=== PATIENT | male | born 1960 | race Caucasian/White ===

== ENCOUNTER → 2024-03-24 07:04 | Outpatient (REF) | payer OTHER, SELFPAY | LOC: HWRAD 07:04 | PROVIDERS: ATTENDING PHYSICIAN Physician Assistant | DX: R74.8 Abnormal levels of other serum enzymes (principal) | CPT/HCPCS: 76700 ==

== ENCOUNTER 2025-05-22 09:36 | Inpatient (IN) | payer OTHER, MEDICARE, SELFPAY ==
[2025-05-22] VITALS (9 sets, daily range): BP systolic 117–162; BP diastolic 81–104; BMI 29.6
--- NOTE | 2025-05-22 06:54 | ED.GENMED ---
History of Present Illness
<Dane Khan PA-C - Last Filed: 05/22/25 12:59>
General
Chief Complaint: Musculo-Skeletal Complaint
Source: patient
Time Seen by Provider: 05/22/25 06:31
History of Present Illness
History of Present Illness:
4-year-old male with past medical history of hypertension, hyperlipidemia, previous hep C (treated), hemochromatosis, diagnosed with new onset diabetes with a hemoglobin A1c of 7 presenting to the emergency department for evaluation of bilateral
lower extremity discomfort stating that he was recently treated for gout about 3 weeks ago and completed a course of prednisone and allopurinol with improvement of symptoms but this morning awoke stating when he got out of bed he felt as if his legs
were not working properly and that he was having trouble walking. Patient states that he had to go down his stairs sideways because he felt he could not move his legs to ambulate properly.. He did note some mild swelling to the left but not much
pain associated with this. Patient denies any fevers, bowel urinary incontinence, saddle anesthesias, back pain, focal weakness/numbness or paresthesia, chest pain or shortness of breath. Denies any history of similar. No reported trauma.
Past History
<Dane Khan PA-C - Last Filed: 05/22/25 12:59>
Past History
ED Past Medical History: HTN, Hypercholesterolemia and Other (GOUT, C. difficile)
ED Past Surgical History: Orthopedic
Social History
Tobacco: Non-smoker
Alcohol: None
Drug: None
Personal:
Living: with family
Employment: Employed
Family History
Family History: Other (Noncontributory)
Review of Systems
<Dane Khan PA-C - Last Filed: 05/22/25 12:59>
Review of Systems
All Other Systems: ROS reviewed and negative except as documented in HPI and ROS
Phy Exam
<Dane Khan PA-C - Last Filed: 05/22/25 12:59>
Physical Exam
Physical Exam:
GENERAL: Alert , in no apparent distress
HEAD: Normocephalic atraumatic
EYE: clear conjunctiva
NECK: Supple
ENT: o/p clr, mmm.
CARDIAC: Regular rate and rhythm .
LUNGS: Clear breath sounds bilaterally, no acute respiratory distress, no wheezes/rales/rhonchi
ABDOMEN: Soft, without focal tenderness, no r/g, no cvat
BACK: no focal areas of ttp
NEUROLOGICAL: Alert and oriented, no focal neuro deficits, sensation grossly intact to light touch bilateral lower extremities, EHL intact bilaterally, patellar deep tendon reflexes and equal bilaterally
SKIN: Warm and dry, skin intact. No rashes
MUSCULOSKELETAL: No edema, well perfused. Easily palpable pedal and tibial pulses. Cap refill less than 2 seconds. Patient allows for full range of motion at the hips, knee and ankle.
PSYCH: Normal and appropriate interaction.
Scores
<Dane Khan PA-C - Last Filed: 05/22/25 12:59>
Heart Failure Risk
Heart Failure Risk Score: Not Applicable
Heart Score for Chest Pain Patients
STEMI patient?: Not applicable
Withdrawal Assessment of Alcohol
Withdrawal Assessment Completed?: Not applicable
Course
<Dane Khan PA-C - Last Filed: 05/22/25 12:59>
Orders/Labs/Results
Orders:
Orders
05/22/25 Breakfast
Cholesterol Lowering
At Your Request: Full Participation
Cholesterol Lowering: Sodium, 2 Gram
05/22/25 06:42
Urinalysis Urgent
05/22/25 06:44
Bladder Scan- Treatment ONCE
05/22/25 07:05
C-Reactive Protein Urgent
Comment: ADD ON
CPK [Creatine Phosphokinase] Urgent
Complete Blood Count/With Diff Urgent
Comprehensive Metabolic Panel Urgent
Ehrlichia/Anaplasma by PCR [S] Urgent
Erythrocyte Sed Rate Urgent
Comment: ADD ON
Ferritin Urgent
Comment: ADD ON
Folate Urgent
Comment: ADD ON
Free T4 Urgent
Lyme Progressive Urgent
TSH Reflex To Free T4 Urgent
Comment: ADD ON
Uric Acid Urgent
Vitamin B12 Urgent
Comment: ADD ON
05/22/25 07:39
Add On- LAB Urgent
Tests Added?: CRP, CPK Isoenzyme Sed Rate, Ferritin, Folate, Vit B12, TSH to T4
Consult Neurology [NEUROLOGY CONSULT] Routine
Consulting Provider: Yandel Marr
Was physician already notified: Yes
05/22/25 08:48
EMG [Electromyography] Routine
Reason for Exam: with Rep Stim
05/22/25 08:49
Add On- LAB Routine
Comments:: Please add to today's labs or draw as routine
Tests Added?: Oztifhozaccdi-lszazn-Rgd
05/22/25 08:50
MR Thoracic Spine W/o & With Routine
Comment:
Reason For Exam: myelopathy
Recent pill cam endoscopy?: No
05/22/25 08:51
MR Lumbar W/o & With Contrast Routine
Comment:
Reason For Exam: myelopathy
Recent pill cam endoscopy?: No
05/22/25 08:55
Lorazepam [Ativan] 1 mg PO ONCE PRN PRN
05/22/25 09:07
Admit/Transfer Patient As Directed
Co-Sign Provider:
Level of Care: Inpatient admission
Assign to:: IMU- Intermediate Care
Physician / Group: Dr Douglas
Diagnosis: GBS
Reason for Hospitalization: GBS
Expected length of stay greater than two midnights?: Yes
ELOS- Estimated Length of Stay in days: 2
I certify the patient meets the requirements for IP care: Yes
PRN Pain Medication Management As Directed
May give lesser potent ordered pain med per pt: Yes
preference::
Protocol:: Medication orders for pain may be administered in a
manner that supports deferring to patient preference
when the pt is:
- Requesting an ordered lesser potent pain medication.
Least to most potent pain medications are defined
as: acetaminophen < NSAID < tramadol < opioids
(morphine, oxycodone, hydromorphone).
- Requesting a lesser dose of the same medication IF
ORDERED.
- Requesting a less intrusive route of administration
if both routes are prescribed by the provider (PO <
IV).
05/22/25 09:08
Code Status As Directed
Resuscitation Status: Full Code
05/22/25 09:15
Consult Physiatry [Physiatry Consult] Routine
Consulting Provider: Iraj Staley
Was physician already notified: Yes
Reason for consult: emg/ Myasthenia or GBS or other
05/22/25 09:17
Acetylcholine Receptor Bind Ab [S] Routine
Copper, Serum [S] Routine
Comment: may use blood in lab
Vitamin D, 25-OH Routine
Comment: may add to blood in lab
Vitamin E [S] Routine
Comment: May add to blood in lab
05/22/25 11:05
Acetaminophen [Tylenol] 650 mg PO Q4HPRN PRN
Bisacodyl [Dulcolax] 10 mg RECTAL [id number] PRN
Docusate W/Senna [Senokot-S] 1 tablet PO BIDPRN PRN
Polyethylene Glycol Powder [Miralax] 17 grams PO DAILYPRN PRN
05/22/25 11:05
Activity As Directed
Activity Level: Out of Bed-Early Mobility
Vital Signs As Directed
Frequency: Per unit guidelines
DX Deep Vein Thrombosis Video Routine
05/22/25 18:00
Enoxaparin Sodium [Lovenox] 40 mg SC QPM
05/23/25 06:00
Basic Metabolic Panel IN AM
Complete Blood Count/With Diff IN AM
Abnormal Lab Results
05/22/25
07:05
WBC 11.2 H 10^3/uL
(4.8-10.8)
RBC 4.42 L 10^6/uL
(4.70-6.10)
MCH 32.1 H pg
(27.0-31.0)
Abs Immat Gran (auto) 0.1 H 10^3/uL
(0-0.05)
Absolute Neuts (auto) 7.2 H 10^3/uL
(1.4-6.5)
Absolute Monos (auto) 0.9 H 10^3/uL
(0.1-0.6)
Immature Gran % 1.3 H %
(0-0.5)
Glucose 147 H mg/dl
(70-99)
Ferritin 590.0 H ng/ml
(17.9-464.0)
ALT 56 H U/L
(0-50)
C-Reactive Protein 25.20 H mg/L
(0.0-10.00)
Folate > 20.0 H ng/ml
(2.76-20)
TSH (Reflex) 6.52 H uIU/ml
(0.47-4.68)
05/22/25 07:05
05/22/25 07:05
Vital Signs
Initial and Last Documented VS:
Initial Vital Signs
Temp Pulse Resp BP Pulse Ox
99.3 F 97 16 130/89 99
05/22/25 06:25 05/22/25 06:25 05/22/25 06:25 05/22/25 06:25 05/22/25 06:25
Last Documented Vital Signs
Temp Pulse Resp BP Pulse Ox
99.3 F 89 16 117/81 97
05/22/25 06:25 05/22/25 12:27 05/22/25 11:35 05/22/25 12:22 05/22/25 12:27
<Russell Wood, DO - Last Filed: 05/22/25 12:50>
Orders/Labs/Results
Orders:
Orders
05/22/25 Breakfast
Cholesterol Lowering
At Your Request: Full Participation
Cholesterol Lowering: Sodium, 2 Gram
05/22/25 06:42
Urinalysis Urgent
05/22/25 06:44
Bladder Scan- Treatment ONCE
05/22/25 07:05
C-Reactive Protein Urgent
Comment: ADD ON
CPK [Creatine Phosphokinase] Urgent
Complete Blood Count/With Diff Urgent
Comprehensive Metabolic Panel Urgent
Ehrlichia/Anaplasma by PCR [S] Urgent
Erythrocyte Sed Rate Urgent
Comment: ADD ON
Ferritin Urgent
Comment: ADD ON
Folate Urgent
Comment: ADD ON
Free T4 Urgent
Lyme Progressive Urgent
TSH Reflex To Free T4 Urgent
Comment: ADD ON
Uric Acid Urgent
Vitamin B12 Urgent
Comment: ADD ON
05/22/25 07:39
Add On- LAB Urgent
Tests Added?: CRP, CPK Isoenzyme Sed Rate, Ferritin, Folate, Vit B12, TSH to T4
Consult Neurology [NEUROLOGY CONSULT] Routine
Consulting Provider: Yandel Marr
Was physician already notified: Yes
05/22/25 08:48
EMG [Electromyography] Routine
Reason for Exam: with Rep Stim
05/22/25 08:49
Add On- LAB Routine
Comments:: Please add to today's labs or draw as routine
Tests Added?: Hrhlbvnezjpit-ybavhs-Ucy
05/22/25 08:50
MR Thoracic Spine W/o & With Routine
Comment:
Reason For Exam: myelopathy
Recent pill cam endoscopy?: No
05/22/25 08:51
MR Lumbar W/o & With Contrast Routine
Comment:
Reason For Exam: myelopathy
Recent pill cam endoscopy?: No
05/22/25 08:55
Lorazepam [Ativan] 1 mg PO ONCE PRN PRN
05/22/25 09:07
Admit/Transfer Patient As Directed
Co-Sign Provider:
Level of Care: Inpatient admission
Assign to:: IMU- Intermediate Care
Physician / Group: Dr Douglas
Diagnosis: GBS
Reason for Hospitalization: GBS
Expected length of stay greater than two midnights?: Yes
ELOS- Estimated Length of Stay in days: 2
I certify the patient meets the requirements for IP care: Yes
PRN Pain Medication Management As Directed
May give lesser potent ordered pain med per pt: Yes
preference::
Protocol:: Medication orders for pain may be administered in a
manner that supports deferring to patient preference
when the pt is:
- Requesting an ordered lesser potent pain medication.
Least to most potent pain medications are defined
as: acetaminophen < NSAID < tramadol < opioids
(morphine, oxycodone, hydromorphone).
- Requesting a lesser dose of the same medication IF
ORDERED.
- Requesting a less intrusive route of administration
if both routes are prescribed by the provider (PO <
IV).
05/22/25 09:08
Code Status As Directed
Resuscitation Status: Full Code
05/22/25 09:15
Consult Physiatry [Physiatry Consult] Routine
Consulting Provider: Iraj Staley
Was physician already notified: Yes
Reason for consult: emg/ Myasthenia or GBS or other
05/22/25 09:17
Acetylcholine Receptor Bind Ab [S] Routine
Copper, Serum [S] Routine
Comment: may use blood in lab
Vitamin D, 25-OH Routine
Comment: may add to blood in lab
Vitamin E [S] Routine
Comment: May add to blood in lab
05/22/25 11:05
Acetaminophen [Tylenol] 650 mg PO Q4HPRN PRN
Bisacodyl [Dulcolax] 10 mg RECTAL [id number] PRN
Docusate W/Senna [Senokot-S] 1 tablet PO BIDPRN PRN
Polyethylene Glycol Powder [Miralax] 17 grams PO DAILYPRN PRN
05/22/25 11:05
Activity As Directed
Activity Level: Out of Bed-Early Mobility
Vital Signs As Directed
Frequency: Per unit guidelines
DX Deep Vein Thrombosis Video Routine
05/22/25 18:00
Enoxaparin Sodium [Lovenox] 40 mg SC QPM
05/23/25 06:00
Basic Metabolic Panel IN AM
Complete Blood Count/With Diff IN AM
Abnormal Lab Results
05/22/25
07:05
WBC 11.2 H 10^3/uL
(4.8-10.8)
RBC 4.42 L 10^6/uL
(4.70-6.10)
MCH 32.1 H pg
(27.0-31.0)
Abs Immat Gran (auto) 0.1 H 10^3/uL
(0-0.05)
Absolute Neuts (auto) 7.2 H 10^3/uL
(1.4-6.5)
Absolute Monos (auto) 0.9 H 10^3/uL
(0.1-0.6)
Immature Gran % 1.3 H %
(0-0.5)
Glucose 147 H mg/dl
(70-99)
Ferritin 590.0 H ng/ml
(17.9-464.0)
ALT 56 H U/L
(0-50)
C-Reactive Protein 25.20 H mg/L
(0.0-10.00)
Folate > 20.0 H ng/ml
(2.76-20)
TSH (Reflex) 6.52 H uIU/ml
(0.47-4.68)
05/22/25 07:05
05/22/25 07:05
Vital Signs
Initial and Last Documented VS:
Initial Vital Signs
Temp Pulse Resp BP Pulse Ox
99.3 F 97 16 130/89 99
05/22/25 06:25 05/22/25 06:25 05/22/25 06:25 05/22/25 06:25 05/22/25 06:25
Last Documented Vital Signs
Temp Pulse Resp BP Pulse Ox
99.3 F 89 16 117/81 97
05/22/25 06:25 05/22/25 12:27 05/22/25 11:35 05/22/25 12:22 05/22/25 12:27
<Dane Khan PA-C - Last Filed: 05/22/25 12:59>
MDM/Problems Addressed
Differential Diagnosis Includes:
Rhabdomyolysis
Lumbar radiculopathy
Spinal stenosis
Myelopathy
Guillan [place]
Cauda equina
Epidural abscess
Osteomyelitis/discitis
Electrolyte imbalance
Lyme or other tickborne illness
MDM/Problems Addressed:
64-year-old male presenting to the ER for evaluation of bilateral lower remedy weakness, having difficult time ambulating. No fevers or infectious symptoms presently. Exam is reassuring and the fact that patient is moving all extremities, no focal
neurologic status noted. Will check labs. Disposition pending.
<Dane Khan PA-C - Last Filed: 05/22/25 12:59>
*Pulse Oximetry
SaO2: 99
Oxygen Mode of Delivery: Room air
Patient hypoxic: no
*Critical Care Note
Total Time (30-74mins, 75-104mins- exclusive of procedures): Not Applicable
<Dane Khan PA-C - Last Filed: 05/22/25 12:59>
Patient Management
Discussion with other providers: Hospitalist and Hot Frame Tender
Escalation/DeEscalation of care consider admission/obs:
Patient seen by neurology who is recommending patient be admitted for further evaluation. They have ordered MRI of the thoracic and lumbar spine in addition to ordering an EMG. They will also be ordering IVIG to be initiated on the patient today.
Hospitalist team was notified and accepts for continued evaluation and treatment. Patient updated on the treatment plan
ED Attending Note
<Dane Khan PA-C - Last Filed: 05/22/25 12:59>
-
Portions of this chart may have been created with voice recognition software.� Occasional wrong word or��sound alike� substitutions may have occurred due to the inherent limitations of voice recognition software.
<Russell Wood DO - Last Filed: 05/22/25 12:50>
ED Attending Note
Patient seen and examined by attending physician: Yes
ED Attending Note:
I have reviewed and agree with history and treatment plan by Brandyn Khan PA-C. My exam revealed mild left ptosis, otherwise normal. Concern for possible Guillain-Ramirez� syndrome. Difficulty walking. Patient will require further evaluation.
Neurology consulted.
Discharge Plan
Departure
Patient Disposition: Admit
Date of Disposition: 05/22/25
Time of Disposition: 09:14
Presentation/result/management discussed w/ accepting MD/DO: Hospitalist
Discharge Problem:
Weakness of both lower extremities
Interventions
Interventions:
*Risk Screen - Suicide Last Done: 05/22/25 06:25
*General Assessment Last Done: 05/22/25 06:44
*Neglect/Abuse Screening Last Done: 05/22/25 06:25
*ED- Fall Risk Assessment Last Done: 05/22/25 06:25
*ED COVID-19 Vaccine History Last Done: 05/22/25 06:25
ED-Musculoskeletal Assessment Last Done: 05/22/25 06:44
[2025-05-22 07:13] LABS: Hematocrit 41.3 % (39.0-52.0); Hemoglobin 14.2 g/dL (13.0-18.0); Mean Corp Hgb Conc. 34.4 g/dL (33.0-37.0); Mean Corpuscular Volume 93.4 fL (80.0-94.0); Nucleated Red Blood Cells % 0 % (-); Platelet Count 258 10^3/uL (130-400); Red Cell Dist. Width 13.4 % (11.5-14.5)
[2025-05-22 07:24] LABS: ALT (SGPT) 56 U/L (0-50); AST (SGOT) 55 U/L (17-59); Albumin 4.7 g/dl (3.5-5.0); Alkaline Phosphatase 65 U/L (38-126); Blood Urea Nitrogen 19 mg/dl (9-20); Calcium 9.3 mg/dl (8.4-10.2); Carbon Dioxide 23 mmol/L (22-30); Chloride 103 mmol/L (98-107); Estimated Creatinine Clearance 83 ml/min; Glucose 147 mg/dl (70-99); Potassium 4.6 mmol/L (3.5-5.1); Sodium 137 mmol/L (135-145); Total Protein 7.4 g/dl (6.3-8.2); Uric Acid 5.5 mg/dl (3.5-8.5); eGFR > 60.00
[2025-05-22 08:28] LABS: C-Reactive Protein 25.20 mg/L (0.0-10.00)
--- NOTE | 2025-05-22 08:36 | CON.NEURO4 ---
Addendum entered and electronically signed by Yandel Marr MD 05/22/25 10:43:
Studies reviewed.
I have personally examined the patient. I reviewed and agree with the DRY CLEANING CHECKER's Note.
My addenda:
Awake, alert, interactive. No acute distress.
Speech intact.
Follows 2-step requests w/o difficulty. No tremor.
Extra-ocular movements grossly intact.
Facial movements full and symmetric. Hearing intact to normal conversational volume.
Normal UE movements bilaterally. 4-5 strength bilateral lower extremities proximally and full distally.
Neck: full ROM.
Chest: no dyspnea
Heart: no JVD
Ext: (-) Clubbing, (-) Cyanosis, (-) Edema
IMPRESSIONS/RECOMMENDATIONS:
Abrupt onset of bilateral lower extremity weakness and left eye ptosis which is fatigable
Differential diagnosis includes myasthenia gravis/Lambert-Eaton myasthenic syndrome or myopathy which is less likely. Differential diagnosis also includes 2 unrelated processes including the left eye ptosis and potential spinal abnormality
producing bilateral proximal weakness although this is less likely, especially in light of absence of bladder and bowel dyscontrol.
Check EMG with repetitive stimulation EMG due to the possibility of neuromuscular junction abnormality. Appreciate assistance of physiatry with this testing
Check blood work potential metabolic abnormalities
Initiate immunoglobulin 400 milligrams per kilogram per day x 5 days in hopes of remediating possible neuromuscular junction abnormality
Check MRI of thoracic and lumbar spines with and without contrast to better determine if there is a structural abnormality producing symptoms in the lower extremities
Provide lorazepam prior to MRI imaging
Would avoid steroid use as this might have been the catalyst for onset of symptoms
Would hold use of atorvastatin due to the possibility of myopathy due to the same, restart based on EMG results
D/W patient
All questions answered.
Will continue to follow patient.
Original Note:
Consultation - Neurology 4
-
CONSULTING PHYSICIAN: Yandel Marr MD
REFERRING PHYSICIAN: ER/Dane Khan PA-C
DICTATED BY: MILADY Yao
DATE/TIME OF REQUEST: 05/22/25
DATE/TIME OF CONSULTATION: 05/22/25
Reason for Consultation: Bilateral leg discomfort
History of Present Illness:
This is a 64-year-old right-handed male who has presented to the hospital with report of bilateral lower extremity discomfort and gait ataxia. Patient reports that for the past several months he has been following with Rheumatology due to gout and
possible arthritis, he has been having intermittent left ankle swelling. He was initially on colchicine, allopurinol, and prednisone; he notes colchicine was stopped a few weeks ago. He notes that he used to walk a lot and workout daily but notes
that as of January 2025 he has been more fatigued and not walking as much due to feet discomfort. He reports having cramps in bilateral thighs last evening, he drank an electrolyte drink and went to bed in his usual state last night. This morning
(05/22/25) he woke up around 0430 and reports he couldn't walk normally. He notes a tingling discomfort equally in bilateral thighs that spreads down his legs to his toes. This discomfort resolves when he is completely at rest. When he lifts his legs
up, stands, or walks the discomfort returns/increases. He also notes that his left ankle is mildly swollen again. He denies any headache, dizziness, vision changes, neck/back pain, and bladder/bowel dysfunction.
Past Medical History: HTN, HLD, NIDDM, hemochromatosis, hepatitis C, Tophi gout, arthritis, C. diff, iron deficiency, submucosal lesion of the stomach
Surgical History: Liver biopsy, surgical debridement L great toe due to gout
Family History: Reviewed and noncontributory.
Social History: Denies tobacco, alcohol, and illicit drug use.
Allergies: Levofloxacin, metronidazole, shellfish, bees.
Home Medications: See below.
Review of Symptoms:
Patient denies any fever, headache, chest pain, shortness of breath, GI or symptoms.
�Per the HPI.�All systems are reviewed negative except above.
Physical Exam:
The patient is afebrile, abdomen is nondistended, breathing is unlabored, skin is warm and dry, trace left ankle edema.
Neurologic Examination:
The patient is awake, alert and oriented x 3. He is able to follow commands and answer questions appropriately. There is no aphasia or dysarthria. On cranial nerve assessment, pupils are 3 mm bilateral, round and reactive to light and
accommodation. Visual bhakta are full. Extraocular movements are intact, reports diplopia with upgaze and left upgaze. Facial sensations are intact and bilaterally symmetrical. There is a slight ptosis on the left. Hearing is intact bilaterally to
normal conversation volume. Tongue palate and uvula are midline. Sternocleidomastoid strengths are full bilaterally. Neck flexion/extension is 5/5. Motor strengths are 5/5 bilateral upper and 4+/5 proximal bilateral lower extremities, 5/5 bilateral
dorsiflexion/extension on medical research [place] scale. There is no drift or involuntary movement noted. Deep tendon reflexes are 1+ bilateral upper and lower extremities and Babinski is absent bilaterally. Sensation of temperature and vibration
are intact. There was no extinction noted on double simultaneous stimulation. Coordination is intact by finger to nose bilaterally.
Lab Results: See below.
Neuro Imaging: None.
Differentials for the patient's presentation include:
1. Concern for myasthenia gravis producing proximal bilateral lower extremity weakness and left ptosis/diplopia; possibly triggered by steroid exposure. Myopathy (in the setting of colchicine/statin use) or spinal abnormality also possibly
contributing to symptoms but less likely.
Patient has the following risk factors for their symptoms: Colchicine/statin/prednisone use
Recommendations:
-Ordering an EMG with repetitive stimulation.
-MRI thoracic and lumbar spine pending.
-Start IVIG x5 days now.
-Would avoid statin usage until EMG is obtained.
-PT/OT evaluations.
-DVT prophylaxis.
Discussed patient care with: Dr. Marr, the patient
Vital Signs and Labs
-
Vital Signs and Labs:
Vital Signs
Temp Pulse Resp BP Pulse Ox
99.3 F 97 16 130/89 99
05/22/25 06:25 05/22/25 06:25 05/22/25 06:25 05/22/25 06:25 05/22/25 07:00
Lab Results
05/22/25 07:05
05/22/25 07:05
Sodium 137 mmol/L (135-145) 05/22/25 07:05
Potassium 4.6 mmol/L (3.5-5.1) 05/22/25 07:05
BUN 19 mg/dl (9-20) 05/22/25 07:05
Glucose 147 mg/dl (70-99) H 05/22/25 07:05
Calcium 9.3 mg/dl (8.4-10.2) 05/22/25 07:05
Vitamin B12 Cancelled 05/22/25 07:34
Medications
-
Active Medications
Generic Name Dose Route Start Last Admin
Trade Name Freq PRN Reason Stop Dose Admin
Immune Globulin 30 gram 05/22/25 08:52
Immune Globulin (Calculator Uses Ibw) - Pharmacy To Place Order 0.4 gram/kg (30 gram) 05/22/25 08:53
IV
DIRECTED ONE
Home Medications
�Medication �Instructions �Recorded
atorvastatin 10 mg tablet 20 mg PO HS High cholesterol 11/14/14
lisinopril 20 mg tablet 20 mg PO HS ##0 12/17/14
pantoprazole 40 mg tablet,delayed 40 mg PO DAILY 01/05/22
release
[id number] 140 gram-sod sulfate 9 1 ea PO DIRECTED 01/05/22
gram-NaCl 5.2gram-KCl-C oral pwdr
packs (Plenvu)
[2025-05-22 09:06] LABS: Ferritin 590.0 ng/ml (17.9-464.0)
--- NOTE | 2025-05-22 09:10 | HPS.HSE ---
Family Physician
-
Family Physician:
Chief Complaint
-
LE weakness
History of Present Illness
Patient is 64 years old male with history of hypertension, hyperlipidemia, gout, hypothyroidism, presented to the hospital with sudden onset of lower extremity weakness. Patient experienced bilateral lower extremity weakness and ataxia since last
evening. Patient started having some cramps on his legs and he has been taking steroids prescribed by his social welfare research worker as outpatient over the last few weeks that was transitioned from colchicine. Patient was unable to walk up the stairs due to
his profound weakness and he also noted some ankle swelling and also paresthesias with numbness/tingling sensation on both legs. He denied any dizziness, vision changes, bowel bladder incontinence. He denies any fevers or chills. He did have some
mild neck discomfort at some point but improved with regular NSAID's. In the ER neurology was consulted and recommended IV Ig and further workup. He was referred to hospitalist service for further evaluation.
Medical History
Past Medical History
Past Medical History: Reports Other (Hypertension, hyperlipidemia, gout, hypothyroidism, diabetes mellitus, hemochromatosis, hepatitis C, tophi gout, arthritis, iron deficiency anemia, C. difficile in the past, submucosal lesion of the stomach.)
Past Surgical History: Reports Other (Liver biopsy, left great toe surgical debridement due to gout.)
Social History
Tobacco: Non-smoker
Alcohol: None
Drug: None
Family History
Family History: Not pertinent
Allergies / Home Medications
Allergies reflects when Allergies were last updated in [facility].
Home Medications with original date entered in [facility]
Allergy/Medication List:
Allergies
Allergy/AdvReac Type Severity Reaction Status Date / Time
levofloxacin (From Levaquin) AdvReac Nausea / Verified 05/22/25 06:24
Vomiting
metronidazole (From Flagyl) AdvReac Nausea / Verified 05/22/25 06:24
Vomiting
Home Medications
atorvastatin 10 mg tablet 20 mg PO HS High cholesterol 11/14/14
lisinopril 20 mg tablet 20 mg PO HS ##0 12/17/14
allopurinol 300 mg tablet 600 mg PO HS 05/22/25
ibuprofen 200 mg tablet (Advil) 200 mg PO Q6HPRN PRN mild pain 05/22/25
levothyroxine 75 mcg tablet (Synthroid) 75 mcg PO DAILY 05/22/25
prednisone 5 mg tablet 5 mg PO DAILY 05/22/25
psyllium 1 packet PO DAILY 05/22/25
therapeutic multivitamin 1 tab PO DAILY 05/22/25
Review of Systems
-
A 12 point ROS was completed and negative except as noted: Yes
Physical Exam
Vital Signs
Vital Signs
Temp Pulse Resp BP Pulse Ox
99.3 F 97 16 130/89 99
05/22/25 06:25 05/22/25 06:25 05/22/25 06:25 05/22/25 06:25 05/22/25 07:00
Physical exam:
General: Acutely ill
HEENT: Normocephalic, Atraumatic and Moist Mucous Membranes
Respiratory: Clear to Auscultation; Negative Wheezes, Rales or Rhonchi
Cardiac: Regular Rhythm and S1/S2
GI: Soft, Nontender and Nondistended
Musculoskeletal: No Clubbing, No Cyanosis and No Edema
Neuro: Awake, Alert and Oriented, strength 4 out of 5 in both extremities, deep tendon reflexes are absent, cranial nerves are intact but mild L ptosis, no sensory deficits
Psych: Calm
Physical Exam
General: Other
Laboratory Results
-
05/22/25 07:05
05/22/25 07:05
Laboratory Results
Total Bilirubin 1.0 mg/dl (0.2-1.3) 05/22/25 07:05
AST 55 U/L (17-59) 05/22/25 07:05
ALT 56 U/L (0-50) H 05/22/25 07:05
Alkaline Phosphatase 65 U/L (38-126) 05/22/25 07:05
Data Reviewed
-
Lab Data: Labs Reviewed by me
Impression/Plan
-
IMPRESSION:
Patient is 64 years old male came into the hospital with sudden onset of significant bilateral lower extremity weakness. Patient's presentation is very concerning for an neurological process so he will need to be treated and have workup currently
in the hospital.
PLAN:
Lower extremity weakness and mild ptosis:
Differential diagnosis includes myasthenia gravis versus Guillain-Ramirez� versus steroid myopathy versus spinal occupying lesion pathology versus other.
Plan for MRI thoracic and lumbar spine
Plan for EMG with repetitive stimulation
Check acetylcholine receptor antibody
Started on IV immunoglobulin
Neurology consult appreciated
Hyperlipidemia:
Hold statin for now and obtain CPK (normal) and EMG
Hypertension:
Continue lisinopril 20 mg p.o. daily
Monitor blood pressure and adjust medications accordingly
Hypothyroidism:
Obtain TSH
Continue thyroid replacement-he does not recall exactly the doses but he appears to be on 75 mcg p.o. daily
Gout:
Continue allopurinol-he is on 600 mg every evening.
Hold steroids
DVT prophylaxis:
Lovenox SQ
CODE STATUS:
Full code
Time spent 75 minutes
[2025-05-22 09:29] LABS: CKMB 1.6 ng/ml (0.0-3.4)
[2025-05-22 09:38] LABS: Folate > 20.0 ng/ml (2.76-20); Vitamin B12 442 pg/ml (239-931)
[2025-05-22 09:56] LABS: Vitamin D, 25-OH*** 40.4 ng/mL (30-80)
[2025-05-22] MEDS: GAMMAGARD 300 IV (12:24)
--- NOTE | 2025-05-22 13:50 | CM ---
Met with patient at bedside in the ED
Pharmacy verified: [facility] @ [address], [place]
Patient lives w/ and daughter (age 27); multilevel home; 2 steps to enter, 13 steps between floors; railings on inside stairs; half bath 1st floor; 2nd floor bath has tub w/shower
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
NO SNF or Home Health utilization history
Drove self to hospital; plans to drive self home
Plan: Discharge to home when stable; do not anticipate needs; Case Management will monitor and support if services recommended
--- NOTE | 2025-05-22 16:12 | W.PN.UPDATE ---
Update Note
Progress Note Update
Electrodiagnostic examination was completed at the patient's bedside.
Needle EMG of the left upper and left lower limbs was performed.
Nerve conduction studies of both lower limbs and the left upper limb was performed.
Repetitive nerve stimulation technique of the left facial and left ulnar nerves was performed.
Electrodiagnostic Findings:
Normal left facial motor and left ulnar motor nerve repetitive stimulation technique.
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
Full dictated report and tabular data to follow.
[2025-05-22] MEDS: LOVENOX 40 MG SC (18:02)
--- NOTE | 2025-05-22 18:07 | PTCARENOTE ---
Pt from Er AAO3 pleasant and cooperative, mostly independent .
--- NOTE | 2025-05-22 21:09 | PTCARENOTE ---
Received pt at change of shift. AAOx3. Pt states weakness in legs is still present but better. Able to stand at bedside with little difficulty; steady on feet. C/o tingling and pain from left ankle to left knee. Says that happens on occasion
and will 'eventually' subside. Left ankle has trace to +1 swelling. +PP. Lungs CTA; no difficulty breathing. NSR on monitor. Resting in bed with call silverman in reach.
[2025-05-22] MEDS: ZYLOPRIM 600 MG PO (22:30)
[2025-05-22] MEDS: ZESTRIL 20 MG PO (22:30)
[2025-05-22] MEDS: ULTRAM 25 MG PO (22:43)
--- NOTE | 2025-05-22 23:12 | PTCARENOTE ---
Pt c/o of increased pain in left leg; 10/10 from ankle to thigh. Notified FREIGHT ENGINEER. 1x dose of Tramadol ordered and administered. Ice pack also in place.
[2025-05-23] VITALS (21 sets, daily range): BP systolic 113–168; BP diastolic 73–110
[2025-05-23] MEDS: SYNTHROID 75 MCG PO (05:04)
[2025-05-23 05:25] LABS: Hematocrit 40.9 % (39.0-52.0); Hemoglobin 14.1 g/dL (13.0-18.0); Mean Corp Hgb Conc. 34.5 g/dL (33.0-37.0); Mean Corpuscular Volume 94.7 fL (80.0-94.0); Nucleated Red Blood Cells % 0 % (-); Platelet Count 247 10^3/uL (130-400); Red Cell Dist. Width 13.4 % (11.5-14.5)
[2025-05-23 05:36] LABS: Blood Urea Nitrogen 16 mg/dl (9-20); Calcium 9.1 mg/dl (8.4-10.2); Carbon Dioxide 24 mmol/L (22-30); Chloride 102 mmol/L (98-107); Estimated Creatinine Clearance 82 ml/min; Glucose 154 mg/dl (70-99); Potassium 4.5 mmol/L (3.5-5.1); Sodium 134 mmol/L (135-145); eGFR > 60.00
[2025-05-23] MEDS: THERAGRAN 1 TABLET PO (08:06)
[2025-05-23] MEDS: LIDOCAINE 4% PATCH 1 PATCH TOPICAL (08:06)
[2025-05-23] MEDS: METAMUCIL, KONSYL 1 PACKET PO (08:07)
--- NOTE | 2025-05-23 08:35 | PTCARENOTE ---
On walking rounds , pt co of L leg pain states L ankle was swollen now R ankle is swollen, also states he needs a med to do MRI, pt syaes he will not be able to lay flat as long as he has this leg pain. Ptbelieves the Allopurinol is making it worse
and he believes indomethacin works best. Tramdol did not help pain. Pt did not sleep all night
--- NOTE | 2025-05-23 09:15 | W.PN.HOSP.TC ---
Today's Communication/Plan
-
IVIG. MRI back.
Assessment / Plan
Assessment / Plan
Physical exam:
General: Acutely ill
HEENT: Normocephalic, Atraumatic and Moist Mucous Membranes
Respiratory: Clear to Auscultation; Negative Wheezes, Rales or Rhonchi
Cardiac: Regular Rhythm and S1/S2
GI: Soft, Nontender and Nondistended
Musculoskeletal: No Clubbing, No Cyanosis and No Edema
Neuro: Awake, Alert and Oriented, strength 4 out of 5 in both extremities, deep tendon reflexes are absent, cranial nerves are intact but mild L ptosis, no sensory deficits
Psych: Calm
A/P:
Lower extremity weakness and mild ptosis:
Differential diagnosis includes myasthenia gravis versus Guillain-Ramirez� versus steroid myopathy versus spinal occupying lesion pathology versus other.
Plan for MRI thoracic and lumbar spine
Possible LP
Status post EMG with repetitive stimulation
Check acetylcholine receptor antibody
Started on IV immunoglobulin
Neurology consult appreciated
Hyperlipidemia:
Hold statin for now and obtain CPK (normal) and EMG
Hypertension:
Continue lisinopril 20 mg p.o. daily
Monitor blood pressure and adjust medications accordingly
Hypothyroidism:
Obtain TSH
Continue thyroid replacement-he does not recall exactly the doses but he appears to be on 75 mcg p.o. daily
Gout:
Continue allopurinol-he is on 600 mg every evening.
Hold steroids
DVT prophylaxis:
Lovenox SQ
CODE STATUS:
Full code
Total time spent on today's encounter was 55 minutes which included time spent in counseling the patient/family regarding diagnosis and treatment plan as listed above, goals of care, and symptom management. Case was discussed with nursing staff,
specialists, and care coordinators/case management. All labs and imaging personally reviewed by me. Remainder the time spent in detailed review of previous records, lab data, imaging, and other medical provider documentation.
Anticipated Discharge: > 48 hours
Subjective/Interval History
-
Date of Service: May 23, 2025
Patient described weaker in his lower extremities. Also complaints of severe left knee pain from gout. No chest pain or shortness of breath. Afebrile
Objective Data
-
Labs:
Laboratory Results
05/23/25
05:02
WBC 9.9
Hgb 14.1
Hct 40.9
Plt Count 247
Sodium 134 L
Potassium 4.5
Chloride 102
Carbon Dioxide 24
BUN 16
Creatinine 0.9
Glucose 154 H
Calcium 9.1
Vital Signs:
Vital Signs
Temp Pulse Resp BP Pulse Ox
98.2 F 100 16 113/101 96
05/23/25 07:00 05/23/25 08:00 05/23/25 08:00 05/23/25 08:00 05/23/25 08:00
I&O
05/22/25 05/23/25 05/24/25
06:59 06:59 06:59
Output Total 1250 / 1250
Balance -1250 / -1250
--- NOTE | 2025-05-23 10:34 | W.PN.NEURO.1 ---
Today's Communication / Plan
-
.
Subjective/Objective
Subjective Data
Date of Service: May 23, 2025
Neurology follow-up note.
HPI: This is a 64-year-old man who presented to [facility] on 05/22/2025 with progressive sensory deficits.
Mr. Barber reports that his symptoms began on night with numbness in his left foot, which then progressed to his right foot. He now requires a walker for ambulationdue to imbalance. No reports of radicular back pain, sensory symptoms in
the hands, dysarthria, diplopia dyspnea or dysphagia, recent vaccinations GI respiratory illness. Mr. Barber states that observed L ptosis has been chronic.
ER VS: 130/89, 97�106, afebrile
EKG: Not available
PDMP:
Labs: Glucose�147, WBCs�11.2, normal platelets, CRP�25.2, vitamin B12�442, free T4�normal.
MAR: Gammagard 30 grams given at 05/22/25 at 12:24
NCS/EMG(05/22/2025) Mild chronic axonal sensory peripheral polyneuropathy.
PMH: gout, HTN, DLP, IGT, hypothyroidism, GERD
PSH: BL 1st toe arthroplasty
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
FH:Mother�CAD, father�CHF
All: Levofloxacin, Flagyl
ROS: General: Negative for fever, chills.
HEENT: Negative for vision changes, swallowing difficulties, speech changes.
Cardiovascular: Negative for chest pain.
Genitourinary: Negative for urinary frequency, urgency, incontinence.
Musculoskeletal: Positive for knee pain, ankle swelling, difficulty walking.
Neurological: Positive for numbness in legs, weakness in legs, imbalance. Negative for hand numbness, back pain, diplopia
General: Well developed. In no acute distress.
Cardio: Regular rate and rhythm without murmur. Extremities are without cyanosis or edema.
Neuro:
Mental Status: Alert, oriented to person, place, and date. Normal attention and recall. Good fund of knowledge. Follows complex requests across the midline. Comprehension, naming, and repetition intact.
Cranial Nerves: Pupils are equally round and reactive to light. EOMs full. Visual bhakta full to confrontation. L ptosis No nystagmus. Face symmetric. Normal hearing AU. The palate elevated well. SCMs and traps 5/5. Tongue midline. No
dysarthria.
Motor: Normal bulk and tone. No pronator or arm drift. Strength 5/5 throughout except for left dorsiflexion (4 out of 5), left foot eversion, plantarflexion and eversion 4 out of 5, right foot�5 out of 5. Pain related left hip flexion and near
extension.
Reflexes: 2+ throughout the upper extremities and 3+ knees. Plantar responses flexor bilaterally.
Sensory: Absent vibration at the toes ankles and bilateral knees. Absent proprioception at the toes.
Coordination: No dysmetria mild action hand tremor.
Gait: deferred
Assessment and Plan:
I. Guillain-Phoenix syndrome
II. Chronic left ptosis
III. Gout
-Continue Telemetry monitoring
-Continue IVIG 0.4mg/kg/day for 5 days with close monitoring of sodium and creatinine
-CSF(cell count, protein, glucose)
-PVR;
-MRI C/T spine w/wo erick with sedation.
-Start gabapentin 100 mg 3 times daily with titration as tolerated.
-DVT prophylaxis.
I personally reviewed all radiology and labs along with past medical records pertinent to current medical problems. Total time spent in patient care is 35 minutes.
Thank you for allowing us to participate in the care of this patient. We will continue to follow. Please do not hesitate to contact us with any questions or concerns.
Objective Data
Vital Signs
Temp Pulse Resp BP Pulse Ox
36.8 C 100 16 113/101 95
09/27/25 07:00 05/23/25 08:00 05/23/25 08:00 05/23/25 08:00 05/23/25 08:00
Lab Results
05/23/25 05:02
05/23/25 05:02
Sodium 134 mmol/L (135-145) L 05/23/25 05:02
Potassium 4.5 mmol/L (3.5-5.1) 05/23/25 05:02
BUN 16 mg/dl (9-20) 05/23/25 05:02
Glucose 154 mg/dl (70-99) H 05/23/25 05:02
Calcium 9.1 mg/dl (8.4-10.2) 05/23/25 05:02
Vitamin B12 Cancelled 05/22/25 07:34
Patient Allergies
levofloxacin (From Levaquin) Allergy (Verified 05/22/25 22:37)
Nausea / Vomiting
metronidazole (From Flagyl) Allergy (Verified 05/22/25 22:37)
Nausea / Vomiting
Vital Signs and Labs
-
Vital Signs and Labs:
Vital Signs
Temp Pulse Resp BP Pulse Ox
36.8 C 100 16 113/101 95
05/23/25 07:00 05/23/25 08:00 05/23/25 08:00 05/23/25 08:00 05/23/25 08:00
Lab Results
05/23/25 05:02
05/23/25 05:02
Sodium 134 mmol/L (135-145) L 05/23/25 05:02
Potassium 4.5 mmol/L (3.5-5.1) 05/23/25 05:02
BUN 16 mg/dl (9-20) 05/23/25 05:02
Glucose 154 mg/dl (70-99) H 05/23/25 05:02
Calcium 9.1 mg/dl (8.4-10.2) 05/23/25 05:02
Vitamin B12 Cancelled 05/22/25 07:34
Medications
-
Medications:
Generic Name Dose Route Start Last Admin
Trade Name Freq PRN Reason Stop Dose Admin
Acetaminophen 650 mg 05/22/25 11:05
Acetaminophen 325 Mg Tablet PO 06/19/25 11:04
Q4HPRN PRN
mild pain/ANDERS/temp> 100.4F
Allopurinol 600 mg 05/22/25 22:00 05/22/25 22:30
Allopurinol 300 Mg Tablet PO 06/19/25 21:59 600 mg
HS TRAVON Administration
Bisacodyl 10 mg 05/22/25 11:05
Bisacodyl 10 Mg Rectal Suppository RECTAL 06/19/25 11:04
[id number] PRN
constipation
Enoxaparin Sodium 40 mg 05/22/25 18:00 05/22/25 18:02
Enoxaparin Sodium 40 Mg/0.4 Ml Syringe SC 06/19/25 17:59 40 mg
QPM TRAVON Administration
Immune Globulin 30 grams in 300 mls @ 0 mls/hr 05/22/25 12:00 05/22/25 12:24
Gammagard IV 05/26/25 12:01 300 mls
DAILY@1200 TRAVON Administration
Protocol
Per Protocol
Levothyroxine Sodium 75 mcg 05/23/25 06:00 05/23/25 05:04
Levothyroxine 75 Mcg Tablet PO 06/20/25 05:59 75 mcg
DAILY@0600 TRAVON Administration
Lidocaine 1 patch 05/23/25 08:00 05/23/25 08:06
Lidocaine 4% Topical Patch TOPICAL 06/20/25 07:59 1 patch
DAILY TRAVON Administration
Protocol
Lisinopril 20 mg 05/22/25 22:00 05/22/25 22:30
Lisinopril 20 Mg Tablet PO 06/19/25 21:59 20 mg
HS TRAVON Administration
Lorazepam 1 mg 05/22/25 08:55
Lorazepam 1 Mg Tablet PO 05/23/25 18:00
ONCE PRN PRN
1 HR PRIOR TO MRI
Multivitamins Therapeutic 1 tablet 05/23/25 08:00 05/23/25 08:06
Multivitamin Tablet PO 06/20/25 07:59 1 tablet
DAILY TRAVON Administration
Patch Removal 0 patch 05/23/25 20:00
Remove Lidocaine Patch REMOVE 06/20/25 19:59
DAILY@2000 TRAVON
Polyethylene Glycol 17 grams 05/22/25 11:05
Polyethylene Glycol Powder 17 Grams Packet PO 06/19/25 11:04
DAILYPRN PRN
constipation
Psyllium Hydrophilic Mucilloid 1 packet 05/23/25 08:00 05/23/25 08:07
Psyllium Packet PO 06/20/25 07:59 1 packet
DAILY TRAVON Administration
Senna/Docusate Sodium 1 tablet 05/22/25 11:05
Docusate W/Senna (Rima-Colace) Tablet PO 06/19/25 11:04
BIDPRN PRN
constipation
Sodium Chloride 0 flush 05/22/25 12:00
Sodium Chloride 0.9% (Flush) Syringe IV 06/19/25 11:59
PER PROTOCOL TRAVON
Home Medications
-
Home Medications
atorvastatin 10 mg tablet 20 mg PO HS High cholesterol 11/14/14
lisinopril 20 mg tablet 20 mg PO HS ##0 12/17/14
allopurinol 300 mg tablet 600 mg PO HS 05/22/25
ibuprofen 200 mg tablet (Advil) 200 mg PO Q6HPRN PRN mild pain 05/22/25
levothyroxine 75 mcg tablet (Synthroid) 75 mcg PO DAILY 05/22/25
prednisone 5 mg tablet 5 mg PO DAILY 05/22/25
psyllium 1 packet PO DAILY 05/22/25
therapeutic multivitamin 1 tab PO DAILY 05/22/25
[2025-05-23] MEDS: VALIUM INJECTION 2 MG IV (10:48)
--- NOTE | 2025-05-23 11:35 | PTCARENOTE ---
Pt sent to MRI after 2 mg IV Valium, pt had a very difficult time standing to pivot to stretcher. DR Douglas aware
[2025-05-23] MEDS: GAMMAGARD 300 IV (13:04)
[2025-05-23] MEDS: DILAUDID 0.5 MG IV ×3 (13:55→22:20)
[2025-05-23 14:18] LABS: Urine Character Clear (Clear)
[2025-05-23] MEDS: NEURONTIN 100 MG PO (16:06)
[2025-05-23] MEDS: LOVENOX 40 MG SC (16:51)
--- NOTE | 2025-05-23 17:05 | PTCARENOTE ---
Pt experiencing worse leg pain, legs are warm + pedal pulses.
--- NOTE | 2025-05-23 17:18 | PTCARENOTE ---
Hospitalist and neuro TT re pt increasing pain orders given
[2025-05-23] MEDS: NEURONTIN 300 MG PO ×2 (18:09→21:37)
[2025-05-23] MEDS: REMOVE LIDOCAINE PATCH 1 PATCH REMOVE (19:56)
[2025-05-23] MEDS: ZYLOPRIM 600 MG PO (21:37)
[2025-05-23] MEDS: ZESTRIL 20 MG PO (21:37)
[2025-05-23] MEDS: TYLENOL 650 MG PO (22:20)
[2025-05-24] VITALS (11 sets, daily range): BP systolic 126–154; BP diastolic 75–100
[2025-05-24] MEDS: SYNTHROID 75 MCG PO (03:37)
[2025-05-24] MEDS: DILAUDID 0.5 MG IV ×3 (03:37→11:44)
[2025-05-24 04:11] LABS: Hematocrit 40.6 % (39.0-52.0); Hemoglobin 13.7 g/dL (13.0-18.0); Mean Corp Hgb Conc. 33.7 g/dL (33.0-37.0); Mean Corpuscular Volume 93.5 fL (80.0-94.0); Platelet Count 242 10^3/uL (130-400); Red Cell Dist. Width 13.2 % (11.5-14.5)
--- NOTE | 2025-05-24 04:14 | PTCARENOTE ---
Pt reporting intermittent nerve pain around b/l knees that can radiate up/down legs. Pt states that pain is severe at times and feels extremely weak in both legs. Pt expressed concern that he will not be able to stand/walk. Discussed current
treatment and care plan, support provided. Pain medication administered as needed. AAO x 3; ST on monitor; Will continue to monitor and assess.
[2025-05-24 04:41] LABS: Blood Urea Nitrogen 16 mg/dl (9-20); Calcium 9.5 mg/dl (8.4-10.2); Carbon Dioxide 23 mmol/L (22-30); Chloride 97 mmol/L (98-107); Estimated Creatinine Clearance 92 ml/min; Glucose 160 mg/dl (70-99); Potassium 4.6 mmol/L (3.5-5.1); Sodium 129 mmol/L (135-145); eGFR > 60.00
--- NOTE | 2025-05-24 07:30 | PTCARENOTE ---
Received patient A&Ox4, B/L LE weakness/neuropathy with current admission, on RA, NSR/ST from 90s to 100s, BP WNL, GI/ continent.
--- NOTE | 2025-05-24 08:05 | W.PN.NEURO.1 ---
Today's Communication / Plan
-
.
Subjective/Objective
Subjective Data
Date of Service: May 24, 2025
Neurology follow-up note.
24-hour events: Tachycardic up to 117, afebrile.
History of Present Illness
Mr. Barber continues to have ongoing leg pain and weakness. The patient reports current right leg pain, noting that yesterday the pain was predominantly in the left leg and then moved to the right leg.
The patient continues to experience bilateral leg weakness, with the left leg being notably weaker than the right. The patient denies any back, neck pain, tingling or numbness in the hands, change in urinary habits.
T-spine MRI w/wo erick�nonenhancing T4 1.2 cm T2 hyperintensity.
NCS/EMG(05/22/2025) mild chronic axonal sensory peripheral polyneuropathy.
Labs: Na-129.
PMH: gout, HTN, DLP, IGT, hypothyroidism, GERD
PSH: BL 1st toe arthroplasty
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
FH:Mother�CAD, father�CHF
All: Levofloxacin, Flagyl
ROS: Genitourinary: Negative for difficulties with urination.
Neurological: Negative for tingling or numbness in hands.
General: Well developed. In no acute distress.
Cardio: Regular rate and rhythm without murmur. Extremities are without cyanosis or edema.
Neuro:
Mental Status: Alert, oriented to person, place, and date. Normal attention and recall. Good fund of knowledge. Follows complex requests across the midline. Comprehension, naming, and repetition intact.
Cranial Nerves: Pupils are equally round and reactive to light. EOMs full. Visual bhakta full to confrontation. L ptosis No nystagmus. Face symmetric. Normal hearing AU. The palate elevated well. SCMs and traps 5/5. Tongue midline. No
dysarthria.
Motor: Normal bulk and tone. No pronator or arm drift. Strength 5/5 throughout except for left dorsiflexion (4- out of 5), left foot eversion/inversion 4 out of 5, right dorsiflexion�4/5 out of 5, left hip flexion, knee extension�4 out of 5.
Reflexes: 2+ throughout the upper extremities and 3+ knees. Plantar responses flexor bilaterally.
Sensory: Absent vibration at the toes ankles and bilateral knees. Absent proprioception at the toes.
Coordination: No dysmetria mild action hand tremor.
Gait: deferred
Assessment and Plan:
I. Thoracic myelopathy. Differential diagnosis includes inflammatory versus demyelinating, less likely infectious, neoplastic or vascular.
II. Chronic left ptosis
III. Chronic external sensory polyneuropathy. Autonomic dysfunction
IV. Mild hyponatremia
-Continue Telemetry monitoring
- Hold IVIG
- CSF(cell count, protein, glucose, OCB, MBP), myelopathy blood work
- PVR
- Brain, MRI C w/wo erick with sedation.
- Titrate gabapentin based on pain level.
- PT
- DVT prophylaxis.
I personally reviewed all radiology and labs along with past medical records pertinent to current medical problems. Total time spent in patient care is 35 minutes.
Thank you for allowing us to participate in the care of this patient. We will continue to follow. Please do not hesitate to contact us with any questions or concerns.
Objective Data
Vital Signs
Temp Pulse Resp BP Pulse Ox
36.4 C 98 20 133/88 94
05/24/25 03:00 05/24/25 06:00 05/24/25 06:00 05/24/25 06:00 05/24/25 06:00
Lab Results
05/24/25 03:58
05/24/25 03:58
Sodium 129 mmol/L (135-145) L 05/24/25 03:58
Potassium 4.6 mmol/L (3.5-5.1) 05/24/25 03:58
BUN 16 mg/dl (9-20) 05/24/25 03:58
Glucose 160 mg/dl (70-99) H 05/24/25 03:58
Calcium 9.5 mg/dl (8.4-10.2) 05/24/25 03:58
Vitamin B12 Cancelled 05/22/25 07:34
Patient Allergies
levofloxacin (From Levaquin) Allergy (Verified 05/22/25 22:37)
Nausea / Vomiting
metronidazole (From Flagyl) Allergy (Verified 05/22/25 22:37)
Nausea / Vomiting
Vital Signs and Labs
-
Vital Signs and Labs:
Vital Signs
Temp Pulse Resp BP Pulse Ox
36.6 C 98 20 133/88 94
05/24/25 11:00 05/24/25 06:00 05/24/25 06:00 05/24/25 06:00 05/24/25 06:00
Lab Results
05/24/25 03:58
05/24/25 03:58
Sodium 129 mmol/L (135-145) L 05/24/25 03:58
Potassium 4.6 mmol/L (3.5-5.1) 05/24/25 03:58
BUN 16 mg/dl (9-20) 05/24/25 03:58
Glucose 160 mg/dl (70-99) H 05/24/25 03:58
Calcium 9.5 mg/dl (8.4-10.2) 05/24/25 03:58
Vitamin B12 Cancelled 05/22/25 07:34
Medications
-
Medications:
Generic Name Dose Route Start Last Admin
Trade Name Freq PRN Reason Stop Dose Admin
Acetaminophen 650 mg 05/22/25 11:05 05/23/25 22:20
Acetaminophen 325 Mg Tablet PO 06/19/25 11:04 650 mg
Q4HPRN PRN Administration
mild pain/ANDERS/temp> 100.4F
Allopurinol 600 mg 05/22/25 22:00 05/23/25 21:37
Allopurinol 300 Mg Tablet PO 06/19/25 21:59 600 mg
HS TRAVON Administration
Bisacodyl 10 mg 05/22/25 11:05
Bisacodyl 10 Mg Rectal Suppository RECTAL 06/19/25 11:04
[id number] PRN
constipation
Enoxaparin Sodium 40 mg 05/22/25 18:00 05/23/25 16:51
Enoxaparin Sodium 40 Mg/0.4 Ml Syringe SC 06/19/25 17:59 40 mg
QPM TRAVON Administration
Gabapentin 300 mg 05/23/25 18:00 05/24/25 08:50
Gabapentin 300 Mg Capsule PO 06/20/25 17:59 300 mg
TID TRAVON Administration
Hydromorphone HCl 0.5 mg 05/23/25 13:58 05/24/25 07:37
Hydromorphone 0.5 Mg/0.5 Ml Syringe IV 06/06/25 13:57 0.5 mg
Q4HPRN PRN Administration
severe pain
Immune Globulin 30 grams in 300 mls @ 0 mls/hr 05/22/25 12:00 05/23/25 13:04
Gammagard IV 300 mls
On Hold: 05/24/25 08:16 DAILY@1200 TRAVON Administration
Protocol
Per Protocol
Sodium Chloride 1,000 mls @ 85 mls/hr 05/24/25 09:30 05/24/25 10:13
Nss IV 1,000 mls
.[id number] TRAVON Administration
Levothyroxine Sodium 100 mcg 05/25/25 06:00
Levothyroxine 100 Mcg Tablet PO 06/22/25 05:59
DAILY@0600 TRAVON
Lidocaine 1 patch 05/23/25 08:00 05/24/25 08:50
Lidocaine 4% Topical Patch TOPICAL 06/20/25 07:59 1 patch
DAILY TRAVON Administration
Protocol
Lisinopril 20 mg 05/22/25 22:00 05/23/25 21:37
Lisinopril 20 Mg Tablet PO 06/19/25 21:59 20 mg
HS TRAVON Administration
Multivitamins Therapeutic 1 tablet 05/23/25 08:00 05/24/25 08:49
Multivitamin Tablet PO 06/20/25 07:59 1 tablet
DAILY TRAVON Administration
Patch Removal 0 patch 05/23/25 20:00 05/23/25 19:56
Remove Lidocaine Patch REMOVE 06/20/25 19:59 1 patch
DAILY@2000 TRAVON Administration
Polyethylene Glycol 17 grams 05/22/25 11:05
Polyethylene Glycol Powder 17 Grams Packet PO 06/19/25 11:04
DAILYPRN PRN
constipation
Psyllium Hydrophilic Mucilloid 1 packet 05/23/25 08:00 05/24/25 08:50
Psyllium Packet PO 06/20/25 07:59 1 packet
DAILY TRAVON Administration
Senna/Docusate Sodium 1 tablet 05/22/25 11:05 05/24/25 08:49
Docusate W/Senna (Rima-Colace) Tablet PO 06/19/25 11:04 1 tablet
BIDPRN PRN Administration
constipation
Sodium Chloride 0 flush 05/22/25 12:00
Sodium Chloride 0.9% (Flush) Syringe IV 06/19/25 11:59
PER PROTOCOL TRAVON
Home Medications
-
Home Medications
atorvastatin 10 mg tablet 20 mg PO HS High cholesterol 11/14/14
lisinopril 20 mg tablet 20 mg PO HS ##0 12/17/14
allopurinol 300 mg tablet 600 mg PO HS 05/22/25
ibuprofen 200 mg tablet (Advil) 200 mg PO Q6HPRN PRN mild pain 05/22/25
levothyroxine 75 mcg tablet (Synthroid) 75 mcg PO DAILY 05/22/25
prednisone 5 mg tablet 5 mg PO DAILY 05/22/25
psyllium 1 packet PO DAILY 05/22/25
therapeutic multivitamin 1 tab PO DAILY 05/22/25
[2025-05-24] MEDS: SENOKOT-S 1 TABLET PO (08:49)
[2025-05-24] MEDS: THERAGRAN 1 TABLET PO (08:49)
[2025-05-24] MEDS: NEURONTIN 300 MG PO ×3 (08:50→21:39)
[2025-05-24] MEDS: METAMUCIL, KONSYL 1 PACKET PO (08:50)
[2025-05-24] MEDS: LIDOCAINE 4% PATCH 1 PATCH TOPICAL (08:50)
[2025-05-24] MEDS: NSS 1000 IV ×2 (10:13→21:39)
[2025-05-24] MEDS: PERCOCET 5/325 1 TABLET PO ×2 (13:44→20:03)
[2025-05-24] MEDS: LIDOCAINE 4% PATCH TOPICAL ×2 (13:49→13:50)
--- NOTE | 2025-05-24 14:01 | W.PN.HOSP.TC ---
Addendum entered and electronically signed by Fabian Douglas MD 05/24/25 14:09:
Patient also with hyponatremia---> could be SIADH pain related or IV immunoglobulin related as well. For now we will proceed to workup including urine osmolarity, serum osmolarity, urine sodium, cortisol. Gentle isotonic IV fluid for now and oral
fluid restriction until further workup is back.
Original Note:
Today's Communication/Plan
-
IV immunoglobulin. MRI cervical spine. Lumbar puncture
Assessment / Plan
Assessment / Plan
Physical exam:
General: Acutely ill
HEENT: Normocephalic, Atraumatic and Moist Mucous Membranes
Respiratory: Clear to Auscultation; Negative Wheezes, Rales or Rhonchi
Cardiac: Regular Rhythm and S1/S2
GI: Soft, Nontender and Nondistended
Musculoskeletal: No Clubbing, No Cyanosis and No Edema
Neuro: Awake, Alert and Oriented, strength 4 out of 5 in both extremities, deep tendon reflexes are markedly diminished, cranial nerves are intact but mild chronic L ptosis, decreased sensory in both legs.
Psych: Calm
A/P:
Lower extremity weakness and chronic ptosis:
Unclear etiology-->Differential diagnosis includes transverse myelitis versus inflammatory or demyelinating myelopathy versus myasthenia gravis versus Guillain-Ramirez�
Reviewed MRI thoracic and lumbar spine
Plan for MRI cervical spine
Plan for LP
Status post EMG with repetitive stimulation
Checking acetylcholine receptor antibody
Continue on IV immunoglobulin
Neurology consult and follow-up appreciated
Hyperlipidemia:
Continue to hold statin for now and obtain CPK (normal) and EMG
Hypertension:
Continue lisinopril 20 mg p.o. daily
Monitor blood pressure and adjust medications accordingly
Hypothyroidism:
TSH elevated
Will increase thyroid replacement to 100 mcg p.o. daily
Gout with gouty tophi:
Continue allopurinol-he is on 600 mg every evening.
Hold steroids
Continue pain medications
X-ray of the left knee reviewed
Check x-ray of the right knee as well
Peripheral neuropathy:
Started on gabapentin and increase as needed
DVT prophylaxis:
Lovenox SQ
CODE STATUS:
Full code
Total time spent on today's encounter was 55 minutes which included time spent in counseling the patient/family regarding diagnosis and treatment plan as listed above, goals of care, and symptom management. Case was discussed with nursing staff,
specialists, and care coordinators/case management. All labs and imaging personally reviewed by me. Remainder the time spent in detailed review of previous records, lab data, imaging, and other medical provider documentation.
Anticipated Discharge: > 48 hours
Subjective/Interval History
-
Date of Service: May 24, 2025
Patient states pain in his left knee is much improved today. Pain in the back also has improved. Complains of some pain in the right knee now. No chest pain or shortness of breath. Still very weak on his legs.
Objective Data
-
Labs:
Laboratory Results
05/24/25
03:58
WBC 10.4
Hgb 13.7
Hct 40.6
Plt Count 242
Sodium 129 L
Potassium 4.6
Chloride 97 L
Carbon Dioxide 23
BUN 16
Creatinine 0.8
Glucose 160 H
Calcium 9.5
Vital Signs:
Vital Signs
Temp Pulse Resp BP Pulse Ox
97.9 F 99 16 154/84 98
05/24/25 11:00 05/24/25 12:00 05/24/25 12:00 05/24/25 10:00 05/24/25 12:00
I&O
05/23/25 05/24/25 05/25/25
06:59 06:59 06:59
Output Total 1250 / 1250 710 / 710 1150 / 1150
Balance -1250 / -1250 -710 / -710 -1150 / -1150
[2025-05-24] MEDS: MIRALAX 17 GRAMS PO (16:34)
[2025-05-24] MEDS: LOVENOX 40 MG SC (17:52)
[2025-05-24] MEDS: REMOVE LIDOCAINE PATCH 1 PATCH REMOVE ×2 (20:03)
--- NOTE | 2025-05-24 21:36 | PTCARENOTE ---
Assumed care of Pt at shift change; Pt reports continued neuropathic pain in Left knee that can radiate up to thigh; Pain managed with Percocet 5mg, Pt reports pain relief better with PO versus IV dilaudid. VSS; ST on monitor; Lumbar puncture
and Brain MRI planned for tomorrow, reviewed with patient. Will continue to monitor and assess.
[2025-05-24] MEDS: ZYLOPRIM 600 MG PO (21:39)
[2025-05-24] MEDS: ZESTRIL 20 MG PO (21:39)
[2025-05-25] VITALS (16 sets, daily range): BP systolic 123–152; BP diastolic 69–101; PULSE 107
[2025-05-25] MEDS: PERCOCET 5/325 1 TABLET PO ×4 (03:33→21:02)
[2025-05-25 03:36] LABS: Hematocrit 39.0 % (39.0-52.0); Hemoglobin 13.6 g/dL (13.0-18.0); Mean Corp Hgb Conc. 34.9 g/dL (33.0-37.0); Mean Corpuscular Volume 94.7 fL (80.0-94.0); Nucleated Red Blood Cells % 0 % (-); Platelet Count 240 10^3/uL (130-400); Red Cell Dist. Width 13.2 % (11.5-14.5)
[2025-05-25 03:50] LABS: INR 1.06; PT 14.1 Sec (11.4-14.6)
[2025-05-25 03:51] LABS: Calcium 9.2 mg/dl (8.4-10.2); Carbon Dioxide 26 mmol/L (22-30); Chloride 99 mmol/L (98-107); Estimated Creatinine Clearance 82 ml/min; Glucose 128 mg/dl (70-99); Potassium 5.0 mmol/L (3.5-5.1); Sodium 132 mmol/L (135-145); eGFR > 60.00
[2025-05-25 04:01] LABS: Blood Urea Nitrogen 15 mg/dl (9-20)
[2025-05-25 04:07] LABS: C-Reactive Protein > 270.00 mg/L (0.0-10.00)
[2025-05-25 04:23] LABS: Cortisol, Random 10.6 ug/dl
[2025-05-25] MEDS: SYNTHROID 100 MCG PO (07:17)
--- NOTE | 2025-05-25 07:31 | PTCARENOTE ---
Pt AAOx3, called for IR for LP , pt statwes he slept well and oxycodone is relieving the pain. No edema in BLE today. Pt for MRI today .
[2025-05-25] MEDS: LIDOCAINE 4% PATCH 1 PATCH TOPICAL ×2 (07:41→07:42)
[2025-05-25] MEDS: THERAGRAN 1 TABLET PO (07:42)
[2025-05-25] MEDS: NEURONTIN 300 MG PO ×3 (07:42→21:02)
[2025-05-25] MEDS: METAMUCIL, KONSYL 1 PACKET PO (07:42)
--- NOTE | 2025-05-25 08:11 | PTCARENOTE ---
LP can not be done until after MRI. Pt aware.
--- NOTE | 2025-05-25 08:11 | W.PN.NEURO.1 ---
Addendum entered and electronically signed by Yandel Marr MD 05/25/25 09:18:
Studies reviewed.
I have personally examined the patient. I reviewed and agree with the GLUE JOINTER FEEDER's Note.
My addenda:
Awake, alert, interactive. No acute distress.
Speech intact.
Follows 2-step requests w/o difficulty. No tremor.
Extra-ocular movements grossly intact.
Facial movements full and symmetric. Hearing intact to normal conversational volume.
Normal UE movements bilaterally.
Neck: full ROM.
Chest: no dyspnea
Heart: no JVD
Ext: (-) Clubbing, (-) Cyanosis, (-) Edema
IMPRESSIONS/RECOMMENDATIONS:
Abrupt onset of Bilateral lower extremity weakness with sensory changes
Differential diagnosis now includes Guillain-Ramirez� syndrome complicated by T4 lesion which may represent a syrinx
Now no evidence of myasthenia gravis based on EMG study. Possible that EMG was performed too early to clearly delineate Guillain-Ramirez� syndrome (acute inflammatory demyelinating polyneuropathy)
Check MRI of brain and cervical spine
Check lumbar puncture
Consider restart of patient's immunoglobulin based on rapid worsening of symptoms
Not clear patient would benefit from start of methylprednisolone
Continue pain management
Watch for autonomic dysfunction
Consider initiation of pulmonary vital capacity monitoring
D/W patient
All questions answered.
Will continue to follow patient.
Original Note:
Documented by User: Gracie Mcmahon NP 05/25/25 08:55
Today's Communication / Plan
-
-obtain brain and cervical MRI as planned
-obtained LP as planned
-pending results of tests may need IVIG vs steroids
-PT/OT
-fall precautions
Neuro Assessment/Plan
Assessment
Patient is 64 years old male with history of hypertension, hyperlipidemia, gout, hypothyroidism, presented to [facility] on 05/22/2025 with sudden onset of lower extremity weakness and gait ataxia.
Abrupt onset of lower extremity weakness with gait ataxia and ptosis. Differential diagnosis includes inflammatory versus demyelinating, less likely infectious, neoplastic or vascular.
T-spine MRI w/wo erick�nonenhancing T4 1.2 cm T2 hyperintensity.
NCS/EMG(05/22/2025) mild chronic axonal sensory peripheral polyneuropathy.
Labs: Na-129.
Plan
-obtain brain and cervical MRI as planned
-obtained LP as planned
-pending results of tests may need IVIG vs steroids
-PT/OT
-fall precautions
All questions encouraged and answered, plan of care discussed with Dr. Marr, patient and nurse
Subjective/Objective
Subjective Data
Date of Service: May 25, 2025
Patient continues to have pain down his right leg and cannot lift it off the bed, continues to have left leg weakness but worsening. Notes pain was predominantly in left leg first then moved to his right leg. Has left leg pain with dorsiflexion.
Denies pain, numbness/tingling or weakness to upper extremities. Continues with left ptosis. Denies issues with speech or swallow, no neck weakness. Notes constipation.
Objective Data
Vital Signs
Temp Pulse Resp BP Pulse Ox
97.6 F 97 19 132/69 96
05/25/25 07:28 05/25/25 06:00 05/25/25 06:00 05/25/25 06:00 05/25/25 01:56
Lab Results
05/25/25 03:25
05/25/25 03:25
PT 14.1 Sec (11.4-14.6) 05/25/25 03:25
INR 1.06 05/25/25 03:25
Sodium 132 mmol/L (135-145) L 05/25/25 03:25
Potassium 5.0 mmol/L (3.5-5.1) 05/25/25 03:25
BUN 15 mg/dl (9-20) 05/25/25 03:25
Glucose 128 mg/dl (70-99) H 05/25/25 03:25
Calcium 9.2 mg/dl (8.4-10.2) 05/25/25 03:25
Vitamin B12 Cancelled 05/22/25 07:34
Patient Allergies
levofloxacin (From Levaquin) Allergy (Verified 05/22/25 22:37)
Nausea / Vomiting
metronidazole (From Flagyl) Allergy (Verified 05/22/25 22:37)
Nausea / Vomiting
Physical Exam
-
General: No Apparent Distress
Eyes: Other (ptosis left eye)
HEENT: Normocephalic and Anicteric
Neck: Full Range of Motion
Respiratory: No Dyspnea
Cardiac: No JVD
GI: Non-distended
Skin: Unremarkable
Extremities: No Clubbing, No Cyanosis and No Edema
Psych: Unremarkable
Extended Neurological Exam
Mood & Affect: Mood Unremarkable
Attention Span & Concentration: Awake, Alert, Interactive and No Difficulty with 2 Step Request
Memory: Unremarkable
Tremor: Hand Tremor Absent and Head Tremor Absent
Speech: Quality Unremarkable, Quantity Unremarkable and Rate of Production Unremarkable
Cranial Nerve II: Left Eye: Visual Ng Intact
Cranial Nerve II: Right Eye: Visual Ng Intact
Cranial Nerves III, IV, : Extraocular Movement: Ptosis on Left
Cranial Nerve VII: Facial Symmetry: Reduced (left eye)
Cranial Nerve VIII: Hearing: Unremarkable Hearing to Normal Conversational Volume
Cranial Nerves IX, X: Palate Movement: Palate Elevation Symmetric
Cranial Nerve XI: Shoulder Shrug: Unremarkable
Muscle Strength, Overall: Reduced Bilaterally (lower extremities, 3/5 to LLE, 2/5 to RLE)
Pronator Drift: No Drift in Upper Extremities
Deep Tendon Reflexes: 3+ (left patellar) and Absent (b/l UEs)
Coordination: Kvbtdh-[id number]-hythye Testing Unremarkable and Reaches for Objects without Difficulty
Data Reviewed
-
MRI Head: Ordered
MRI Cervical Spine: Ordered
MRI Thoracic Spine: Report Reviewed and Image Reviewed
MRI Lumbar Spine: Report Reviewed and Image Reviewed
Medical Test Reports: Report Reviewed
Labs: Report Reviewed
Reviewed with: Physician and Patient
Old Records: Summarized

Documented by User: Yandel Marr MD 05/25/25 09:09
Past History
Past History
ED Past Medical History: HTN, Hypercholesterolemia, NIDDM and Other (GOUT, C. difficile, hepatitis C, hemochromatosis, gout, iron deficiency anemia)
ED Past Surgical History: Other (Liver biopsy, left first toe surgical debridement secondary to gout)
Social History
Tobacco: Non-smoker
Alcohol: None
Drug: None
Personal:
Living: with family
Employment: Employed
Family History
Family History: Other (Reviewed and noncontributory)
Medications
-
Medications:
Generic Name Dose Route Start Last Admin
Trade Name Freq PRN Reason Stop Dose Admin
Acetaminophen 650 mg 05/22/25 11:05 05/23/25 22:20
Acetaminophen 325 Mg Tablet PO 06/19/25 11:04 650 mg
Q4HPRN PRN Administration
mild pain/ANDERS/temp> 100.4F
Allopurinol 600 mg 05/22/25 22:00 05/24/25 21:39
Allopurinol 300 Mg Tablet PO 06/19/25 21:59 600 mg
HS TRAVON Administration
Bisacodyl 10 mg 05/22/25 11:05
Bisacodyl 10 Mg Rectal Suppository RECTAL 06/19/25 11:04
[id number] PRN
constipation
Enoxaparin Sodium 40 mg 05/22/25 18:00 05/24/25 17:52
Enoxaparin Sodium 40 Mg/0.4 Ml Syringe SC 06/19/25 17:59 40 mg
QPM TRAVON Administration
Gabapentin 300 mg 05/23/25 18:00 05/25/25 07:42
Gabapentin 300 Mg Capsule PO 06/20/25 17:59 300 mg
TID TRAVON Administration
Hydromorphone HCl 0.5 mg 05/23/25 13:58 05/24/25 11:44
Hydromorphone 0.5 Mg/0.5 Ml Syringe IV 06/06/25 13:57 0.5 mg
Q4HPRN PRN Administration
severe pain
Immune Globulin 30 grams in 300 mls @ 0 mls/hr 05/22/25 12:00 05/23/25 13:04
Gammagard IV 300 mls
On Hold: 05/24/25 08:16 DAILY@1200 TRAVON Administration
Protocol
Per Protocol
Sodium Chloride 1,000 mls @ 85 mls/hr 05/24/25 09:30 05/24/25 21:39
Nss IV 1,000 mls
.[id number] TRAVON Administration
Levothyroxine Sodium 100 mcg 05/25/25 06:00 05/25/25 07:17
Levothyroxine 100 Mcg Tablet PO 06/22/25 05:59 100 mcg
DAILY@0600 TRAVON Administration
Lidocaine 1 patch 05/24/25 13:45 05/25/25 07:41
Lidocaine 4% Topical Patch TOPICAL 06/21/25 13:44 1 patch
DAILY TRAVON Administration
Protocol
Lidocaine 1 patch 05/24/25 13:45 05/25/25 07:42
Lidocaine 4% Topical Patch TOPICAL 06/21/25 13:44 1 patch
DAILY TRAVON Administration
Protocol
Lisinopril 20 mg 05/22/25 22:00 05/24/25 21:39
Lisinopril 20 Mg Tablet PO 06/19/25 21:59 20 mg
HS TRAVON Administration
Lorazepam 1 mg 05/24/25 14:51
Lorazepam 1 Mg Tablet PO
ONCE PRN
GIVE 1 HR BEFORE MRI
Multivitamins Therapeutic 1 tablet 05/23/25 08:00 05/25/25 07:42
Multivitamin Tablet PO 06/20/25 07:59 1 tablet
DAILY TRAVON Administration
Oxycodone/Acetaminophen 1 tablet 05/24/25 11:45 05/25/25 03:33
Oxycodone 5 Mg/Apap 325 Mg (Percocet) PO 06/07/25 11:44 1 tablet
Q4HPRN PRN Administration
moderate pain
Patch Removal 0 patch 05/24/25 20:00 05/24/25 20:03
Remove Lidocaine Patch REMOVE 06/21/25 19:59 1 patch
DAILY@1999 TRAVON Administration
Patch Removal 0 patch 05/24/25 20:00 05/24/25 20:03
Remove Lidocaine Patch REMOVE 06/21/25 19:59 1 patch
DAILY@1999 TRAVON Administration
Polyethylene Glycol 17 grams 05/22/25 11:05 05/24/25 16:34
Polyethylene Glycol Powder 17 Grams Packet PO 06/19/25 11:04 17 grams
DAILYPRN PRN Administration
constipation
Psyllium Hydrophilic Mucilloid 1 packet 05/23/25 08:00 05/25/25 07:42
Psyllium Packet PO 06/20/25 07:59 1 packet
DAILY TRAVON Administration
Senna/Docusate Sodium 1 tablet 05/22/25 11:05 05/24/25 08:49
Docusate W/Senna (Rima-Colace) Tablet PO 06/19/25 11:04 1 tablet
BIDPRN PRN Administration
constipation
Sodium Chloride 0 flush 05/22/25 12:00
Sodium Chloride 0.9% (Flush) Syringe IV 06/19/25 11:59
PER PROTOCOL TRAVON
--- NOTE | 2025-05-25 09:01 | W.PN.HOSP.TC ---
Today's Communication/Plan
-
Brain MRI
Cervical spine MRI
West Nile virus serology
PT/OT
LP
Assessment / Plan
Assessment / Plan
Gen-AAOx3, NAD
HEENT-NC, AT, anicteric, clear oral mm
Neck-supple
CV-reg, no M, +S1/S2
Lungs-clear B/L
Abd-soft, NT, ND
Ext-no edema
Musculoskeletal-no cyanosis, clubbing
Skin-warm and dry
Neuro-bilateral lower extremity flaccid paralysis
Psych-calm, cooperative
Acute bilateral lower extremity weakness -bilateral lower extremity weakness significantly worse compared to day of admission 05/22. He actually drove himself into the hospital but states now he is too weak to stand or bear weight. Cannot move his
legs off the bed.
Unclear etiology-->Differential diagnosis includes transverse myelitis versus inflammatory or demyelinating myelopathy versus myasthenia gravis versus Guillain-Ramirez�
Reviewed MRI thoracic and lumbar spine
Plan for MRI brain and cervical spine
Plan for LP
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
Checking acetylcholine receptor antibody
Although patient denies mosquito bites will check West Nile virus IgM for serum and CSF. He does wear shorts to work with exposed skin.
Hyperlipidemia:
Continue to hold statin. CPK was normal.
Essential hypertension:
Continue lisinopril 20 mg p.o. daily
Monitor blood pressure and adjust medications accordingly
Hypothyroidism: TSH elevated, 7.5. Levothyroxine dose increased from 75 to 100 mcg daily. Check TSH in 4 weeks.
Gout with gouty tophi:
Continue allopurinol-he is on 600 mg every evening.
Hold steroids. 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
Continue pain medications
Bilateral knee x-rays consistent with osteoarthritis.
Peripheral neuropathy:
Started on gabapentin and increase as needed
Obesity due to excess calories
PT/OT
DVT prophylaxis:
Lovenox SQ
Full code
Anticipated Discharge: > 48 hours
Subjective/Interval History
-
Date of Service: May 25, 2025
Patient seen and examined. Complaining of bilateral lower extremity weakness, pain.
Objective Data
-
Labs:
Laboratory Results
05/25/25
03:25
WBC 9.6
Hgb 13.6
Hct 39.0
Plt Count 240
PT 14.1
INR 1.06
Sodium 132 L
Potassium 5.0
Chloride 99
Carbon Dioxide 26
BUN 15
Creatinine 0.9
Glucose 128 H
Calcium 9.2
Vital Signs:
Vital Signs
Temp Pulse Resp BP Pulse Ox
97.6 F 101 20 151/79 96
05/25/25 07:28 05/25/25 08:00 05/25/25 08:00 05/25/25 08:00 05/25/25 01:56
I&O
05/24/25 05/25/25 05/26/25
06:59 06:59 06:59
Intake Total 1400 / 1400
Output Total 710 / 710 1750 / 1750
Balance -710 / -710 -350 / -350
Review of Systems
-
History Source: Patient
All other systems: Reviewed and negative
[2025-05-25] MEDS: NSS 1000 IV (09:19)
[2025-05-25 13:02] LABS: Lyme Antibody Screen, EIA Negative (Negative)
[2025-05-25 13:02] LABS: Lyme Antibody Screen, EIA Negative (Negative)
--- NOTE | 2025-05-25 13:10 | PTCARENOTE ---
Pt slept most of the morning. awaiting MRI and then LP
[2025-05-25] MEDS: ATIVAN 1 MG PO (15:01)
--- NOTE | 2025-05-25 15:09 | PTCARENOTE ---
PT for MRI at 4 pm IR notified and states LP will be done tomorow
--- NOTE | 2025-05-25 15:46 | CM ---
Following up on Patient. RN stated that patient is going to MRI today per Neurology to check for differential diagnosis now includes Guillain-Ramirez� syndrome due to abrupt onset of Bilateral lower extremity weakness with sensory changes.
Initial Assessment stated that patient is completely independent at home with daughter in multi-level home.
PLAN: TBD Anticipate SNF vs. Home PT
[2025-05-25] MEDS: LOVENOX 40 MG SC (17:36)
[2025-05-25] MEDS: SENOKOT-S 1 TABLET PO ×2 (17:36→21:02)
[2025-05-25] MEDS: REMOVE LIDOCAINE PATCH REMOVE ×2 (19:49)
[2025-05-25 19:50] LABS: Copper, Serum 95.0 ug/dL (70.0-140.0)
[2025-05-25] MEDS: ZESTRIL 20 MG PO (21:03)
[2025-05-25] MEDS: ZYLOPRIM 600 MG PO (21:03)
[2025-05-26] VITALS (27 sets, daily range): BP systolic 100–147; BP diastolic 60–99; PULSE 96–97; O2SAT 96–97
--- NOTE | 2025-05-26 00:50 | PTCARENOTE ---
assumed care of patient. pt is AAOx3, sleeping on and off. VSS. 94% RA. pt states his pain is in his right knee at this time. medicated with PRN Percocet per MAR with positive relief. able to use urinal by self without issues. care ongoing.
[2025-05-26] MEDS: SYNTHROID 100 MCG PO (05:36)
[2025-05-26] MEDS: THERAGRAN 1 TABLET PO (07:21)
[2025-05-26] MEDS: LIDOCAINE 4% PATCH TOPICAL ×2 (07:21)
[2025-05-26] MEDS: MIRALAX 17 GRAMS PO (07:21)
[2025-05-26] MEDS: PERCOCET 5/325 1 TABLET PO ×3 (07:21→20:37)
[2025-05-26] MEDS: SENOKOT-S 1 TABLET PO ×2 (07:22→20:37)
[2025-05-26] MEDS: NEURONTIN 300 MG PO ×3 (07:22→20:37)
--- NOTE | 2025-05-26 07:40 | PTCARENOTE ---
Pt AAOx3, no distress , pain R leg. To IR via stretcher for LP.
--- NOTE | 2025-05-26 09:36 | PTCARENOTE ---
Pt return from IR to lie flat till 10 am. Pt in good spirits
--- NOTE | 2025-05-26 10:06 | W.PN.NEURO.1 ---
Today's Communication / Plan
-
Restart IVIG due to the possibility of Guillain-Ramirez� syndrome, goal of 5 treatments, patient has currently received 2
Neuro Assessment/Plan
Assessment
Patient is 64 years old male with history of hypertension, hyperlipidemia, gout, hypothyroidism, presented to [facility] on 05/22/2025 with sudden onset of lower extremity weakness and gait ataxia.
Abrupt onset of lower extremity weakness with gait ataxia and ptosis. Differential diagnosis includes Guillain-Ramirez� syndrome with incidental finding at T4
T-spine MRI w/wo erick�nonenhancing T4 1.2 cm T2 hyperintensity.
NCS/EMG(05/22/2025) mild chronic axonal sensory peripheral polyneuropathy.
Labs: Na-129.
Plan
Restart IVIG due to the possibility of Guillain-Ramirez� syndrome, goal of 5 treatments, patient has currently received 2
Await lumbar puncture results
Continue PT/OT
Will follow
Subjective/Objective
Subjective Data
Date of Service: May 26, 2025
Patient reports no significant change in sensation or strength. No involvement of upper extremities. Underwent lumbar puncture recently.
Objective Data
Vital Signs
Temp Pulse Resp BP Pulse Ox
36.7 C 100 12 138/81 97
05/26/25 07:40 05/26/25 09:09 05/26/25 09:09 05/26/25 09:09 05/26/25 09:00
Lab Results
05/25/25 03:25
05/25/25 03:25
PT 14.1 Sec (11.4-14.6) 05/25/25 03:25
INR 1.06 05/25/25 03:25
Sodium 132 mmol/L (135-145) L 05/25/25 03:25
Potassium 5.0 mmol/L (3.5-5.1) 05/25/25 03:25
BUN 15 mg/dl (9-20) 05/25/25 03:25
Glucose 128 mg/dl (70-99) H 05/25/25 03:25
Calcium 9.2 mg/dl (8.4-10.2) 05/25/25 03:25
Vitamin B12 Cancelled 05/22/25 07:34
Patient Allergies
levofloxacin (From Levaquin) Allergy (Verified 05/22/25 22:37)
Nausea / Vomiting
metronidazole (From Flagyl) Allergy (Verified 05/22/25 22:37)
Nausea / Vomiting
Review of Systems
-
History Source: Patient
All other systems: Reviewed and negative
EENT: Negative Swallowing Difficulty
Respiratory: Negative Trouble Breathing
Neuro: Negative Headache
Physical Exam
-
General: No Apparent Distress
Eyes: Other (ptosis left eye)
HEENT: Anicteric
Neck: Full Range of Motion
Respiratory: No Dyspnea
Cardiac: No JVD
GI: Non-distended
Skin: Unremarkable
Extremities: No Clubbing, No Cyanosis and No Edema
Psych: Unremarkable
Extended Neurological Exam
Mood & Affect: Mood Unremarkable and Affect Unremarkable
Attention Span & Concentration: Awake, Alert, Interactive and No Difficulty with 2 Step Request
Memory: Unremarkable
Tremor: Hand Tremor Absent and Head Tremor Absent
Speech: Quality Unremarkable, Quantity Unremarkable and Rate of Production Unremarkable
Cranial Nerve II: Left Eye: Pupillary Size Unremarkable and Visual Ng Grossly Intact
Cranial Nerve II: Right Eye: Pupillary Size Unremarkable and Visual Ng Grossly Intact
Cranial Nerves III, IV, : Extraocular Movement: Ptosis on Left and Grossly Intact; Negative Ptosis on Right
Cranial Nerve VII: Facial Symmetry: Normal Facial Symmetry
Cranial Nerve VIII: Hearing: Unremarkable Hearing to Normal Conversational Volume
Cranial Nerve XI: Shoulder Shrug: Unremarkable
Muscle Strength, Overall: Reduced Bilaterally (lower extremities, 4+/5 to LLE, 4/5 to RLE)
Muscle Bulk & Tone: Tone Unremarkable
Pronator Drift: No Drift in Upper Extremities
Coordination: Wxznol-[id number] Testing Unremarkable and Reaches for Objects without Difficulty
Data Reviewed
-
MRI Head: Report Reviewed
MRI Cervical Spine: Report Reviewed
Labs: Report Reviewed
Reviewed with: Physician, Nurse and Patient
Old Records: Summarized
Past History
Past History
ED Past Medical History: HTN, Hypercholesterolemia, NIDDM and Other (GOUT, C. difficile, hepatitis C, hemochromatosis, gout, iron deficiency anemia)
ED Past Surgical History: Other (Liver biopsy, left first toe surgical debridement secondary to gout)
Social History
Tobacco: Non-smoker
Alcohol: None
Drug: None
Personal:
Living: with family
Employment: Employed
Family History
Family History: Other (Reviewed and noncontributory)
Medications
-
Medications:
Generic Name Dose Route Start Last Admin
Trade Name Freq PRN Reason Stop Dose Admin
Acetaminophen 650 mg 05/22/25 11:05 05/23/25 22:20
Acetaminophen 325 Mg Tablet PO 06/19/25 11:04 650 mg
Q4HPRN PRN Administration
mild pain/ANDERS/temp> 100.4F
Allopurinol 600 mg 05/22/25 22:00 05/25/25 21:03
Allopurinol 300 Mg Tablet PO 06/19/25 21:59 600 mg
HS TRAVON Administration
Bisacodyl 10 mg 05/22/25 11:05
Bisacodyl 10 Mg Rectal Suppository RECTAL 06/19/25 11:04
[id number] PRN
constipation
Enoxaparin Sodium 40 mg 05/22/25 18:00 05/25/25 17:36
Enoxaparin Sodium 40 Mg/0.4 Ml Syringe SC 06/19/25 17:59 40 mg
QPM TRAVON Administration
Gabapentin 300 mg 05/23/25 18:00 05/26/25 07:22
Gabapentin 300 Mg Capsule PO 06/20/25 17:59 300 mg
TID TRAVON Administration
Hydromorphone HCl 0.5 mg 05/23/25 13:58 05/24/25 11:44
Hydromorphone 0.5 Mg/0.5 Ml Syringe IV 06/06/25 13:57 0.5 mg
Q4HPRN PRN Administration
severe pain
Immune Globulin 30 grams in 300 mls @ 0 mls/hr 05/22/25 12:00 05/23/25 13:04
Gammagard IV 05/28/25 12:01 300 mls
DAILY@1200 TRAVON Administration
Protocol
Per Protocol
Levothyroxine Sodium 100 mcg 05/25/25 06:00 05/26/25 05:36
Levothyroxine 100 Mcg Tablet PO 06/22/25 05:59 100 mcg
DAILY@0600 TRAVON Administration
Lidocaine 1 patch 05/24/25 13:45 05/26/25 07:21
Lidocaine 4% Topical Patch TOPICAL 06/21/25 13:44 Not Given
DAILY TRAVON
Protocol
Lidocaine 1 patch 05/24/25 13:45 05/26/25 07:21
Lidocaine 4% Topical Patch TOPICAL 06/21/25 13:44 Not Given
DAILY TRAVON
Protocol
Lisinopril 20 mg 05/22/25 22:00 05/25/25 21:03
Lisinopril 20 Mg Tablet PO 06/19/25 21:59 20 mg
HS TRAVON Administration
Multivitamins Therapeutic 1 tablet 05/23/25 08:00 05/26/25 07:21
Multivitamin Tablet PO 06/20/25 07:59 1 tablet
DAILY TRAVON Administration
Oxycodone/Acetaminophen 1 tablet 05/24/25 11:45 05/26/25 07:21
Oxycodone 5 Mg/Apap 325 Mg (Percocet) PO 06/07/25 11:44 1 tablet
Q4HPRN PRN Administration
moderate pain
Patch Removal 0 patch 05/24/25 20:00 05/25/25 19:49
Remove Lidocaine Patch REMOVE 06/21/25 19:59 Not Given
DAILY@1999 TRAVON
Patch Removal 0 patch 05/24/25 20:00 05/25/25 19:49
Remove Lidocaine Patch REMOVE 06/21/25 19:59 Not Given
DAILY@1999 TRAVON
Polyethylene Glycol 17 grams 05/25/25 09:10 05/26/25 07:21
Polyethylene Glycol Powder 17 Grams Packet PO 06/22/25 09:09 17 grams
DAILY TRAVON Administration
Senna/Docusate Sodium 1 tablet 05/25/25 09:15 05/26/25 07:22
Docusate W/Senna (Rima-Colace) Tablet PO 06/22/25 09:14 1 tablet
BID TRAVON Administration
Sodium Chloride 0 flush 05/22/25 12:00
Sodium Chloride 0.9% (Flush) Syringe IV 06/19/25 11:59
PER PROTOCOL TRAVON
[2025-05-26 10:27] LABS: CSF Color Colorless
[2025-05-26 10:28] LABS: Red Cell Count/CSF 18 mm^3; White Cell Count/CSF 3 mm^3 (0-5)
[2025-05-26 10:41] LABS: CSF Color Colorless; CSF Tube # Clarity Clear; Red Cell Count/CSF 19 mm^3; White Blood Cell Count/CSF 2 mm^3 (0-5)
--- NOTE | 2025-05-26 11:17 | PTCARENOTE ---
Pt OOB with PT.
[2025-05-26] MEDS: GAMMAGARD 300 IV (12:41)
--- NOTE | 2025-05-26 13:16 | W.PN.HOSP.TC ---
Today's Communication/Plan
-
Bowel regimen
IVIG
Await special studies
Assessment / Plan
Assessment / Plan
Gen-AAOx3, NAD
HEENT-NC, AT, anicteric, clear oral mm
Neck-supple
CV-reg, no M, +S1/S2
Lungs-clear B/L
Abd-soft, NT, ND
Ext-no edema
Musculoskeletal-no cyanosis, clubbing
Skin-warm and dry
Neuro-bilateral lower extremity flaccid paralysis
Psych-calm, cooperative
Acute bilateral lower extremity weakness -bilateral lower extremity weakness significantly worse compared to day of admission 05/22. He actually drove himself into the hospital but states now he is too weak to stand or bear weight. Cannot move his
legs off the bed.
Unclear etiology-->Differential diagnosis includes transverse myelitis versus inflammatory or demyelinating myelopathy versus myasthenia gravis versus Guillain-Ramirez�
Thoracic spine MRI shows small focus of T2 hyperintense signal in the thoracic cord at T4 level measuring 1.2 cm in length without enhancement. Linear signal to the right of midline and not significantly expansile. Nonspecific and could be
secondary to demyelination or other inflammatory/infectious etiology for transverse myelitis.
Brain MRI without acute disease. Cervical spine MRI shows degenerative changes without alteration or enhancement of the cervical spinal cord.
LP done 05/26, report pending. Special studies pending.
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
Checking acetylcholine receptor antibody
Although patient denies mosquito bites will check West Nile virus IgM for serum and CSF. He does wear shorts to work with exposed skin.
Clinically improving with improved lower extremity strength. Still has paresthesias of both soles.
Neurology wants to complete 5-day course of IVIG, today is day 3.
Hyponatremia -stable at 132. Monitor for now.
Constipation -bowel regimen ordered.
Hyperlipidemia:
Continue to hold statin. CPK was normal.
Essential hypertension:
Continue lisinopril 20 mg p.o. daily
Monitor blood pressure and adjust medications accordingly
Hypothyroidism: TSH elevated, 7.5. Levothyroxine dose increased from 75 to 100 mcg daily. Check TSH in 4 weeks.
Gout with gouty tophi:
Continue allopurinol-he is on 600 mg every evening.
Hold steroids. 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
Continue pain medications
Bilateral knee x-rays consistent with osteoarthritis.
Peripheral neuropathy:
Started on gabapentin and increase as needed
Obesity due to excess calories
PT/OT
DVT prophylaxis:
Lovenox SQ
Full code
Dispo -anticipate acute rehab on discharge when medically stable. Physiatry consulted.
Anticipated Discharge: > 48 hours
Subjective/Interval History
-
Date of Service: May 26, 2025
Patient seen and examined, states his legs are feeling stronger. Still with numbness on the soles of both feet.
Objective Data
-
Vital Signs:
Vital Signs
Temp Pulse Resp BP Pulse Ox
98.1 F 109 18 140/86 97
05/26/25 07:40 05/26/25 12:49 05/26/25 10:00 05/26/25 12:49 05/26/25 10:00
I&O
05/25/25 05/26/25 05/27/25
06:59 06:59 06:59
Intake Total 1400 / 1400 940 / 940
Output Total 1750 / 1750 1900 / 1900
Balance -350 / -350 -960 / -960
Review of Systems
-
History Source: Patient
All other systems: Reviewed and negative
[2025-05-26] MEDS: DULCOLAX 10 MG PO (13:45)
[2025-05-26 15:38] LABS: Syphilis/T. pallidum Ab Reflex Positive (Negative)
[2025-05-26 16:23] LABS: RPR, Progressive Weakly Reactive (NonReactive)
--- NOTE | 2025-05-26 17:33 | CM ---
Addendum entered by Krish Alvarez 05/26/25 17:39:
CAMDEN Rutherford met the patient, , and daughter to discuss what PT/OT recommended. Explained the level of rehab and also the insurance process since he has [employer] as a primary. Family and patient understands.
Case Management would need to go for authorization when he is close to being ready for discharge. Patient is asking for [facility] first then [facility]. Referral made to both to follow.
Original Note:
Following up on Patient. Patient still be evaluated for what is suspected of a neurological disease.
PLAN: Home PT vs. SNF
--- NOTE | 2025-05-26 17:50 | PTCARENOTE ---
Pt sat OOB for 4 hrs today, now having pain in r elbow
[2025-05-26] MEDS: ZYLOPRIM 600 MG PO (20:37)
[2025-05-26] MEDS: ZESTRIL 20 MG PO (20:38)
[2025-05-27] VITALS (16 sets, daily range): BP systolic 113–150; BP diastolic 75–97; PULSE 107–108; O2SAT 96
--- NOTE | 2025-05-27 00:12 | PTCARENOTE ---
assumed care of patient. pt is AAOx3, able to make needs known. pulse ox 99% RA. pt with complaints of pain to right knee and inside of right elbow. medication per MAR with positive effect. using urinal at bedside. care ongoing.
[2025-05-27 02:04] LABS: ANA, IgG Reflex to HEp-2 None Detected (None Detected)
[2025-05-27] MEDS: SYNTHROID 100 MCG PO (04:46)
[2025-05-27] MEDS: PERCOCET 5/325 1 TABLET PO ×4 (04:46→21:14)
--- NOTE | 2025-05-27 04:58 | PTCARENOTE ---
pt woke up this morning having a lot of pain in the right elbow. pt states the pain is at the joint and it feels like it is numb/tingling. medicated with pain medication per MAR.
[2025-05-27] MEDS: THERAGRAN 1 TABLET PO (07:41)
[2025-05-27] MEDS: NEURONTIN 300 MG PO ×3 (07:41→21:14)
[2025-05-27] MEDS: SENOKOT-S 1 TABLET PO ×2 (07:41→21:16)
[2025-05-27] MEDS: MIRALAX 17 GRAMS PO (07:42)
--- NOTE | 2025-05-27 08:57 | PTCARENOTE ---
Patient received from hot man. Patient resting comfortably in bed. AAO, VSS. No events noted overnight. Continues with complaints of pain in right leg and now right elbow most after receiving IVIG, hospitalist made aware. Able to move arm
but can not bend elbow. No testing scheduled at this time. Call silverman in reach.
--- NOTE | 2025-05-27 11:56 | CM ---
Following up on Patient. Medical Notes state that continuing IVIG and waiting on special studies. Referrals have been made to two Acute Rehab. Case Management to follow for discharge.
PLAN: Acute Rehab.
[2025-05-27 12:13] LABS: Vitamin B1, Whole Blood 228 nmol/L (70-180)
--- NOTE | 2025-05-27 12:22 | W.PN.HOSP.TC ---
Today's Communication/Plan
-
Prednisone
Bowel regimen
Continue PT/OT
IVIG
Assessment / Plan
Assessment / Plan
Gen-AAOx3, NAD
HEENT-NC, AT, anicteric, clear oral mm
Neck-supple
CV-reg, no M, +S1/S2
Lungs-clear B/L
Abd-soft, NT, ND
Ext-no edema
Musculoskeletal-no cyanosis, clubbing, right elbow with mild erythema and tenderness, limited range of motion due to pain.
Skin-warm and dry
Neuro-bilateral lower extremity flaccid paralysis
Psych-calm, cooperative
Acute bilateral lower extremity weakness -bilateral lower extremity weakness significantly worse compared to day of admission 05/22. He actually drove himself into the hospital but states now he is too weak to stand or bear weight. Cannot move his
legs off the bed.
Unclear etiology-->Differential diagnosis includes transverse myelitis versus inflammatory or demyelinating myelopathy versus myasthenia gravis versus Guillain-Ramirez�
Thoracic spine MRI shows small focus of T2 hyperintense signal in the thoracic cord at T4 level measuring 1.2 cm in length without enhancement. Linear signal to the right of midline and not significantly expansile. Nonspecific and could be
secondary to demyelination or other inflammatory/infectious etiology for transverse myelitis.
Brain MRI without acute disease. Cervical spine MRI shows degenerative changes without alteration or enhancement of the cervical spinal cord.
LP done 05/26, report pending. Special studies pending.
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
Although patient denies mosquito bites will check West Nile virus IgM for serum and CSF. He does wear shorts to work with exposed skin.
Clinically improving with improved lower extremity strength. Still has paresthesias of both soles.
Neurology wants to complete 5-day course of IVIG, today is day 4.
Serum copper level normal. Zinc level pending. HIV negative. Acetylcholine receptor antibody 0. Syphilis serology positive, RPR weakly reactive, treponemal test pending.
Hyponatremia -stable at 132. Monitor for now.
Constipation -bowel regimen ordered. Add Dulcolax suppository. Continue docusate, Senokot, MiraLAX.
Hyperlipidemia:
Continue to hold statin. CPK was normal.
Essential hypertension:
Continue lisinopril 20 mg p.o. daily
Monitor blood pressure and adjust medications accordingly
Hypothyroidism: TSH elevated, 7.5. Levothyroxine dose increased from 75 to 100 mcg daily. Check TSH in 4 weeks.
Acute right elbow gout flare -presumed diagnosis given known history of gout. Doubt other etiologies such as septic arthritis.
Continue allopurinol-he is on 600 mg every evening.
Patient states he was previously on colchicine but caused GI upset and his dipper fish transitioned him a few weeks ago from colchicine to low-dose prednisone 5 mg daily.
Prednisone was not resumed on admission but at this point we will use prednisone 40 mg daily for right elbow gout flare.
Peripheral neuropathy:
Started on gabapentin and increase as needed
Obesity due to excess calories
PT/OT
DVT prophylaxis:
Lovenox SQ
Full code
Dispo -anticipate acute rehab on discharge when medically stable. Physiatry consulted.
Anticipated Discharge: > 48 hours
Subjective/Interval History
-
Date of Service: May 27, 2025
Patient seen and examined, complaining of severe right elbow pain since yesterday.
Objective Data
-
Vital Signs:
Vital Signs
Temp Pulse Resp BP Pulse Ox
97.6 F 97 11 113/75 99
05/27/25 07:25 05/27/25 06:00 05/27/25 06:00 05/27/25 06:00 05/26/25 20:47
I&O
05/26/25 05/27/25 05/28/25
06:59 06:59 06:59
Intake Total 940 / 940 300 / 300
Output Total 1900 / 1900 1250 / 1250
Balance -960 / -960 -950 / -950
Review of Systems
-
History Source: Patient
All other systems: Reviewed and negative
[2025-05-27] MEDS: GAMMAGARD 300 IV (12:41)
[2025-05-27] MEDS: DELTASONE 40 MG PO (12:43)
[2025-05-27 13:14] LABS: Albumin 4.13 g/dL (3.75-5.01); SPEP IFE Reflex Not Done; Total Protein-Electrophoresis 7.6 g/dL (6.3-8.2)
[2025-05-27 14:08] LABS: Gamma-Tocopherol 1.4 mg/L (0.0-6.0)
--- NOTE | 2025-05-27 14:26 | W.PN.NEURO.1 ---
Addendum entered and electronically signed by Dalton Verduzco MD 05/28/25 16:25:
I have discussed the assessment and the management plan with nurse practitioner Joan Bazan. The patient was also examined by me. The patient feels stronger and the plan is to continue with IVIG for a total of 5 doses. The plan is to arrange
for an inpatient acute rehab for the patient and to follow-up in neurology clinic in 3 weeks after discharge. 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
Original Note:
Today's Communication / Plan
-
.
Neuro Assessment/Plan
Assessment
Patient is 64 years old male with history of hypertension, hyperlipidemia, gout, hypothyroidism, presented to [facility] on 05/22/2025 with sudden onset of lower extremity weakness and gait ataxia.
Abrupt onset of lower extremity weakness with gait ataxia and ptosis. Differential diagnosis includes Guillain-Ramirez� syndrome with incidental finding at T4
T-spine MRI w/wo erick�nonenhancing T4 1.2 cm T2 hyperintensity.
NCS/EMG(05/22/2025) mild chronic axonal sensory peripheral polyneuropathy.
CSF protein 73.
Labs: Na-129.
Plan
-Continue IVIG due to the possibility of Guillain-Ramirez� syndrome and patient has improved on this treatment, goal of 5 treatments, today is day 4/5.
-Continue PT/OT
-DVT prophylaxis.
Will follow
Subjective/Objective
Subjective Data
Date of Service: May 27, 2025
No acute events overnight. Patient reports that he feels mildly improved today, he was able to walk to the bathroom for the first time in days.
Objective Data
Vital Signs
Temp Pulse Resp BP Pulse Ox
97.6 F 97 11 113/75 99
05/27/25 07:25 05/27/25 06:00 05/27/25 06:00 05/27/25 06:00 05/26/25 20:47
Lab Results
05/25/25 03:25
05/25/25 03:25
PT 14.1 Sec (11.4-14.6) 05/25/25 03:25
INR 1.06 05/25/25 03:25
Sodium 132 mmol/L (135-145) L 05/25/25 03:25
Potassium 5.0 mmol/L (3.5-5.1) 05/25/25 03:25
BUN 15 mg/dl (9-20) 05/25/25 03:25
Glucose 128 mg/dl (70-99) H 05/25/25 03:25
Calcium 9.2 mg/dl (8.4-10.2) 05/25/25 03:25
Whole Bld Vitamin B1 228 nmol/L (70-180) H 05/23/25 14:03
Vitamin B12 Cancelled 05/22/25 07:34
Patient Allergies
levofloxacin (From Levaquin) Allergy (Verified 05/22/25 22:37)
Nausea / Vomiting
metronidazole (From Flagyl) Allergy (Verified 05/22/25 22:37)
Nausea / Vomiting
Physical Exam
-
General: Well Developed, Well Nourished and No Apparent Distress
Respiratory: No Dyspnea
GI: Non-distended
Extended Neurological Exam
Mood & Affect: Mood Unremarkable and Affect Unremarkable
Attention Span & Concentration: Awake, Alert and Interactive
Memory: Unremarkable and Able to Recall
Tremor: Hand Tremor Absent and Head Tremor Absent
Involuntary Movement: None
Speech: Quality Unremarkable, Quantity Unremarkable and Rate of Production Unremarkable
Muscle Strength, Overall: Reduced Bilaterally (bilateral lower extremities 4/5) and Full in Upper Extremities
Pronator Drift: No Drift in Upper Extremities
Medications
-
Active Medications
Generic Name Dose Route Start Last Admin
Trade Name Freq PRN Reason Stop Dose Admin
Acetaminophen 650 mg 05/22/25 11:05 05/23/25 22:20
Acetaminophen 325 Mg Tablet PO 06/19/25 11:04 650 mg
Q4HPRN PRN Administration
mild pain/ANDERS/temp> 100.4F
Allopurinol 600 mg 05/22/25 22:00 05/26/25 20:37
Allopurinol 300 Mg Tablet PO 06/19/25 21:59 600 mg
HS TRAVON Administration
Bisacodyl 10 mg 05/22/25 11:05
Bisacodyl 10 Mg Rectal Suppository RECTAL 06/19/25 11:04
[id number] PRN
constipation
Enoxaparin Sodium 40 mg 05/27/25 18:00
Enoxaparin Sodium 40 Mg/0.4 Ml Syringe SC 06/24/25 17:59
QPM TRAVON
Gabapentin 300 mg 05/23/25 18:00 05/27/25 07:41
Gabapentin 300 Mg Capsule PO 06/20/25 17:59 300 mg
TID TRAVON Administration
Hydromorphone HCl 0.5 mg 05/23/25 13:58 05/24/25 11:44
Hydromorphone 0.5 Mg/0.5 Ml Syringe IV 06/06/25 13:57 0.5 mg
Q4HPRN PRN Administration
severe pain
Immune Globulin 30 grams in 300 mls @ 0 mls/hr 05/22/25 12:00 05/27/25 12:41
Gammagard IV 05/28/25 12:01 300 mls
DAILY@1200 TRAVON Administration
Protocol
Per Protocol
Levothyroxine Sodium 100 mcg 05/25/25 06:00 05/27/25 04:46
Levothyroxine 100 Mcg Tablet PO 06/22/25 05:59 100 mcg
DAILY@0600 TRAVON Administration
Lisinopril 20 mg 05/22/25 22:00 05/26/25 20:38
Lisinopril 20 Mg Tablet PO 06/19/25 21:59 20 mg
HS TRAVON Administration
Multivitamins Therapeutic 1 tablet 05/23/25 08:00 05/27/25 07:41
Multivitamin Tablet PO 06/20/25 07:59 1 tablet
DAILY TRAVON Administration
Oxycodone/Acetaminophen 1 tablet 05/24/25 11:45 05/27/25 10:45
Oxycodone 5 Mg/Apap 325 Mg (Percocet) PO 06/07/25 11:44 1 tablet
Q4HPRN PRN Administration
moderate pain
Polyethylene Glycol 17 grams 05/25/25 09:10 05/27/25 07:42
Polyethylene Glycol Powder 17 Grams Packet PO 06/22/25 09:09 17 grams
DAILY TRAVON Administration
Prednisone 40 mg 05/27/25 12:00 05/27/25 12:43
Prednisone 20 Mg Tablet PO 06/24/25 11:59 40 mg
DAILY TRAVON Administration
Senna/Docusate Sodium 1 tablet 05/25/25 09:15 05/27/25 07:41
Docusate W/Senna (Rima-Colace) Tablet PO 06/22/25 09:14 1 tablet
BID TRAVON Administration
Sodium Chloride 0 flush 05/22/25 12:00
Sodium Chloride 0.9% (Flush) Syringe IV 06/19/25 11:59
PER PROTOCOL TRAVON
Home Medications
�Medication �Instructions �Recorded
atorvastatin 10 mg tablet 20 mg PO HS High cholesterol 11/14/14
lisinopril 20 mg tablet 20 mg PO HS ##0 12/17/14
allopurinol 300 mg tablet 600 mg PO HS Gout 05/22/25
ibuprofen 200 mg tablet (Advil) 200 mg PO Q6HPRN PRN mild pain 05/22/25
levothyroxine 75 mcg tablet 75 mcg PO DAILY Thyroid 05/22/25
(Synthroid)
prednisone 5 mg tablet 5 mg PO DAILY Anti-Inflammatory 05/22/25
psyllium 1 packet PO DAILY Constipation 05/22/25
therapeutic multivitamin 1 tab PO DAILY Supplement 05/22/25
--- NOTE | 2025-05-27 15:50 | CON.MD ---
Documented by User: Margarita Menchaca PA-C 05/27/25 17:08
Consultation - Medical
-
Referring Provider:�Tl Matthews
Chief Complaint:�Bilateral lower extremity weakness
�
History of Present Illness:�Patient is 64 years old male with history of hypertension, hyperlipidemia, gout, hypothyroidism, presented to [facility] on 05/22/2025 with sudden onset of lower extremity weakness and gait ataxia and ptosis. Seen by neurology
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 T-spine MRI w/wo erick�nonenhancing, T4 1.2 cm T2 hyperintensity. NCS/EMG(05/22/2025) mild chronic axonal sensory peripheral polyneuropathy.
Bilateral lower extremity weakness significantly worse compared to day of admission 05/22. Patient drove himself to hospital and is now too weak to stand or bear weight. Cannot move his legs off the bed.
Unclear etiology-->Differential diagnosis includes transverse myelitis versus inflammatory or demyelinating myelopathy versus myasthenia gravis versus Guillain-Ramirez� .
Thoracic spine MRI shows small focus of T2 hyperintense signal in the thoracic cord at T4 level measuring 1.2 cm in length without enhancement. Linear signal to the right of midline and not significantly expansile. Nonspecific and could be
secondary to demyelination or other inflammatory/infectious etiology for transverse myelitis.
Brain MRI without acute disease. Cervical spine MRI shows degenerative changes without alteration or enhancement of the cervical spinal cord.
Patient received 2 treatments of IVIG while awaiting lumbar puncture results. Neurology recommended restarting IVIG due to the possibility of Guillain-Ramirez� syndrome, with the goal of 5 treatments. So far has received 4 treatments as of 05/27 with
improved symptoms.
Patient seen at bedside, says that he feels much stronger and better today than he did yesterday. He had some physical therapy and did some walking from his bed to the bathroom. He feels that his lower extremities are stronger. Still having some
numbness in the bottom of both feet. He reported his last bowel movement since Sunday. Denies any chest pain, shortness of breath, dizziness, lightheadedness, nausea, vomiting, fever, dysuria, abdominal pain. He is urinating on his own without
any issues. He has some pain in the right elbow with some restrictive movement due to swelling from gout.
�
Past Medical History:� Hypertension, hyperlipidemia, gout, hypothyroidism, diabetes, arthritis
Procedure History:�Colonoscopy, upper endoscopy, debridement of his bilateral great toes.
Family History:�Dad and Mom CHF,
�
Social History:�
Functional Level Premorbidly:�Independent with all activities�
Functional Level Currently:�Toileting�max assist, grooming�set up, upper extremity self-care�min assist, lower extremity self-care�max assist, bed mobility�, toilet transfer�max assist, transfer�mod assist, ambulates 20 feet x 2 with rolling walker
and mod assist x 1 and second person for safety
�
Tobacco:�Denies�
Alcohol:�used to be social drinker but stopped drinking�
Drug use:�Denies�
�
Lives with:�Spouse
24-hour assistance available:�
Number of floors:�2
# steps to enter:�2
# steps to second floor: FF
Potential First floor set up:�possibly
Driving:�Yes
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
�
�
Allergies:�
Allergy/AdvReac Type Severity Reaction Status Date / Time
levofloxacin (From Levaquin) Allergy Nausea / Verified 05/22/25 22:37
Vomiting
metronidazole (From Flagyl) Allergy Nausea / Verified 05/22/25 22:37
Vomiting
Allergy/AdvReac Type Severity Reaction Status Date / Time
levofloxacin (From Levaquin) Allergy Nausea / Verified 05/22/25 22:37
Vomiting
metronidazole (From Flagyl) Allergy Nausea / Verified 05/22/25 22:37
Vomiting
�
Review of Systems:�
Constitutional: (x) Normal _
Eye: (x) Normal _
Ear/Nose/Throat: (x) Normal _
Respiratory: (x) Normal _
Cardiovascular: (x) Normal _
Gastrointestinal: (x) abNormal _constipation
Genitourinary: (x) Normal _
Musculoskeletal: (x) abNormal _b/l leg weakness, right elbow pain, gout
Integumentary: (x) Normal _
Neurologic: (x) Normal _
Psychiatric: (x) Normal _
Endocrine: (x) Normal _
Hematologic/Lymphatic: (x) Normal _
Allergic/Immunologic: (x) Normal _
�
Medications:�
Active Current Visit Medication List
Category Date Time Status
Acetaminophen [Tylenol] Med 05/22/25 11:05 Active
650 mg PO Q4HPRN PRN
Allopurinol [Zyloprim] Med 05/22/25 22:00 Active
600 mg PO HS
Bisacodyl [Dulcolax] Med 05/22/25 11:05 Active
10 mg RECTAL A35GAVP PRN
Docusate W/Senna [Senokot-S] Med 05/25/25 09:15 Active
1 tablet PO BID
Enoxaparin Sodium [Lovenox] Med 05/27/25 18:00 Active
40 mg SC QPM
Flush (0.9% Sodium Chloride) [Flush (Nss)] Med 05/22/25 12:00 Active
See Dose Instructions IV PER PROTOCOL
Gabapentin [Neurontin] Med 05/23/25 18:00 Active
300 mg PO TID
HYDROmorphone [Dilaudid] Med 05/23/25 13:58 Active
0.5 mg IV Q4HPRN PRN
Immune Globulin 30 Grams/300Ml [Gammagard] Med 05/22/25 12:00 Active
30 grams in 300 ml IV DAILY@1200
Levothyroxine [Synthroid] Med 05/25/25 06:00 Active
100 mcg PO DAILY@0600
Lisinopril [Zestril] Med 05/22/25 22:00 Active
20 mg PO HS
Multivitamin [Theragran] Med 05/23/25 08:00 Active
1 tablet PO DAILY
Oxycodone/Acetaminophen [Percocet 5/325] Med 05/24/25 11:45 Active
1 tablet PO Q4HPRN PRN
Polyethylene Glycol Powder [Miralax] Med 05/25/25 09:10 Active
17 grams PO DAILY
�
Vitals:�
Temp Pulse Resp BP Pulse Ox
97.6 F 97 11 113/75 99
05/27/25 07:25 05/27/25 06:00 05/27/25 06:00 05/27/25 06:00 05/26/25 20:47
Height 5 ft 9 in
Actual Weight 90.8 kg
Body Mass Index (BMI) 29.6
�
Physical Exam:�
General Appearance/Observation: Well-developed, well-nourished individual in no apparent distress.�
Pain/Comfort Assessment: Right elbow
Mood/Affect: Appropriate, pleasant�
Integumentary/Operative Site:�
�� Pressure Ulcer Evaluation: absent over heels.�
�
�� Other Type of Wound: absent�
�
�
Eyes: Conjunctiva/Lids: normal���� Pupils: pupils equal round and reactive to light and Accommodation�
Ears/Nose/Throat: oral mucosa moist,� throat clear.������������ Lips/Teeth/Gums: normal�
Neck: No muscle spasm or tenderness�
Cardiovascular: Heart: regular, no murmur�
Pulses: dorsalis pedis 2+ bilaterally�
Respiratory: Respiratory Effort/Chest Expansion: normal������� Auscultation: Clear to auscultation bilaterally�
Gastrointestinal: abdomen not tender, some distension, normal abdominal bowel sounds
Genitourinary: No Pitts�
Extremities:�Edema: None�Cyanosis: None�Trophic�changes: None
�
Neurology Exam:
Orientation: Alert, Oriented to self, Time, Place�
Memory: Intact for immediate medical concerns
Comprehension: Intact
Two step command: Intact
Naming: Intact
Cranial Nerves:
�� CNII:�Pupillary light reflex: Intact����Visual Field: Intact
�� CN III, IV, : Extraocular muscles: Intact�
�� CN V:�Facial Sensation�at�Forehead: Intact,�Maxilla: Intact,�Mandible: Intact
�� CN VII:�Facial movement: Symmetric
�� CN VIII:�Hearing: Normal
�� CN IX/X:�Speech & swallow: Normal,�Position of Uvula: Midline
�� CN XI:�Shoulder shrug: Symmetric
�� CN XII:�Tongue protrusion: Midline
Sensory:
�� Light touch: Intact in bilateral upper and lower extremities, diminished sensation in the medial aspect of bilateral feet
��
�
Reflexes:
�� Biceps: 2+ bilaterally
�� Brachioradialis: 2+ left, deferred right due to swelling, gout
�� Triceps: 2+ bilaterally
�� Patellar: 2+ bilaterally
�� Achilles: 2+ left, absent right
�� Babinski: Down going bilaterally
�� Clonus: None
�� Jhonny: Negative bilaterally�
Cerebellar: Dysmetria/Ataxia: None�
Musculoskeletal:
Motor: (Manual muscle scale 0-5)�
Muscle SA EF WE EE FF FA HF KE DF EHL PF
Right� 5 *3 5 *3+ 5 5 4- 4- 4 4 4-
Left 5 5 5 5 5 5 4 4 4 4 4-
* pain, swelling
�firm nodule- gout- on left patella and great toe-left, right elbow with swelling, some redness and tender to touch, diminished rom
Tone: Normal in all extremities�
Range of Motion: Passively within normal limits in all extremities. diminished right elbow flexion due to swelling and pain
�
Lab Results:
Labs
WBC 9.6 10^3/uL (4.8-10.8) 05/25/25 03:25
RBC 4.12 10^6/uL (4.70-6.10) L 05/25/25 03:25
Hgb 13.6 g/dL (13.0-18.0) 05/25/25 03:25
Hct 39.0 % (39.0-52.0) 05/25/25 03:25
MCV 94.7 fL (80.0-94.0) H 05/25/25 03:25
MCH 33.0 pg (27.0-31.0) H 05/25/25 03:25
MCHC 34.9 g/dL (33.0-37.0) 05/25/25 03:25
RDW 13.2 % (11.5-14.5) 05/25/25 03:25
Plt Count 240 10^3/uL (130-400) 05/25/25 03:25
MPV 8.8 fL (7.4-10.4) 05/25/25 03:25
Abs Immat Gran (auto) 0.1 10^3/uL (0-0.05) H 05/25/25 03:25
Absolute Neuts (auto) 6.8 10^3/uL (1.4-6.5) H 05/25/25 03:25
Absolute Lymphs (auto) 1.7 10^3/uL (1.2-3.4) 05/25/25 03:25
Absolute Monos (auto) 0.9 10^3/uL (0.1-0.6) H 05/25/25 03:25
Absolute Eos (auto) 0.0 10^3/uL (0-0.7) 05/25/25 03:25
Absolute Basos (auto) 0.1 10^3/uL (0-0.2) 05/25/25 03:25
Immature Gran % 0.9 % (0-0.5) H 05/25/25 03:25
Neutrophils % 70.4 % (42.2-75.2) 05/25/25 03:25
Lymphocytes % 18.0 % (20.5-51.1) L 05/25/25 03:25
Monocytes % 9.7 % (1.7-9.3) H 05/25/25 03:25
Eosinophils % 0.3 % (0-6) 05/25/25 03:25
Basophils % 0.7 % (0-2) 05/25/25 03:25
Nucleated RBC % 0 % (-) 05/25/25 03:25
ESR 84 mm/hour (0-20) H 05/25/25 03:25
PT 14.1 Sec (11.4-14.6) 05/25/25 03:25
INR 1.06 05/25/25 03:25
Sodium 132 mmol/L (135-145) L 05/25/25 03:25
Potassium 5.0 mmol/L (3.5-5.1) 05/25/25 03:25
Chloride 99 mmol/L (98-107) 05/25/25 03:25
Carbon Dioxide 26 mmol/L (22-30) 05/25/25 03:25
BUN 15 mg/dl (9-20) 05/25/25 03:25
Creatinine 0.9 mg/dL (0.7-1.3) 05/25/25 03:25
Estimated Creat Clear 82 ml/min 05/25/25 03:25
eGFR > 60.00 05/25/25 03:25
Glucose 128 mg/dl (70-99) H 05/25/25 03:25
Serum Osmolality Cancelled 05/24/25 09:17
Uric Acid 5.5 mg/dl (3.5-8.5) 05/22/25 07:05
Calcium 9.2 mg/dl (8.4-10.2) 05/25/25 03:25
Ferritin Cancelled 05/22/25 07:34
Total Bilirubin 1.0 mg/dl (0.2-1.3) 05/22/25 07:05
AST 55 U/L (17-59) 05/22/25 07:05
ALT 56 U/L (0-50) H 05/22/25 07:05
Alkaline Phosphatase 65 U/L (38-126) 05/22/25 07:05
Creatine Kinase 103 U/L (55-170) 05/22/25 07:05
Total Creatine Kinase Cancelled 05/22/25 07:34
CK-MB (CK-2) 1.6 ng/ml (0.0-3.4) 05/22/25 07:05
C-Reactive Protein > 270.00 mg/L (0.0-10.00) H 05/25/25 03:25
Total Protein 7.4 g/dl (6.3-8.2) 05/22/25 07:05
Tot Protein (send out) 7.6 g/dL (6.3-8.2) 05/23/25 14:03
Albumin 4.7 g/dl (3.5-5.0) 05/22/25 07:05
Albumin (PEP) 4.13 g/dL (3.75-5.01) 05/23/25 14:03
Dzujn-9-Qxttmnnuc 0.32 g/dL (0.19-0.46) 05/23/25 14:03
Kkfil-2-Bhdpjewuz 1.03 g/dL (0.48-1.05) 05/23/25 14:03
Beta Globulins 0.81 g/dL (0.48-1.10) 05/23/25 14:03
Gamma Globulins 1.32 g/dL (0.62-1.51) 05/23/25 14:03
Ser Monoclonl Protein Not applicable g/dL (<=0.00) 05/23/25 14:03
Serum PEP EER See note 05/23/25 14:03
Angiotensin Convert Enz <10 U/L (16-85) L 05/24/25 14:32
Whole Bld Vitamin B1 228 nmol/L (70-180) H 05/23/25 14:03
Vitamin B12 Cancelled 05/22/25 07:34
Vitamin D 25-Hydroxy 40.4 ng/mL (30-80) 05/22/25 09:17
Alpha-Tocopherol 12.4 mg/L (5.5-18.0) 05/22/25 09:17
Gamma-Tocopherol 1.4 mg/L (0.0-6.0) 05/22/25 09:17
Folate Cancelled 05/22/25 07:34
TSH (Reflex) 7.58 uIU/ml (0.47-4.68) H 05/23/25 05:02
Free T4 1.15 ng/dl (0.78-2.19) 05/22/25 07:05
Random Cortisol 10.6 ug/dl 05/25/25 03:25
Serum Immunofix Reflex Not done 05/23/25 14:03
Urine Color Yellow 05/23/25 14:05
Urine Clarity Clear (Clear) 05/23/25 14:05
Urine pH 7.0 (5.0-9.0) 05/23/25 14:05
Ur Specific Stanton 1.010 (<1.030) 05/23/25 14:05
Urine Ketones Negative (Negative) 05/23/25 14:05
Urine Occult Blood Negative (Negative) 05/23/25 14:05
Urine Nitrite Negative (Negative) 05/23/25 14:05
Urine Bilirubin Negative (Negative) 05/23/25 14:05
Urine Urobilinogen Negative (Neg - 1+) 05/23/25 14:05
Ur Leukocyte Esterase Negative (Negative) 05/23/25 14:05
Urine Osmolality 379 mOsm/kg (300-900) 05/25/25 03:25
Urine Sodium 53 mmol/L (30-90) 05/25/25 03:25
Urine Glucose Negative (Negative) 05/23/25 14:05
Urine Albumin Negative (Neg - Trace) 05/23/25 14:05
CSF Appearance Clear 05/24/25 08:45
CSF Appearance Clear 05/24/25 08:45
CSF Color Colorless 05/24/25 08:45
CSF Color Colorless 05/24/25 08:45
CSF WBC 2 mm^3 (0-5) 05/24/25 08:45
CSF WBC 3 mm^3 (0-5) 05/24/25 08:45
CSF RBC 18 mm^3 05/24/25 08:45
CSF RBC 19 mm^3 05/24/25 08:45
CSF Cell Count Tube # 3 05/24/25 08:45
CSF Cell Count Tube # 4 05/24/25 08:45
CSF Glucose 84 mg/dl (40-70) H 05/24/25 08:45
CSF Total Protein 73 mg/dl (12-60) H 05/24/25 08:45
CSF Angiotensin Conv Enz Cancelled 05/25/25 05:00
CSF West Nile IgM Ab Cancelled 05/25/25 16:11
Serum Copper 95.0 ug/dL (70.0-140.0) 05/22/25 09:17
Zinc 60.4 ug/dL (60.0-120.0) 05/24/25 14:32
MONSE & SPEP Interp See note 05/23/25 14:03
KIANA IgG Screen None detected (None Detected) 05/24/25 14:32
Acetylchol Rcpt Bind Ab 0.0 nmol/L (0.0-0.4) 05/22/25 09:17
Syphilis Serology Positive (Negative) 05/24/25 14:32
RPR Weakly reactive (NonReactive) 05/24/25 14:32
A. phagocytophilum (PCR) Not detected 05/22/25 07:05
Lyme Specimen Source Cancelled 05/25/25 05:00
Lyme Screen IgG & IgM Negative (Negative) 05/24/25 14:32
Lyme Disease DNA (PCR) Cancelled 05/25/25 05:00
E.chaffeensis DNA (PCR) Not detected 05/22/25 07:05
E. ewingii/canis (PCR) Not detected 05/22/25 07:05
E. muris-like DNA (PCR) Not detected 05/22/25 07:05
HIV Ag/Ab Combo Qual Negative (Negative) 05/24/25 03:58
Miscellaneous Test Cancelled 05/24/25 03:58
�
Diagnostic Results:�as per HPI�
Lumbar MRI�05/23/2025
TECHNIQUE: MRI examinations of the thoracic spine in the lumbar spine were performed with and without intravenous contrast on a 1.5 Dimple magnet. Imaging was performed before and after the intravenous administration of 19 mL Clariscan gadolinium
contrast material.
COMPARISON: CT abdomen/pelvis 06/29/2021.
FINDINGS:
Limited by motion artifact.
THORACIC SPINE:
The vertebral body heights are maintained. No suspicious marrow lesion. Chronic mild multilevel degenerative disc space narrowing, disc desiccation, and endplate osteophytes. No spondylolisthesis.
Small focus of T2 hyperintense signal in the thoracic spinal cord at the T4 level measuring 1.2 cm in length (series 501, image 10). Linear morphology just to the right of midline. Not significantly expansile. The thoracic spinal cord is otherwise
unremarkable.
No abnormal postcontrast enhancement.
A few trace disc bulges/disc protrusions are noted. No significant spinal canal stenosis or neuroforaminal stenosis in the thoracic spine.
LUMBAR SPINE:
The vertebral body heights are maintained. No suspicious marrow lesion. Chronic multilevel disc space narrowing, moderate to severe at L3-L4, moderate at L4-L5, and mild at L1-L2 and L2-L3. Multilevel disc desiccation and endplate osteophytes. STIR
hyperintense degenerative endplate signal at L2-L3 (Modic type I). Fatty degenerative endplate signal at L3-L4 and L4-L5 (Modic type II). Mild degenerative endplate signal noted elsewhere in the lumbar spine. No significant spondylolisthesis.
The conus medullaris terminates at the T12-L1 level and is normal in signal and morphology.
Small disc bulges at T12-L1 and L1-L2. Disc bulges, ligamentum flavum hypertrophy, and facet arthrosis elsewhere in the lumbar spine. Mild left and minimal right neuroforaminal stenosis at L2-L3. Mild spinal canal stenosis, and moderate right and
mild left neuroforaminal stenosis at L3-L4. Moderate spinal canal stenosis, and moderate right and mild left neuroforaminal stenosis at L4-L5. Mild bilateral neuroforaminal stenosis at L5-S1.
IMPRESSION:
Small focus of T2 hyperintense signal in the thoracic spinal cord at the T4 level measuring 1.2 cm in length without enhancement. Linear signal to the right of midline and not significantly expansile. Nonspecific and could be secondary to
demyelination or other inflammatory/infectious etiology for transverse myelitis.
Chronic degenerative changes of the thoracolumbar spine.
Thoracic MRI�05/23/2025
TECHNIQUE: MRI examinations of the thoracic spine in the lumbar spine were performed with and without intravenous contrast on a 1.5 Dimple magnet. Imaging was performed before and after the intravenous administration of 19 mL Clariscan gadolinium
contrast material.
COMPARISON: CT abdomen/pelvis 06/29/2021.
FINDINGS:
Limited by motion artifact.
THORACIC SPINE:
The vertebral body heights are maintained. No suspicious marrow lesion. Chronic mild multilevel degenerative disc space narrowing, disc desiccation, and endplate osteophytes. No spondylolisthesis.
Small focus of T2 hyperintense signal in the thoracic spinal cord at the T4 level measuring 1.2 cm in length (series 501, image 10). Linear morphology just to the right of midline. Not significantly expansile. The thoracic spinal cord is otherwise
unremarkable.
No abnormal postcontrast enhancement.
A few trace disc bulges/disc protrusions are noted. No significant spinal canal stenosis or neuroforaminal stenosis in the thoracic spine.
LUMBAR SPINE:
The vertebral body heights are maintained. No suspicious marrow lesion. Chronic multilevel disc space narrowing, moderate to severe at L3-L4, moderate at L4-L5, and mild at L1-L2 and L2-L3. Multilevel disc desiccation and endplate osteophytes. STIR
hyperintense degenerative endplate signal at L2-L3 (Modic type I). Fatty degenerative endplate signal at L3-L4 and L4-L5 (Modic type II). Mild degenerative endplate signal noted elsewhere in the lumbar spine. No significant spondylolisthesis.
The conus medullaris terminates at the T12-L1 level and is normal in signal and morphology.
Small disc bulges at T12-L1 and L1-L2. Disc bulges, ligamentum flavum hypertrophy, and facet arthrosis elsewhere in the lumbar spine. Mild left and minimal right neuroforaminal stenosis at L2-L3. Mild spinal canal stenosis, and moderate right and
mild left neuroforaminal stenosis at L3-L4. Moderate spinal canal stenosis, and moderate right and mild left neuroforaminal stenosis at L4-L5. Mild bilateral neuroforaminal stenosis at L5-S1.
IMPRESSION:
Small focus of T2 hyperintense signal in the thoracic spinal cord at the T4 level measuring 1.2 cm in length without enhancement. Linear signal to the right of midline and not significantly expansile. Nonspecific and could be secondary to
demyelination or other inflammatory/infectious etiology for transverse myelitis.
Chronic degenerative changes of the thoracolumbar spine.
X-ray knee�left�05/23/2025
3 views of the left knee were performed.
COMPARISON: None.
FINDINGS/IMPRESSION:
No acute fracture or dislocation.
Mild joint space narrowing of the medial tibiofemoral compartment. Tiny patellar marginal osteophytes.
Small suprapatellar joint effusion.
Hypertrophic bone formation along the anterior aspect of the inferior pole of the patella. Localized overlying anterior soft tissue prominence. Findings are of uncertain etiology by radiograph. A chronic prepatellar bursitis is a consideration.
Recommend clinical correlation.
Knee x-ray-right 05/24/2025
TECHNIQUE: 2 views of the right knee were performed.
COMPARISON: 08/07/2006.
FINDINGS/IMPRESSION:
No acute fracture or dislocation.
Moderate joint space narrowing of the lateral tibiofemoral compartment. Mild joint space narrowing of the medial compartment and the patellofemoral compartment.
Moderate to large suprapatellar joint effusion.
Vascular calcifications.
Brain MRI�05/25/2025
TECHNIQUE: An MRI examination of the brain was performed with and without intravenous contrast. Sagittal 3-D T1 weighted gradient echo images are obtained pre and postcontrast, including axial and coronal reconstructions. Axial diffusion-weighted,
axial T2 weighted gradient echo, axial and coronal fast spin-echo T2, and axial FLAIR sequences are also obtained.
COMPARISON: None.
FINDINGS:
No abnormal parenchymal signal intensity is identified. The ventricles and sulci are normal in size and configuration. No mass effect, midline shift, or extra axial collection. No abnormal parenchymal or meningeal enhancement. No abnormal signal
intensity on diffusion-weighted images.
The vascular flow voids at the skull base are unremarkable, as far as visualized.
The paranasal sinuses and mastoids are clear.
IMPRESSION:
No acute intracranial abnormality.
Cervical MRI 05/25/2025
TECHNIQUE: MRI of the cervical spine was performed. The examination consists of coronal and sagittal STIR, sagittal fast spin-echo T2 without and with fat saturation, axial 3-D T2-weighted gradient-echo, sagittal T1-weighted sequences without and
with fat saturation pre- and postcontrast, and pre- and postcontrast axial 3-D T1 weighted gradient-echo sequences.
COMPARISON: Thoracic spine MRI 05/23/2025.
FINDINGS:
The examination is limited by motion artifact.
The vertebral body heights are maintained. No suspicious marrow lesion. Multilevel disc space narrowing, moderate to severe at C4-C5 and C5-C6. Multilevel disc desiccation and endplate osteophytes. No significant spondylolisthesis.
The cervical spinal cord is normal in signal and morphology.
No abnormal postcontrast enhancement.
Axial images demonstrate the following:
C2-C3: A disc bulge, uncovertebral arthrosis, and facet arthrosis contribute to mild left neuroforaminal stenosis. No spinal canal stenosis or right neuroforaminal stenosis.
C3-C4: A central disc protrusion indents the ventral thecal sac and causes mild spinal canal stenosis. Uncovertebral arthrosis and facet arthrosis contribute to mild to moderate right and mild left neuroforaminal stenosis.
C4-C5: A disc osteophyte complex causes moderate spinal canal stenosis. Uncovertebral arthrosis and facet arthrosis contribute to severe left and trace moderate right neuroforaminal stenosis.
C5-C6: Small disc bulge. No spinal canal stenosis. Uncovertebral arthrosis and facet arthrosis contribute to mild bilateral neuroforaminal stenosis.
C6-C7: Small disc bulge. No spinal canal stenosis. Uncovertebral arthrosis and facet arthrosis contribute to mild left neuroforaminal stenosis. No right neuroforaminal stenosis.
C7-T1: No disc herniation. Bilateral facet arthrosis. No spinal canal or neuroforaminal stenosis.
IMPRESSION:
No MRI evidence for signal alteration or enhancement of the cervical spinal cord.
Chronic degenerative changes of the cervical spine including degenerative disc disease with multilevel disc bulges/protrusions, uncovertebral arthrosis, and facet arthrosis.
Moderate spinal canal stenosis at C4-C5.
Mild spinal canal stenosis at C3-C4.
Varying degrees of chronic multilevel bilateral neuroforaminal stenosis, overall most severe on the left at the C4-C5 level.
ROCEDURE: Diagnostic lumbar puncture under fluoroscopic guidance.
COMPARISON: None.
TECHNIQUE: The risks and benefits of the procedure were discussed with the patient and informed, written consent was obtained. The patient was brought into the angiography suite and positioned prone. A time-out was performed to verify the patient's
identity and the planned procedure.
The back was prepped and draped in the usual sterile fashion. Maximum sterile barrier technique was used throughout. The procedure was performed under continuous hemodynamic monitoring.
An appropriate skin entry site to access the lumbar thecal sac was marked at the L4-5 level. 5 cc of 2% lidocaine was administered for local anesthesia. The attempt at this level was unsuccessful therefore the L5-S1 level was marked. 10 mL of 2%
lidocaine was administered for local anesthesia. A 22 gauge Sprotte spinal needle was advanced into the thecal sac with recovery of clear cerebrospinal fluid. An opening pressure of 19.5 cm H2O was obtained. Subsequently 10 mL of clear cerebrospinal
fluid were collected in 4 tubes. Samples were sent to the laboratory for analysis. No closing pressure was obtained. The needle was removed and a sterile dressing was applied. There were no immediate complications.
Fluoro time: 1.4 min
AirKerma: 23.41 mGy
No additional images obtained.
IMPRESSION: 1. Successful fluoroscopically guided lumbar puncture as described. ROCEDURE: Diagnostic lumbar puncture under fluoroscopic guidance.
COMPARISON: None.
TECHNIQUE: The risks and benefits of the procedure were discussed with the patient and informed, written consent was obtained. The patient was brought into the angiography suite and positioned prone. A time-out was performed to verify the patient's
identity and the planned procedure.
The back was prepped and draped in the usual sterile fashion. Maximum sterile barrier technique was used throughout. The procedure was performed under continuous hemodynamic monitoring.
An appropriate skin entry site to access the lumbar thecal sac was marked at the L4-5 level. 5 cc of 2% lidocaine was administered for local anesthesia. The attempt at this level was unsuccessful therefore the L5-S1 level was marked. 10 mL of 2%
lidocaine was administered for local anesthesia. A 22 gauge Sprotte spinal needle was advanced into the thecal sac with recovery of clear cerebrospinal fluid. An opening pressure of 19.5 cm H2O was obtained. Subsequently 10 mL of clear cerebrospinal
fluid were collected in 4 tubes. Samples were sent to the laboratory for analysis. No closing pressure was obtained. The needle was removed and a sterile dressing was applied. There were no immediate complications.
Fluoro time: 1.4 min
AirKerma: 23.41 mGy
No additional images obtained.
IMPRESSION: 1. Successful fluoroscopically guided lumbar puncture as described.
�
Assessment: 64-year-old male with past medical history of hypertension, hyperlipidemia, gout, hypothyroidism, treated hep C presented to ED with bilateral lower extremity weakness with differential diagnosis to include Guillain-Ramirez� syndrome.
Treated with 5 days of IVIG with improvement of symptoms. Continues to have ambulatory dysfunction and ADL dysfunction
�
Plan�
PM&R�PT/OT to increase independence with ADLs, improve balance, coordination, endurance, strength, mobility, community reintegration, decreased burden of care on others and family education.�
�
Bilateral lower extremity weakness: unclear etiology. differential diagnosis Guillain-[place]ain[place] syndrome: Per neurology, IVIG for total of 5 days. Awaiting lumbar puncture results. C-reactive protein- >270, Angiotensin Converting Enzyme- low <10,
random cortisol- 10.6-normal. CSF culture- preliminary- No growth after 18-24 hours. Completed 4 out of 5 treatments. Feeling better with improved lower extremity strength
HTN: Lisinopril 20mg daily. �
HLD: Statin�
Hyponatremia -stable at 132. Monitor for now.
Hypothyroidism: TSH elevated, 7.5. Levothyroxine dose increased from 75 to 100 mcg daily. Check TSH in 4 weeks.
Acute right elbow gout: presumed diagnosis given known history of gout., allopurinol-600 mg every evening. Previously on colchicine but caused GI upset. Changed to Prednisone 5mg daily by his paper sorter and counter. Started on Prednisone 40mg daily in
hospital.
Peripheral neuropathy: Gabapentin and increase as needed. Add b12
Psych: Psychology consult.� Monitor mood, adjust medications as needed.�
Skin: monitor for pressure sores/rashes/lesions.�
Pain: acetaminophen or Percocet 5/325 q 4 hours as needed.�Hydromorphone 0.5 IV q 4 hours prn
Bowel/constipation: Senokot S, PRN bisacodyl.�Miralax. Last BM per patient 5 days ago. Add colace 100mg bid, change to senna 17 gram daily and rectal Bisacodyl
Bladder: Time void, PVRs, PRN straight cath.�
GI Prophylaxis: Pantoprazole�
DVT Prophylaxis: Lovenox sc
Pulmonary: Incentive spirometry�
Obesity: Continue to mortgage counselor patient about diet adjustments to control obesity. Body habitus and increased force to move body and extremities causes further difficulty with functional tasks.�
Safety: Continue to reinforce assistance with all transfers.�
Code Status:� Full code
Dispo�(date/plan/equipment needs): Home with family care.� Social history reviewed.�
�
Functional and Medical Goals:�Modified Independent with ADL�s, ambulation, transfers�
�
�
Discharge Destination:�Patient with bilateral lower extremity weakness, ambulatory dysfunction presumably from Guillain [place] Syndrome would benefit from acute inpatient rehabilitation once medically stable for PT/OT to increase independence with
ADLs, improve balance, coordination, endurance, strength, mobility, community reintegration,
�
Summary of recommendations:
�Bowel/constipation: Senokot S, PRN bisacodyl.�Miralax. Last BM per patient 5 days ago. Add colace 100mg bid, change senokot to senna 17 gram daily and rectal Bisacodyl
Peripheral neuropathy: Gabapentin and increase as needed. Can add b12 supplement
Thank you for allowing me to care for your patient. Please contact me with any questions or concerns.
Consultation
-
Date/Time Consultation Requested: 05/26/2025
Date/Time Consultation Performed: 14/09/2024
Requesting Provider: Tl Muhammad
Performing Provider: Margarita Menchaca/Dr. Giles
Reason for Consultation: Bilateral leg weakness

Documented by User: Iraj Giles MD 05/28/25 16:59
Consultation - Medical
-
Referring Provider:�Tl Matthews
Chief Complaint:�Bilateral lower extremity weakness
�
History of Present Illness:�Patient is 64 years old male with history of hypertension, hyperlipidemia, gout, hypothyroidism, presented to [facility] on 05/22/2025 with sudden onset of lower extremity weakness and gait ataxia and ptosis. Seen by neurology
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 T-spine MRI w/wo erick�nonenhancing, T4 1.2 cm T2 hyperintensity. NCS/EMG(05/22/2025) mild chronic axonal sensory peripheral polyneuropathy.
Bilateral lower extremity weakness significantly worse compared to day of admission 05/22. Patient drove himself to hospital and is now too weak to stand or bear weight. Cannot move his legs off the bed.
Unclear etiology-->Differential diagnosis includes transverse myelitis versus inflammatory or demyelinating myelopathy versus myasthenia gravis versus Guillain-Ramirez� .
Thoracic spine MRI shows small focus of T2 hyperintense signal in the thoracic cord at T4 level measuring 1.2 cm in length without enhancement. Linear signal to the right of midline and not significantly expansile. Nonspecific and could be
secondary to demyelination or other inflammatory/infectious etiology for transverse myelitis.
Brain MRI without acute disease. Cervical spine MRI shows degenerative changes without alteration or enhancement of the cervical spinal cord.
Patient received 2 treatments of IVIG while awaiting lumbar puncture results. Neurology recommended restarting IVIG due to the possibility of Guillain-Ramirez� syndrome, with the goal of 5 treatments. So far has received 4 treatments as of 05/27 with
improved symptoms.
Patient seen at bedside, says that he feels much stronger and better today than he did yesterday. He had some physical therapy and did some walking from his bed to the bathroom. He feels that his lower extremities are stronger. Still having some
numbness in the bottom of both feet. He reported his last bowel movement since Sunday. Denies any chest pain, shortness of breath, dizziness, lightheadedness, nausea, vomiting, fever, dysuria, abdominal pain. He is urinating on his own without
any issues. He has some pain in the right elbow with some restrictive movement due to swelling from gout.
�
Past Medical History:� Hypertension, hyperlipidemia, gout, hypothyroidism, diabetes, arthritis
Procedure History:�Colonoscopy, upper endoscopy, debridement of his bilateral great toes.
Family History:�Dad and Mom CHF
�
Social History:�
Functional Level Premorbidly:�Independent with all activities�
Functional Level Currently:�Toileting�max assist, grooming�set up, upper extremity self-care�min assist, lower extremity self-care�max assist, bed mobility�, toilet transfer�max assist, transfer�mod assist, ambulates 20 feet x 2 with rolling walker
and mod assist x 1 and second person for safety
�
Tobacco:�Denies�
Alcohol:�used to be social drinker but stopped drinking�
Drug use:�Denies�
�
Lives with:�Spouse
24-hour assistance available:�
Number of floors:�2
# steps to enter:�2
# steps to second floor: FF
Potential First floor set up:�possibly
Driving:�Yes
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
�
�
Allergies:�
Allergy/AdvReac Type Severity Reaction Status Date / Time
levofloxacin (From Levaquin) Allergy Nausea / Verified 05/22/25 22:37
Vomiting
metronidazole (From Flagyl) Allergy Nausea / Verified 05/22/25 22:37
Vomiting
Allergy/AdvReac Type Severity Reaction Status Date / Time
levofloxacin (From Levaquin) Allergy Nausea / Verified 05/22/25 22:37
Vomiting
metronidazole (From Flagyl) Allergy Nausea / Verified 05/22/25 22:37
Vomiting
�
Review of Systems:�
Constitutional: (x) abNormal _ fatigue
Eye: (x) Normal _
Ear/Nose/Throat: (x) Normal _
Respiratory: (x) Normal _
Cardiovascular: (x) Normal _
Gastrointestinal: (x) abNormal _constipation
Genitourinary: (x) Normal _
Musculoskeletal: (x) abNormal _b/l leg weakness, right elbow pain, gout
Integumentary: (x) Normal _
Neurologic: (x) Normal _
Psychiatric: (x) Normal _
Endocrine: (x) Normal _
Hematologic/Lymphatic: (x) Normal _
Allergic/Immunologic: (x) Normal _
�
Medications:�
Active Current Visit Medication List
Category Date Time Status
Acetaminophen [Tylenol] Med 05/22/25 11:05 Active
650 mg PO Q4HPRN PRN
Allopurinol [Zyloprim] Med 05/22/25 22:00 Active
600 mg PO HS
Bisacodyl [Dulcolax] Med 05/22/25 11:05 Active
10 mg RECTAL [id number] PRN
Docusate W/Senna [Senokot-S] Med 05/25/25 09:15 Active
1 tablet PO BID
Enoxaparin Sodium [Lovenox] Med 05/27/25 18:00 Active
40 mg SC QPM
Flush (0.9% Sodium Chloride) [Flush (Nss)] Med 05/22/25 12:00 Active
See Dose Instructions IV PER PROTOCOL
Gabapentin [Neurontin] Med 05/23/25 18:00 Active
300 mg PO TID
HYDROmorphone [Dilaudid] Med 05/23/25 13:58 Active
0.5 mg IV Q4HPRN PRN
Immune Globulin 30 Grams/300Ml [Gammagard] Med 05/22/25 12:00 Active
30 grams in 300 ml IV DAILY@1200
Levothyroxine [Synthroid] Med 05/25/25 06:00 Active
100 mcg PO DAILY@0600
Lisinopril [Zestril] Med 05/22/25 22:00 Active
20 mg PO HS
Multivitamin [Theragran] Med 05/23/25 08:00 Active
1 tablet PO DAILY
Oxycodone/Acetaminophen [Percocet 5/325] Med 05/24/25 11:45 Active
1 tablet PO Q4HPRN PRN
Polyethylene Glycol Powder [Miralax] Med 05/25/25 09:10 Active
17 grams PO DAILY
�
Vitals:�
Temp Pulse Resp BP Pulse Ox
97.6 F 97 11 113/75 99
05/27/25 07:25 05/27/25 06:00 05/27/25 06:00 05/27/25 06:00 05/26/25 20:47
Height 5 ft 9 in
Actual Weight 90.8 kg
Body Mass Index (BMI) 29.6
�
Physical Exam:�
General Appearance/Observation: Well-developed, well-nourished male in no apparent distress.�
Pain/Comfort Assessment: Right elbow
Mood/Affect: Appropriate, pleasant�
Integumentary/Operative Site:�tophi right elbow and left knee
�� Pressure Ulcer Evaluation: absent over heels.�
�
�
Eyes: Conjunctiva/Lids: normal���� Pupils: pupils equal round and reactive to light and Accommodation�
Ears/Nose/Throat: oral mucosa moist,� throat clear.������������ Lips/Teeth/Gums: normal�
Neck: No muscle spasm or tenderness�
Cardiovascular: Heart: regular, no murmur�
Pulses: dorsalis pedis 2+ bilaterally�
Respiratory: Respiratory Effort/Chest Expansion: normal������� Auscultation: Clear to auscultation bilaterally�
Gastrointestinal: abdomen not tender, some distension, normal abdominal bowel sounds
Genitourinary: No Pitts�
Extremities:�Edema: None�Cyanosis: None�Trophic�changes: None
�
Neurology Exam:
Orientation: Alert, Oriented to self, Time, Place�
Memory: Intact for immediate medical concerns
Comprehension: Intact
Two step command: Intact
Naming: Intact
Cranial Nerves:
�� CNII:�Pupillary light reflex: Intact����Visual Field: Intact
�� CN III, IV, : Extraocular muscles: Intact�
�� CN V:�Facial Sensation�at�Forehead: Intact,�Maxilla: Intact,�Mandible: Intact
�� CN VII:�Facial movement: Symmetric
�� CN VIII:�Hearing: Normal
�� CN IX/X:�Speech & swallow: Normal,�Position of Uvula: Midline
�� CN XI:�Shoulder shrug: Symmetric
�� CN XII:�Tongue protrusion: Midline
Sensory:
�� Light touch: Intact in bilateral upper and lower extremities, diminished sensation in the medial aspect of bilateral feet
��
�
Reflexes:
�� Biceps: 2+ bilaterally
�� Brachioradialis: 2+ left, deferred right due to swelling, gout
�� Triceps: 2+ bilaterally
�� Patellar: 2+ bilaterally
�� Achilles: 2+ left, absent right
�� Babinski: Down going bilaterally
�� Clonus: None
�� Jhonny: Negative bilaterally�
Cerebellar: Dysmetria/Ataxia: None�
Musculoskeletal: Motor: (Manual muscle scale 0-5)�
Muscle SA EF WE EE FF FA HF KE DF EHL PF
Right� 5 *3 5 *3+ 5 5 3+ 4 4 4 4
Left 5 5 5 5 5 5 4 4 4 4 4
* pain, swelling
�firm nodule- gout- on left patella and great toe-left, right elbow with swelling, some redness and tender to touch, diminished rom
Tone: Normal in all extremities�
Range of Motion: Passively within normal limits in all extremities. diminished right elbow flexion due to swelling and pain
�
Lab Results:
Labs
WBC 9.6 10^3/uL (4.8-10.8) 05/25/25 03:25
RBC 4.12 10^6/uL (4.70-6.10) L 05/25/25 03:25
Hgb 13.6 g/dL (13.0-18.0) 05/25/25 03:25
Hct 39.0 % (39.0-52.0) 05/25/25 03:25
MCV 94.7 fL (80.0-94.0) H 05/25/25 03:25
MCH 33.0 pg (27.0-31.0) H 05/25/25 03:25
MCHC 34.9 g/dL (33.0-37.0) 05/25/25 03:25
RDW 13.2 % (11.5-14.5) 05/25/25 03:25
Plt Count 240 10^3/uL (130-400) 05/25/25 03:25
MPV 8.8 fL (7.4-10.4) 05/25/25 03:25
Abs Immat Gran (auto) 0.1 10^3/uL (0-0.05) H 05/25/25 03:25
Absolute Neuts (auto) 6.8 10^3/uL (1.4-6.5) H 05/25/25 03:25
Absolute Lymphs (auto) 1.7 10^3/uL (1.2-3.4) 05/25/25 03:25
Absolute Monos (auto) 0.9 10^3/uL (0.1-0.6) H 05/25/25 03:25
Absolute Eos (auto) 0.0 10^3/uL (0-0.7) 05/25/25 03:25
Absolute Basos (auto) 0.1 10^3/uL (0-0.2) 05/25/25 03:25
Immature Gran % 0.9 % (0-0.5) H 05/25/25 03:25
Neutrophils % 70.4 % (42.2-75.2) 05/25/25 03:25
Lymphocytes % 18.0 % (20.5-51.1) L 05/25/25 03:25
Monocytes % 9.7 % (1.7-9.3) H 05/25/25 03:25
Eosinophils % 0.3 % (0-6) 05/25/25 03:25
Basophils % 0.7 % (0-2) 05/25/25 03:25
Nucleated RBC % 0 % (-) 05/25/25 03:25
ESR 84 mm/hour (0-20) H 05/25/25 03:25
PT 14.1 Sec (11.4-14.6) 05/25/25 03:25
INR 1.06 05/25/25 03:25
Sodium 132 mmol/L (135-145) L 05/25/25 03:25
Potassium 5.0 mmol/L (3.5-5.1) 05/25/25 03:25
Chloride 99 mmol/L (98-107) 05/25/25 03:25
Carbon Dioxide 26 mmol/L (22-30) 05/25/25 03:25
BUN 15 mg/dl (9-20) 05/25/25 03:25
Creatinine 0.9 mg/dL (0.7-1.3) 05/25/25 03:25
Estimated Creat Clear 82 ml/min 05/25/25 03:25
eGFR > 60.00 09/29/25 03:25
Glucose 128 mg/dl (70-99) H 05/25/25 03:25
Serum Osmolality Cancelled 05/24/25 09:17
Uric Acid 5.5 mg/dl (3.5-8.5) 05/22/25 07:05
Calcium 9.2 mg/dl (8.4-10.2) 05/25/25 03:25
Ferritin Cancelled 05/22/25 07:34
Total Bilirubin 1.0 mg/dl (0.2-1.3) 05/22/25 07:05
AST 55 U/L (17-59) 05/22/25 07:05
ALT 56 U/L (0-50) H 05/22/25 07:05
Alkaline Phosphatase 65 U/L (38-126) 05/22/25 07:05
Creatine Kinase 103 U/L (55-170) 05/22/25 07:05
Total Creatine Kinase Cancelled 05/22/25 07:34
CK-MB (CK-2) 1.6 ng/ml (0.0-3.4) 05/22/25 07:05
C-Reactive Protein > 270.00 mg/L (0.0-10.00) H 05/25/25 03:25
Total Protein 7.4 g/dl (6.3-8.2) 05/22/25 07:05
Tot Protein (send out) 7.6 g/dL (6.3-8.2) 05/23/25 14:03
Albumin 4.7 g/dl (3.5-5.0) 05/22/25 07:05
Albumin (PEP) 4.13 g/dL (3.75-5.01) 05/23/25 14:03
Gqqmw-1-Xmtekzctl 0.32 g/dL (0.19-0.46) 05/23/25 14:03
Wrbms-0-Dsbyhqpyh 1.03 g/dL (0.48-1.05) 05/23/25 14:03
Beta Globulins 0.81 g/dL (0.48-1.10) 05/23/25 14:03
Gamma Globulins 1.32 g/dL (0.62-1.51) 05/23/25 14:03
Ser Monoclonl Protein Not applicable g/dL (<=0.00) 05/23/25 14:03
Serum PEP EER See note 05/23/25 14:03
Angiotensin Convert Enz <10 U/L (16-85) L 05/24/25 14:32
Whole Bld Vitamin B1 228 nmol/L (70-180) H 05/23/25 14:03
Vitamin B12 Cancelled 05/22/25 07:34
Vitamin D 25-Hydroxy 40.4 ng/mL (30-80) 05/22/25 09:17
Alpha-Tocopherol 12.4 mg/L (5.5-18.0) 05/22/25 09:17
Gamma-Tocopherol 1.4 mg/L (0.0-6.0) 05/22/25 09:17
Folate Cancelled 05/22/25 07:34
TSH (Reflex) 7.58 uIU/ml (0.47-4.68) H 05/23/25 05:02
Free T4 1.15 ng/dl (0.78-2.19) 05/22/25 07:05
Random Cortisol 10.6 ug/dl 05/25/25 03:25
Serum Immunofix Reflex Not done 05/23/25 14:03
Urine Color Yellow 05/23/25 14:05
Urine Clarity Clear (Clear) 05/23/25 14:05
Urine pH 7.0 (5.0-9.0) 05/23/25 14:05
Ur Specific Stanton 1.010 (<1.030) 05/23/25 14:05
Urine Ketones Negative (Negative) 05/23/25 14:05
Urine Occult Blood Negative (Negative) 05/23/25 14:05
Urine Nitrite Negative (Negative) 05/23/25 14:05
Urine Bilirubin Negative (Negative) 05/23/25 14:05
Urine Urobilinogen Negative (Neg - 1+) 05/23/25 14:05
Ur Leukocyte Esterase Negative (Negative) 05/23/25 14:05
Urine Osmolality 379 mOsm/kg (300-900) 05/25/25 03:25
Urine Sodium 53 mmol/L (30-90) 05/25/25 03:25
Urine Glucose Negative (Negative) 05/23/25 14:05
Urine Albumin Negative (Neg - Trace) 05/23/25 14:05
CSF Appearance Clear 05/24/25 08:45
CSF Appearance Clear 05/24/25 08:45
CSF Color Colorless 05/24/25 08:45
CSF Color Colorless 05/24/25 08:45
CSF WBC 2 mm^3 (0-5) 05/24/25 08:45
CSF WBC 3 mm^3 (0-5) 05/24/25 08:45
CSF RBC 18 mm^3 05/24/25 08:45
CSF RBC 19 mm^3 05/24/25 08:45
CSF Cell Count Tube # 3 05/24/25 08:45
CSF Cell Count Tube # 4 05/24/25 08:45
CSF Glucose 84 mg/dl (40-70) H 05/24/25 08:45
CSF Total Protein 73 mg/dl (12-60) H 05/24/25 08:45
CSF Angiotensin Conv Enz Cancelled 05/25/25 05:00
CSF West Nile IgM Ab Cancelled 05/25/25 16:11
Serum Copper 95.0 ug/dL (70.0-140.0) 05/22/25 09:17
Zinc 60.4 ug/dL (60.0-120.0) 05/24/25 14:32
MONSE & SPEP Interp See note 05/23/25 14:03
KIANA IgG Screen None detected (None Detected) 05/24/25 14:32
Acetylchol Rcpt Bind Ab 0.0 nmol/L (0.0-0.4) 05/22/25 09:17
Syphilis Serology Positive (Negative) 05/24/25 14:32
RPR Weakly reactive (NonReactive) 05/24/25 14:32
A. phagocytophilum (PCR) Not detected 05/22/25 07:05
Lyme Specimen Source Cancelled 05/25/25 05:00
Lyme Screen IgG & IgM Negative (Negative) 05/24/25 14:32
Lyme Disease DNA (PCR) Cancelled 05/25/25 05:00
E.chaffeensis DNA (PCR) Not detected 05/22/25 07:05
E. ewingii/canis (PCR) Not detected 05/22/25 07:05
E. muris-like DNA (PCR) Not detected 05/22/25 07:05
HIV Ag/Ab Combo Qual Negative (Negative) 05/24/25 03:58
Miscellaneous Test Cancelled 05/24/25 03:58
�
Diagnostic Results:�as per HPI�
Lumbar MRI�05/23/2025
TECHNIQUE: MRI examinations of the thoracic spine in the lumbar spine were performed with and without intravenous contrast on a 1.5 Dimple magnet. Imaging was performed before and after the intravenous administration of 19 mL Clariscan gadolinium
contrast material.
COMPARISON: CT abdomen/pelvis 06/29/2021.
FINDINGS:
Limited by motion artifact.
THORACIC SPINE:
The vertebral body heights are maintained. No suspicious marrow lesion. Chronic mild multilevel degenerative disc space narrowing, disc desiccation, and endplate osteophytes. No spondylolisthesis.
Small focus of T2 hyperintense signal in the thoracic spinal cord at the T4 level measuring 1.2 cm in length (series 501, image 10). Linear morphology just to the right of midline. Not significantly expansile. The thoracic spinal cord is otherwise
unremarkable.
No abnormal postcontrast enhancement.
A few trace disc bulges/disc protrusions are noted. No significant spinal canal stenosis or neuroforaminal stenosis in the thoracic spine.
LUMBAR SPINE:
The vertebral body heights are maintained. No suspicious marrow lesion. Chronic multilevel disc space narrowing, moderate to severe at L3-L4, moderate at L4-L5, and mild at L1-L2 and L2-L3. Multilevel disc desiccation and endplate osteophytes. STIR
hyperintense degenerative endplate signal at L2-L3 (Modic type I). Fatty degenerative endplate signal at L3-L4 and L4-L5 (Modic type II). Mild degenerative endplate signal noted elsewhere in the lumbar spine. No significant spondylolisthesis.
The conus medullaris terminates at the T12-L1 level and is normal in signal and morphology.
Small disc bulges at T12-L1 and L1-L2. Disc bulges, ligamentum flavum hypertrophy, and facet arthrosis elsewhere in the lumbar spine. Mild left and minimal right neuroforaminal stenosis at L2-L3. Mild spinal canal stenosis, and moderate right and
mild left neuroforaminal stenosis at L3-L4. Moderate spinal canal stenosis, and moderate right and mild left neuroforaminal stenosis at L4-L5. Mild bilateral neuroforaminal stenosis at L5-S1.
IMPRESSION:
Small focus of T2 hyperintense signal in the thoracic spinal cord at the T4 level measuring 1.2 cm in length without enhancement. Linear signal to the right of midline and not significantly expansile. Nonspecific and could be secondary to
demyelination or other inflammatory/infectious etiology for transverse myelitis.
Chronic degenerative changes of the thoracolumbar spine.
Thoracic MRI�05/23/2025
TECHNIQUE: MRI examinations of the thoracic spine in the lumbar spine were performed with and without intravenous contrast on a 1.5 Dimple magnet. Imaging was performed before and after the intravenous administration of 19 mL Clariscan gadolinium
contrast material.
COMPARISON: CT abdomen/pelvis 06/29/2021.
FINDINGS:
Limited by motion artifact.
THORACIC SPINE:
The vertebral body heights are maintained. No suspicious marrow lesion. Chronic mild multilevel degenerative disc space narrowing, disc desiccation, and endplate osteophytes. No spondylolisthesis.
Small focus of T2 hyperintense signal in the thoracic spinal cord at the T4 level measuring 1.2 cm in length (series 501, image 10). Linear morphology just to the right of midline. Not significantly expansile. The thoracic spinal cord is otherwise
unremarkable.
No abnormal postcontrast enhancement.
A few trace disc bulges/disc protrusions are noted. No significant spinal canal stenosis or neuroforaminal stenosis in the thoracic spine.
LUMBAR SPINE:
The vertebral body heights are maintained. No suspicious marrow lesion. Chronic multilevel disc space narrowing, moderate to severe at L3-L4, moderate at L4-L5, and mild at L1-L2 and L2-L3. Multilevel disc desiccation and endplate osteophytes. STIR
hyperintense degenerative endplate signal at L2-L3 (Modic type I). Fatty degenerative endplate signal at L3-L4 and L4-L5 (Modic type II). Mild degenerative endplate signal noted elsewhere in the lumbar spine. No significant spondylolisthesis.
The conus medullaris terminates at the T12-L1 level and is normal in signal and morphology.
Small disc bulges at T12-L1 and L1-L2. Disc bulges, ligamentum flavum hypertrophy, and facet arthrosis elsewhere in the lumbar spine. Mild left and minimal right neuroforaminal stenosis at L2-L3. Mild spinal canal stenosis, and moderate right and
mild left neuroforaminal stenosis at L3-L4. Moderate spinal canal stenosis, and moderate right and mild left neuroforaminal stenosis at L4-L5. Mild bilateral neuroforaminal stenosis at L5-S1.
IMPRESSION:
Small focus of T2 hyperintense signal in the thoracic spinal cord at the T4 level measuring 1.2 cm in length without enhancement. Linear signal to the right of midline and not significantly expansile. Nonspecific and could be secondary to
demyelination or other inflammatory/infectious etiology for transverse myelitis.
Chronic degenerative changes of the thoracolumbar spine.
X-ray knee�left�05/23/2025
3 views of the left knee were performed.
COMPARISON: None.
FINDINGS/IMPRESSION:
No acute fracture or dislocation.
Mild joint space narrowing of the medial tibiofemoral compartment. Tiny patellar marginal osteophytes.
Small suprapatellar joint effusion.
Hypertrophic bone formation along the anterior aspect of the inferior pole of the patella. Localized overlying anterior soft tissue prominence. Findings are of uncertain etiology by radiograph. A chronic prepatellar bursitis is a consideration.
Recommend clinical correlation.
Knee x-ray-right 05/24/2025
TECHNIQUE: 2 views of the right knee were performed.
COMPARISON: 08/07/2006.
FINDINGS/IMPRESSION:
No acute fracture or dislocation.
Moderate joint space narrowing of the lateral tibiofemoral compartment. Mild joint space narrowing of the medial compartment and the patellofemoral compartment.
Moderate to large suprapatellar joint effusion.
Vascular calcifications.
Brain MRI�05/25/2025
TECHNIQUE: An MRI examination of the brain was performed with and without intravenous contrast. Sagittal 3-D T1 weighted gradient echo images are obtained pre and postcontrast, including axial and coronal reconstructions. Axial diffusion-weighted,
axial T2 weighted gradient echo, axial and coronal fast spin-echo T2, and axial FLAIR sequences are also obtained.
COMPARISON: None.
FINDINGS:
No abnormal parenchymal signal intensity is identified. The ventricles and sulci are normal in size and configuration. No mass effect, midline shift, or extra axial collection. No abnormal parenchymal or meningeal enhancement. No abnormal signal
intensity on diffusion-weighted images.
The vascular flow voids at the skull base are unremarkable, as far as visualized.
The paranasal sinuses and mastoids are clear.
IMPRESSION:
No acute intracranial abnormality.
Cervical MRI 05/25/2025
TECHNIQUE: MRI of the cervical spine was performed. The examination consists of coronal and sagittal STIR, sagittal fast spin-echo T2 without and with fat saturation, axial 3-D T2-weighted gradient-echo, sagittal T1-weighted sequences without and
with fat saturation pre- and postcontrast, and pre- and postcontrast axial 3-D T1 weighted gradient-echo sequences.
COMPARISON: Thoracic spine MRI 05/23/2025.
FINDINGS:
The examination is limited by motion artifact.
The vertebral body heights are maintained. No suspicious marrow lesion. Multilevel disc space narrowing, moderate to severe at C4-C5 and C5-C6. Multilevel disc desiccation and endplate osteophytes. No significant spondylolisthesis.
The cervical spinal cord is normal in signal and morphology.
No abnormal postcontrast enhancement.
Axial images demonstrate the following:
C2-C3: A disc bulge, uncovertebral arthrosis, and facet arthrosis contribute to mild left neuroforaminal stenosis. No spinal canal stenosis or right neuroforaminal stenosis.
C3-C4: A central disc protrusion indents the ventral thecal sac and causes mild spinal canal stenosis. Uncovertebral arthrosis and facet arthrosis contribute to mild to moderate right and mild left neuroforaminal stenosis.
C4-C5: A disc osteophyte complex causes moderate spinal canal stenosis. Uncovertebral arthrosis and facet arthrosis contribute to severe left and trace moderate right neuroforaminal stenosis.
C5-C6: Small disc bulge. No spinal canal stenosis. Uncovertebral arthrosis and facet arthrosis contribute to mild bilateral neuroforaminal stenosis.
C6-C7: Small disc bulge. No spinal canal stenosis. Uncovertebral arthrosis and facet arthrosis contribute to mild left neuroforaminal stenosis. No right neuroforaminal stenosis.
C7-T1: No disc herniation. Bilateral facet arthrosis. No spinal canal or neuroforaminal stenosis.
IMPRESSION:
No MRI evidence for signal alteration or enhancement of the cervical spinal cord.
Chronic degenerative changes of the cervical spine including degenerative disc disease with multilevel disc bulges/protrusions, uncovertebral arthrosis, and facet arthrosis.
Moderate spinal canal stenosis at C4-C5.
Mild spinal canal stenosis at C3-C4.
Varying degrees of chronic multilevel bilateral neuroforaminal stenosis, overall most severe on the left at the C4-C5 level.
PROCEDURE: Diagnostic lumbar puncture under fluoroscopic guidance.
COMPARISON: None.
TECHNIQUE: The risks and benefits of the procedure were discussed with the patient and informed, written consent was obtained. The patient was brought into the angiography suite and positioned prone. A time-out was performed to verify the patient's
identity and the planned procedure.
The back was prepped and draped in the usual sterile fashion. Maximum sterile barrier technique was used throughout. The procedure was performed under continuous hemodynamic monitoring.
An appropriate skin entry site to access the lumbar thecal sac was marked at the L4-5 level. 5 cc of 2% lidocaine was administered for local anesthesia. The attempt at this level was unsuccessful therefore the L5-S1 level was marked. 10 mL of 2%
lidocaine was administered for local anesthesia. A 22 gauge Sprotte spinal needle was advanced into the thecal sac with recovery of clear cerebrospinal fluid. An opening pressure of 19.5 cm H2O was obtained. Subsequently 10 mL of clear cerebrospinal
fluid were collected in 4 tubes. Samples were sent to the laboratory for analysis. No closing pressure was obtained. The needle was removed and a sterile dressing was applied. There were no immediate complications.
Fluoro time: 1.4 min
AirKerma: 23.41 mGy
No additional images obtained.
IMPRESSION: 1. Successful fluoroscopically guided lumbar puncture as described. ROCEDURE: Diagnostic lumbar puncture under fluoroscopic guidance.
COMPARISON: None.
TECHNIQUE: The risks and benefits of the procedure were discussed with the patient and informed, written consent was obtained. The patient was brought into the angiography suite and positioned prone. A time-out was performed to verify the patient's
identity and the planned procedure.
The back was prepped and draped in the usual sterile fashion. Maximum sterile barrier technique was used throughout. The procedure was performed under continuous hemodynamic monitoring.
An appropriate skin entry site to access the lumbar thecal sac was marked at the L4-5 level. 5 cc of 2% lidocaine was administered for local anesthesia. The attempt at this level was unsuccessful therefore the L5-S1 level was marked. 10 mL of 2%
lidocaine was administered for local anesthesia. A 22 gauge Sprotte spinal needle was advanced into the thecal sac with recovery of clear cerebrospinal fluid. An opening pressure of 19.5 cm H2O was obtained. Subsequently 10 mL of clear cerebrospinal
fluid were collected in 4 tubes. Samples were sent to the laboratory for analysis. No closing pressure was obtained. The needle was removed and a sterile dressing was applied. There were no immediate complications.
Fluoro time: 1.4 min
AirKerma: 23.41 mGy
No additional images obtained.
IMPRESSION: 1. Successful fluoroscopically guided lumbar puncture as described.
�
Assessment: 64-year-old Right handed male with past medical history of hypertension, hyperlipidemia, gout, hypothyroidism, treated hep C presented to ED with bilateral lower extremity weakness with differential diagnosis to include Guillain-Ramirez�
syndrome. Treated with 5 days of IVIG with improvement of symptoms. Continues to have ambulatory dysfunction and ADL dysfunction
Plan�
PM&R�PT/OT to increase independence with ADLs, improve balance, coordination, endurance, strength, mobility, community reintegration, decreased burden of care on others and family education.�
�
Bilateral lower extremity weakness: unclear etiology. differential diagnosis Guillain-Bainville syndrome: Per neurology, IVIG for total of 5 days. Awaiting lumbar puncture results. C-reactive protein- >270, Angiotensin Converting Enzyme- low <10,
random cortisol- 10.6-normal. CSF culture- preliminary- No growth after 18-24 hours. Completed 4 out of 5 treatments. Feeling better with improved lower extremity strength
HTN: Lisinopril 20mg daily. �
HLD: Statin�
Hyponatremia -stable at 132. Monitor for now.
Hypothyroidism: TSH elevated, 7.5. Levothyroxine dose increased from 75 to 100 mcg daily. Check TSH in 4 weeks.
Acute right elbow gout: presumed diagnosis given known history of gout., allopurinol-600 mg every evening. Previously on colchicine but caused GI upset. Changed to Prednisone 5mg daily by his paper sorter and counter. Started on Prednisone 40mg daily in
hospital.
Peripheral neuropathy: Gabapentin and increase as needed. Add b12
Psych: Psychology consult.� Monitor mood, adjust medications as needed.�
Skin: monitor for pressure sores/rashes/lesions.�
Pain: acetaminophen or Percocet 5/325 q 4 hours as needed.�Hydromorphone 0.5 IV q 4 hours prn
Bowel/constipation: Senokot S, PRN bisacodyl.�Miralax. Last BM per patient 5 days ago. Add colace 100mg bid, change to senna 17 gram daily and rectal Bisacodyl
Bladder: Time void, PVRs, PRN straight cath.�
GI Prophylaxis: Pantoprazole�
DVT Prophylaxis: Lovenox sc
Pulmonary: Incentive spirometry�
Obesity: Continue to mortgage counselor patient about diet adjustments to control obesity. Body habitus and increased force to move body and extremities causes further difficulty with functional tasks.�
Safety: Continue to reinforce assistance with all transfers.�
Code Status:� Full code
Dispo�(date/plan/equipment needs): Home with family care.� Social history reviewed.�
Functional and Medical Goals:�Modified Independent with ADL�s, ambulation, transfers�
Discharge Destination:�Patient with bilateral lower extremity weakness, ambulatory dysfunction presumably from Guillain [place]ain[place] Syndrome would benefit from acute inpatient rehabilitation once medically stable for PT/OT to increase independence with
ADLs, improve balance, coordination, endurance, strength, mobility, community reintegration
Attending Statement:
I saw and examined the patient today. Reviewed care plan with patient, therapy, nursing, and physician teachers' assistant. I agree with the above subjective and physical exam, and plan as documented by MARYAM Menchaca with adjustments made as necessary. A
total of 50 minutes were spent with the patient preparing for the evaluation, obtaining history, performing examination and evaluation, counseling, data review, case management, care coordination, stock order lister, and EMR documentation.
�
Summary of recommendations:
Bowel/constipation: Senokot S, PRN bisacodyl.�Miralax. Add colace 100mg bid, change senokot to senna 17 gram daily and rectal Bisacodyl
Peripheral neuropathy: Gabapentin and increase as needed. Can add b12 supplement
Thank you for allowing me to care for your patient. Please contact me with any questions or concerns.
[2025-05-27] MEDS: LOVENOX 40 MG SC (17:50)
[2025-05-27] MEDS: DULCOLAX 10 MG RECTAL (19:27)
[2025-05-27] MEDS: ZESTRIL 20 MG PO (21:14)
[2025-05-27] MEDS: ZYLOPRIM 600 MG PO (21:15)
[2025-05-28] VITALS (28 sets, daily range): BP systolic 103–159; BP diastolic 77–102; O2SAT 97
[2025-05-28 02:31] LABS: SSA 52 (Ro)(ENA) Ab, IgG 6 AU/mL (0-40); SSA 60 (Ro)(ENA) Ab, IgG 9 AU/mL (0-40); SSB (La)(ENA) Ab, IgG 1 AU/mL (0-40)
--- NOTE | 2025-05-28 03:25 | PTCARENOTE ---
assumed care of patient. pt is AAOx3- able to make needs known. VSS. 98% RA. suppository given at shift change with no result so far. no complaints of belly pain. belly is soft, non-tender. able to use urinal at bedside. pain to right knee 02/03-
pain to right elbow getting better. medicated with pain meds per OCT. care ongoing.
[2025-05-28 04:15] LABS: ALT (SGPT) 49 U/L (0-50); AST (SGOT) 41 U/L (17-59); Albumin 3.9 g/dl (3.5-5.0); Alkaline Phosphatase 87 U/L (38-126); Blood Urea Nitrogen 24 mg/dl (9-20); Calcium 8.9 mg/dl (8.4-10.2); Carbon Dioxide 25 mmol/L (22-30); Chloride 99 mmol/L (98-107); Estimated Creatinine Clearance 82 ml/min; Glucose 165 mg/dl (70-99); Potassium 5.3 mmol/L (3.5-5.1); Sodium 134 mmol/L (135-145); Total Protein 8.3 g/dl (6.3-8.2); eGFR > 60.00
[2025-05-28] MEDS: SYNTHROID 100 MCG PO (05:18)
[2025-05-28] MEDS: SENOKOT-S 1 TABLET PO ×2 (07:52→20:18)
[2025-05-28] MEDS: DELTASONE 40 MG PO (07:52)
[2025-05-28] MEDS: NEURONTIN 300 MG PO ×3 (07:52→20:18)
[2025-05-28] MEDS: THERAGRAN 1 TABLET PO (07:52)
[2025-05-28] MEDS: MIRALAX 17 GRAMS PO (07:52)
--- NOTE | 2025-05-28 08:06 | W.PN.HOSP.TC ---
Addendum entered and electronically signed by Tl Muhammad DO 05/28/25 09:39:
Spoke with neurologist (Dr. Verduzco), okay for discharge to [facility] after IVIG dose today.
Original Note:
Today's Communication/Plan
-
Stop lisinopril
Lokelma
BMP in the morning
IVIG
Assessment / Plan
Assessment / Plan
Gen-AAOx3, NAD
HEENT-NC, AT, anicteric, clear oral mm
Neck-supple
CV-reg, no M, +S1/S2
Lungs-clear B/L
Abd-soft, NT, ND
Ext-no edema
Musculoskeletal-no cyanosis, clubbing, right elbow with mild erythema and tenderness, limited range of motion due to pain.
Skin-warm and dry
Neuro-bilateral lower extremity flaccid paralysis
Psych-calm, cooperative
Acute bilateral lower extremity weakness -bilateral lower extremity weakness significantly worse compared to day of admission 05/22. He actually drove himself into the hospital but states now he is too weak to stand or bear weight. Cannot move his
legs off the bed.
Unclear etiology-->Differential diagnosis includes transverse myelitis versus inflammatory or demyelinating myelopathy versus myasthenia gravis versus Guillain-Ramirez�
Thoracic spine MRI shows small focus of T2 hyperintense signal in the thoracic cord at T4 level measuring 1.2 cm in length without enhancement. Linear signal to the right of midline and not significantly expansile. Nonspecific and could be
secondary to demyelination or other inflammatory/infectious etiology for transverse myelitis.
Brain MRI without acute disease. Cervical spine MRI shows degenerative changes without alteration or enhancement of the cervical spinal cord.
LP done 05/26, report pending. Special studies pending.
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
Although patient denies mosquito bites will check West Nile virus IgM for serum and CSF. He does wear shorts to work with exposed skin.
Clinically improving with improved lower extremity strength. Still has paresthesias of both soles.
Neurology wants to complete 5-day course of IVIG, today 05/28 is day 5.
Serum copper level normal. Zinc level pending. HIV negative. Acetylcholine receptor antibody 0. Syphilis serology positive, RPR weakly reactive, treponemal test pending.
Hyponatremia -improving.
Hyperkalemia -5.3. Stop lisinopril. Give a dose of Lokelma. BMP in the morning.
Constipation -continue bowel regimen. Had a bowel movement today.
Hyperlipidemia:
Continue to hold statin. CPK was normal.
Essential hypertension: Stopping lisinopril due to hyperkalemia. Can use Procardia XL instead.
Hypothyroidism: TSH elevated, 7.5. Levothyroxine dose increased from 75 to 100 mcg daily. Check TSH in 4 weeks.
Acute right elbow gout flare -presumed diagnosis given known history of gout. Doubt other etiologies such as septic arthritis.
Continue allopurinol-he is on 600 mg every evening.
Patient states he was previously on colchicine but caused GI upset and his boiler technician transitioned him a few weeks ago from colchicine to low-dose prednisone 5 mg daily.
Continue prednisone 40 mg daily given improvement in pain and range of motion.
Peripheral neuropathy:
Started on gabapentin and increase as needed
Obesity due to excess calories
PT/OT
DVT prophylaxis:
Lovenox SQ
Full code
Dispo -discharge to [facility] when cleared by neurology.
Anticipated Discharge: Within 24 hours
Subjective/Interval History
-
Date of Service: May 28, 2025
Patient seen and examined. He feels that his lower extremity strength is improving. Right elbow is improving in terms of pain and range of motion. He had a bowel movement today.
Objective Data
-
Labs:
Laboratory Results
05/28/25
03:15
Sodium 134 L
Potassium 5.3 H
Chloride 99
Carbon Dioxide 25
BUN 24 H
Creatinine 0.9
Glucose 165 H
Calcium 8.9
Total Bilirubin 0.7
AST 41
ALT 49
Alkaline Phosphatase 87
Vital Signs:
Vital Signs
Temp Pulse Resp BP Pulse Ox
97.9 F 91 11 143/92 98
05/28/25 03:11 05/28/25 06:00 05/28/25 06:00 05/28/25 06:00 05/27/25 20:25
I&O
05/27/25 05/28/25 05/29/25
06:59 06:59 06:59
Intake Total 300 / 300 480 / 480
Output Total 1250 / 1250 2450 / 2450
Balance -950 / -950 -1970 / -1970
Review of Systems
-
History Source: Patient
All other systems: Reviewed and negative
[2025-05-28 08:47] LABS: West Nile Virus, IgM, Serum 0.00 IV (<=0.89)
--- NOTE | 2025-05-28 08:54 | PTCARENOTE ---
Patient received from shift mgr. Patient resting comfortably in bed. AAO, VSS. No events noted overnight. Continues with complaints of pain in right leg and right elbow, treating elbow with steroids. Patient much more ambulatory and mobile
today. Last dose of IVIG today. No testing scheduled at this time. Plan for [facility]. Call silverman in reach.
--- NOTE | 2025-05-28 09:34 | W.PN.NEURO.1 ---
Addendum entered and electronically signed by Dalton Verduzco MD 05/29/25 08:47:
The patient is doing well. The strength is grossly 5/5 in bilateral upper extremities and grossly 4/5 in bilateral lower extremities. He does not have any breathing problems.
The Patient had 5 days of IVIG treatment.
He is OK to go to inpatient rehab and follow up with Neurology in 2 weeks.
Original Note:
Today's Communication / Plan
-
.
Neuro Assessment/Plan
Assessment
Patient is 64 years old male with history of hypertension, hyperlipidemia, gout, hypothyroidism, presented to [facility] on 05/22/2025 with sudden onset of lower extremity weakness and gait ataxia.
Abrupt onset of lower extremity weakness with gait ataxia and ptosis. Differential diagnosis includes Guillain-Ramirez� syndrome with incidental finding at T4
T-spine MRI w/wo erick�nonenhancing T4 1.2 cm T2 hyperintensity.
NCS/EMG(05/22/2025) mild chronic axonal sensory peripheral polyneuropathy.
CSF protein 73.
Plan
-Continue IVIG due to the possibility of Guillain-Ramirez� syndrome and patient has improved on this treatment, goal of 5 treatments, today is day 5/5.
-Continue PT/OT. Okay to transfer to acute rehab after final dose of IVIG today.
-DVT prophylaxis.
-Follow-up with Neurology as an outpatient. He would likely also benefit from follow-up with a neuromuscular specialist at [facility] as an outpatient.
Subjective/Objective
Subjective Data
Date of Service: May 28, 2025
No acute events overnight. Patient reports that he continues to improve, his left leg feels stronger than his right leg.
Objective Data
Vital Signs
Temp Pulse Resp BP Pulse Ox
97.6 F 91 11 143/92 98
05/28/25 08:06 05/28/25 06:00 05/28/25 06:00 05/28/25 06:00 05/27/25 20:25
Lab Results
05/25/25 03:25
05/28/25 03:15
PT 14.1 Sec (11.4-14.6) 05/25/25 03:25
INR 1.06 05/25/25 03:25
Sodium 134 mmol/L (135-145) L 05/28/25 03:15
Potassium 5.3 mmol/L (3.5-5.1) H 05/28/25 03:15
BUN 24 mg/dl (9-20) H 05/28/25 03:15
Glucose 165 mg/dl (70-99) H 05/28/25 03:15
Calcium 8.9 mg/dl (8.4-10.2) 05/28/25 03:15
Whole Bld Vitamin B1 228 nmol/L (70-180) H 05/23/25 14:03
Vitamin B12 Cancelled 05/22/25 07:34
Patient Allergies
levofloxacin (From Levaquin) Allergy (Verified 05/22/25 22:37)
Nausea / Vomiting
metronidazole (From Flagyl) Allergy (Verified 05/22/25 22:37)
Nausea / Vomiting
Review of Systems
-
History Source: Patient
EENT: Negative Decreased Vision or Swallowing Difficulty
Respiratory: Negative Cough or Trouble Breathing
Cardiac: Negative Chest Pain or Palpitations
Physical Exam
-
General: No Apparent Distress
Eyes: No Ptosis and PERRLA
HEENT: Normocephalic and Atraumatic
Neck: Full Range of Motion
Respiratory: No Dyspnea
GI: Non-distended
Extremities: No Clubbing, No Cyanosis and Edema +1 (right elbow (gout))
Extended Neurological Exam
Mood & Affect: Mood Unremarkable and Affect Unremarkable
Attention Span & Concentration: Awake, Alert, Interactive and No Difficulty with 2 Step Request
Memory: Unremarkable and Able to Recall
Tremor: Hand Tremor Absent and Head Tremor Absent
Involuntary Movement: None
Speech: Quality Unremarkable, Quantity Unremarkable and Rate of Production Unremarkable
Cranial Nerve VII: Facial Symmetry: Normal Facial Symmetry
Cranial Nerve VIII: Hearing: Unremarkable Hearing to Normal Conversational Volume
Muscle Strength, Overall: Reduced Bilaterally (LLE 5-/5, RLE 4+/5) and Full in Upper Extremities
Deep Tendon Reflexes: Unremarkable Throughout
Data Reviewed
-
MRI Head: Report Reviewed and Image Reviewed
MRI Cervical Spine: Report Reviewed and Image Reviewed
MRI Thoracic Spine: Report Reviewed and Image Reviewed
Medical Test Reports: Report Reviewed (CSF)
Labs: Report Reviewed
Reviewed with: Physician and Patient
Medications
-
Active Medications
Generic Name Dose Route Start Last Admin
Trade Name Freq PRN Reason Stop Dose Admin
Acetaminophen 650 mg 05/22/25 11:05 05/23/25 22:20
Acetaminophen 325 Mg Tablet PO 06/19/25 11:04 650 mg
Q4HPRN PRN Administration
mild pain/ANDERS/temp> 100.4F
Allopurinol 600 mg 05/22/25 22:00 05/27/25 21:15
Allopurinol 300 Mg Tablet PO 06/19/25 21:59 600 mg
HS TRAVON Administration
Bisacodyl 10 mg 05/22/25 11:05
Bisacodyl 10 Mg Rectal Suppository RECTAL 06/19/25 11:04
[id number] PRN
constipation
Enoxaparin Sodium 40 mg 05/27/25 18:00 05/27/25 17:50
Enoxaparin Sodium 40 Mg/0.4 Ml Syringe SC 06/24/25 17:59 40 mg
QPM TRAVON Administration
Gabapentin 300 mg 05/23/25 18:00 05/28/25 07:52
Gabapentin 300 Mg Capsule PO 06/20/25 17:59 300 mg
TID TRAVON Administration
Hydromorphone HCl 0.5 mg 05/23/25 13:58 05/24/25 11:44
Hydromorphone 0.5 Mg/0.5 Ml Syringe IV 06/06/25 13:57 0.5 mg
Q4HPRN PRN Administration
severe pain
Immune Globulin 30 grams in 300 mls @ 0 mls/hr 05/22/25 12:00 05/27/25 12:41
Gammagard IV 05/28/25 12:01 300 mls
DAILY@1200 TRAVON Administration
Protocol
Per Protocol
Levothyroxine Sodium 100 mcg 05/25/25 06:00 05/28/25 05:18
Levothyroxine 100 Mcg Tablet PO 06/22/25 05:59 100 mcg
DAILY@0600 TRAVON Administration
Multivitamins Therapeutic 1 tablet 05/23/25 08:00 05/28/25 07:52
Multivitamin Tablet PO 06/20/25 07:59 1 tablet
DAILY TRAVON Administration
Oxycodone/Acetaminophen 1 tablet 05/24/25 11:45 05/27/25 21:14
Oxycodone 5 Mg/Apap 325 Mg (Percocet) PO 06/07/25 11:44 1 tablet
Q4HPRN PRN Administration
moderate pain
Polyethylene Glycol 17 grams 05/25/25 09:10 05/28/25 07:52
Polyethylene Glycol Powder 17 Grams Packet PO 06/22/25 09:09 17 grams
DAILY TRAVON Administration
Prednisone 40 mg 05/27/25 12:00 05/28/25 07:52
Prednisone 20 Mg Tablet PO 06/24/25 11:59 40 mg
DAILY TRAVON Administration
Senna/Docusate Sodium 1 tablet 05/25/25 09:15 05/28/25 07:52
Docusate W/Senna (Rima-Colace) Tablet PO 06/22/25 09:14 1 tablet
BID TRAVON Administration
Sodium Chloride 0 flush 05/22/25 12:00
Sodium Chloride 0.9% (Flush) Syringe IV 06/19/25 11:59
PER PROTOCOL TRAVON
Home Medications
�Medication �Instructions �Recorded
atorvastatin 10 mg tablet 20 mg PO HS High cholesterol 11/14/14
lisinopril 20 mg tablet 20 mg PO HS ##0 12/17/14
allopurinol 300 mg tablet 600 mg PO HS Gout 05/22/25
ibuprofen 200 mg tablet (Advil) 200 mg PO Q6HPRN PRN mild pain 05/22/25
levothyroxine 75 mcg tablet 75 mcg PO DAILY Thyroid 05/22/25
(Synthroid)
prednisone 5 mg tablet 5 mg PO DAILY Anti-Inflammatory 05/22/25
psyllium 1 packet PO DAILY Constipation 05/22/25
therapeutic multivitamin 1 tab PO DAILY Supplement 05/22/25
[2025-05-28] MEDS: LOKELMA 10 GRAM PO (10:14)
--- NOTE | 2025-05-28 10:25 | CM ---
Per Attending, patient is stable for discharge to [facility] today after IV G. [place] spoke with Jessenia Cisse Valmy via # [phone]
Stable for DC to [facility] this afternoon after IG therapy completed, pending [employer] Auth approval; [employer]
Pending AUTH # ip [id number]
Clinicals faxed to #[phone]
Plan: Discharge to [facility] later today pending authorization approval
[2025-05-28] MEDS: GAMMAGARD 300 IV (12:35)
[2025-05-28] MEDS: LOVENOX 40 MG SC (17:54)
[2025-05-28] MEDS: ZYLOPRIM 600 MG PO (20:18)
[2025-05-29] VITALS (7 sets, daily range): BP systolic 127–163; BP diastolic 81–104
--- NOTE | 2025-05-29 00:58 | PTCARENOTE ---
Assumed care for patient overnight. Pt in good spirits regarding improvement in mobility during the daytime. Pt c/o stiffness to right elbow. VSS. Assessment and care as charted. Call silverman within reach.
[2025-05-29 05:12] LABS: Blood Urea Nitrogen 28 mg/dl (9-20); Calcium 9.0 mg/dl (8.4-10.2); Carbon Dioxide 25 mmol/L (22-30); Chloride 102 mmol/L (98-107); Estimated Creatinine Clearance 82 ml/min; Glucose 121 mg/dl (70-99); Potassium 4.6 mmol/L (3.5-5.1); Sodium 137 mmol/L (135-145); eGFR > 60.00
[2025-05-29] MEDS: SYNTHROID 100 MCG PO (06:18)
[2025-05-29] MEDS: NEURONTIN 300 MG PO (07:57)
[2025-05-29] MEDS: SENOKOT-S 1 TABLET PO (07:58)
[2025-05-29] MEDS: MIRALAX 17 GRAMS PO (07:58)
[2025-05-29] MEDS: DELTASONE 40 MG PO (07:58)
[2025-05-29] MEDS: THERAGRAN 1 TABLET PO (07:58)
--- NOTE | 2025-05-29 08:05 | PTCARENOTE ---
Pt AAOx3 eating breakfast no distress no co at this time.
--- NOTE | 2025-05-29 08:40 | W.PN.HOSP.TC ---
Today's Communication/Plan
-
Discharge planning
Assessment / Plan
Assessment / Plan
Gen-AAOx3, NAD
HEENT-NC, AT, anicteric, clear oral mm
Neck-supple
CV-reg, no M, +S1/S2
Lungs-clear B/L
Abd-soft, NT, ND
Ext-no edema
Musculoskeletal-no cyanosis, clubbing, right elbow tenderness and range of motion much improved.
Skin-warm and dry
Neuro-bilateral lower extremity flaccid paralysis
Psych-calm, cooperative
Acute bilateral lower extremity weakness -bilateral lower extremity weakness significantly worse compared to day of admission 05/22. Clinically improving lower extremity weakness.
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
Thoracic spine MRI shows small focus of T2 hyperintense signal in the thoracic cord at T4 level measuring 1.2 cm in length without enhancement. Linear signal to the right of midline and not significantly expansile. Nonspecific and could be
secondary to demyelination or other inflammatory/infectious etiology for transverse myelitis.
Brain MRI without acute disease. Cervical spine MRI shows degenerative changes without alteration or enhancement of the cervical spinal cord.
LP done 05/26, report pending. Special studies pending.
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
West Nile virus serology negative.
Clinically improving with improved lower extremity strength.
Completed 5-day course of IVIG.
Serum copper level normal. Zinc level normal. HIV negative. Acetylcholine receptor antibody 0. Syphilis serology positive, RPR weakly reactive, treponemal test pending.
Hyponatremia -resolved with mild fluid restriction.
Hyperkalemia - possibly due to lisinopril, subsequently discontinued. Potassium improved on labs today.
Constipation -continue bowel regimen. Had a bowel movement today.
Hyperlipidemia:
Continue to hold statin. CPK was normal.
Essential hypertension: Lisinopril discontinued due to hyperkalemia. Blood pressure elevated this morning. Start Procardia XL 30 mg daily. Discussed with patient.
Hypothyroidism: TSH elevated, 7.5. Levothyroxine dose increased from 75 to 100 mcg daily. Check TSH in 4 weeks.
Acute right elbow gout flare -presumed diagnosis given known history of gout. Doubt other etiologies such as septic arthritis.
Continue allopurinol-he is on 600 mg every evening.
Patient states he was previously on colchicine but caused GI upset and his senior principal architect transitioned him a few weeks ago from colchicine to low-dose prednisone 5 mg daily.
Clinically improved on a higher dose of prednisone. Will decrease to 30 mg daily starting tomorrow. Taper down slowly.
Peripheral neuropathy:
Started on gabapentin and increase as needed
Obesity due to excess calories
PT/OT
DVT prophylaxis:
Lovenox SQ
Full code
Dispo -medically stable for discharge to acute rehab. Case management aware. Awaiting insurance approval.
Anticipated Discharge: Today
Subjective/Interval History
-
Date of Service: May 29, 2025
Patient seen and examined. Feeling better, increasing lower extremity strength. Improving right elbow pain and range of motion. No complaints.
Objective Data
-
Labs:
Laboratory Results
05/29/25
04:13
Sodium 137
Potassium 4.6
Chloride 102
Carbon Dioxide 25
BUN 28 H
Creatinine 0.9
Glucose 121 H
Calcium 9.0
Vital Signs:
Vital Signs
Temp Pulse Resp BP Pulse Ox
98.4 F 100 19 163/101 97
05/29/25 08:05 05/29/25 06:00 05/29/25 06:00 05/29/25 06:00 05/29/25 00:55
I&O
05/28/25 05/29/25 05/30/25
06:59 06:59 06:59
Intake Total 480 / 480 860 / 860
Output Total 2450 / 2450 1800 / 1800
Balance -1970 / -1970 -0 /
Review of Systems
-
History Source: Patient
All other systems: Reviewed and negative
[2025-05-29] MEDS: PROCARDIA XL (EXTENDED RELEASE) 30 MG PO (08:59)
--- NOTE | 2025-05-29 11:32 | CM ---
Following up on Patient. Colleague Susan sent in the authorization to [employer] yesterday and it was approved today.
Auth: #[id number]
Days: 7
Dates: 05/28 to 06/04
NRD: 06/04
CAMDEN Rutherford confirmed bed today at [facility] and 1pm picker packer from his room is fine.
Report: #[phone]

IMM Completed, patient and [facility]mith aware.
PLAN: Acute at [facility].
--- NOTE | 2025-05-29 12:31 | W.DS.TRANS ---
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
-
Discharge Instructions:
Discharge Diagnosis/Procedures Guillain-Ramirez� syndrome
Diet Low Cholesterol,Low Fat
Activity With assistance,As tolerated
Driving Restrictions No driving
Bathing Restrictions None
Instructions:
Stand-Alone Forms:
Changes to Home Medications: Yes
Discharge Medications:
DC Medications w/original date entered in [employer]
atorvastatin 10 mg tablet 20 mg PO HS High cholesterol 11/14/14
allopurinol 300 mg tablet 600 mg PO HS Gout 05/22/25
enoxaparin 40 mg/0.4 mL subcutaneous syringe 40 mg (0.4 mL) SC QPM #0 mL 05/29/25
gabapentin 300 mg capsule 300 mg PO TID #0 caps 05/29/25
levothyroxine 100 mcg tablet 100 mcg PO DAILY@0600 #0 tabs 05/29/25
multivitamin with folic acid 400 mcg tablet (Tab-A-Demetri) 1 tab PO DAILY #0 tabs 05/29/25
nifedipine 30 mg tablet,extended release 30 mg PO DAILY #0 tabs 05/29/25
oxycodone-acetaminophen 5 mg-325 mg tablet 1 tab PO Q4HPRN PRN moderate pain #0 tabs 05/29/25
polyethylene glycol 3350 17 gram oral powder packet 17 g PO DAILY #0 ea 05/29/25
prednisone 20 mg tablet 30 mg (1.5 x 20 mg) PO DAILY #0 tabs 05/29/25
sennosides 8.6 mg-docusate sodium 50 mg tablet (Senna Plus) 1 tab PO BID #0 tabs 05/29/25
Home Medication Changes
Levothyroxine dose increased.
Lisinopril discontinued.
Pending Results: No
[2025-05-29 13:31] LABS: Albumin, CSF 26 mg/dL (0-35); Albumin, Serum 3724 mg/dL (3500-5200); IgG, CSF 4.0 mg/dL (0.0-6.0)
--- NOTE | 2025-05-29 14:10 | PTCARENOTE ---
Monitor removed IV removed Pt showered and ready for [facility]
--- NOTE | 2025-05-29 14:40 | PTCARENOTE ---
Pt to [facility] via wc with belongings.
[2025-05-29 14:49] LABS: Syphilis/T. pallidum Ab Reflex Positive (Negative)
== END 2025-05-29 14:40 | DRG 95 ==
LOC: IMU 09:36
PROVIDERS: Physical Medicine & Rehabilitation; Physician Assistant Medical; Psychiatry & Neurology Neurology; Radiology Diagnostic Radiology; Radiology Vascular & Interventional Radiology; ADMITTING PHYSICIAN Hospitalist; ATTENDING PHYSICIAN Hospitalist; CONSULT PHYSICIAN Physical Medicine & Rehabilitation; CONSULT PHYSICIAN Psychiatry & Neurology Neurology; EMERGENCY PHYSICIAN Emergency Medicine; FAMILY PHYSICIAN Family Medicine
PROC: 30233S1 Transfusion of Nonautologous Globulin into Peripheral Vein, Percutaneous Approach (ICD-10-PCS; 2025-05-22)
PROC: 4A01X4Z Measurement of Peripheral Nervous Electrical Activity, External Approach (ICD-10-PCS; 2025-05-22)
PROC: 009U3ZX Drainage of Spinal Canal, Percutaneous Approach, Diagnostic (ICD-10-PCS; 2025-05-26)
DX: G61.0 Guillain-Barre syndrome (principal); E87.1 Hypo-osmolality and hyponatremia; M47.15 Other spondylosis with myelopathy, thoracolumbar region; E87.5 Hyperkalemia; M1A.9XX1 Chronic gout, unspecified, with tophus (tophi); I10 Essential (primary) hypertension; E78.00 Pure hypercholesterolemia, unspecified; E03.9 Hypothyroidism, unspecified; E83.119 Hemochromatosis, unspecified; E11.9 Type 2 diabetes mellitus without complications; B19.20 Unspecified viral hepatitis C without hepatic coma; M19.90 Unspecified osteoarthritis, unspecified site; G60.8 Other hereditary and idiopathic neuropathies; K59.00 Constipation, unspecified; E66.09 Other obesity due to excess calories; Z68.30 Body mass index [BMI] 30.0-30.9, adult; Z79.52 Long term (current) use of systemic steroids
CPT/HCPCS: 51798; 62328; 70553; 72156; 72157; 72158; 73560; 80048; 80053; 81003; 82040; 82042; 82164; 82306; 82525; 82533; 82550; 82553; 82607; 82728; 82746; 82784; 82945; 83873; 83916; 83930; 83935; 84155; 84157; 84165; 84300; 84425; 84439; 84443; 84446; 84550; 84630; 85025; 85027; 85610; 85652; 86038; 86041; 86140; 86235; 86592; 86618; 86780; 86788; 87015; 87070; 87205; 87389; 87468; 87484; 87798; 88108; 89051; 95886; 95911; 97112; 97116; 97163; 97167; 97530; 97535; 99284; A9575; J1569

== ENCOUNTER 2025-06-06 19:42 | Emergency (ER) | payer OTHER, SELFPAY ==
[2025-06-06 19:46] VITALS: BP 139/83
[2025-06-06 19:59] LABS: Hematocrit 40.0 % (39.0-52.0); Hemoglobin 13.3 g/dL (13.0-18.0); Mean Corp Hgb Conc. 33.3 g/dL (33.0-37.0); Mean Corpuscular Volume 95.9 fL (80.0-94.0); Nucleated Red Blood Cells % 0 % (-); Platelet Count 425 10^3/uL (130-400); Red Cell Dist. Width 13.3 % (11.5-14.5)
[2025-06-06 20:25] LABS: ALT (SGPT) 54 U/L (0-50); AST (SGOT) 31 U/L (17-59); Albumin 3.9 g/dl (3.5-5.0); Blood Urea Nitrogen 14 mg/dl (9-20); Calcium 8.8 mg/dl (8.4-10.2); Carbon Dioxide 25 mmol/L (22-30); Chloride 102 mmol/L (98-107); Glucose 214 mg/dl (70-99); Potassium 4.4 mmol/L (3.5-5.1); Sodium 133 mmol/L (135-145); Total Protein 7.5 g/dl (6.3-8.2); Uric Acid 4.0 mg/dl (3.5-8.5); eGFR > 60.00
[2025-06-06 20:34] LABS: Alkaline Phosphatase 76 U/L (38-126)
[2025-06-06 21:13] VITALS: BMI 28.8
[2025-06-06 21:15] VITALS: BP 146/88
[2025-06-06 22:00] VITALS: BP 135/80
[2025-06-06 22:37] VITALS: BP 134/83
[2025-06-06 23:00] VITALS: BP 128/80
[2025-06-06] MEDS: TORADOL 30 MG IM (23:49)
[2025-06-07] VITALS: BP 134/83
[2025-06-07 01:00] VITALS: BP 116/81
--- NOTE | 2025-06-07 01:24 | ED.GENMED ---
History of Present Illness
<Fam Mcbride Jr., PA-C - Last Filed: 06/07/25 02:41>
General
Chief Complaint: Musculo-Skeletal Complaint
Source: patient
Exam Limitations: none
Time Seen by Provider: 06/06/25 21:45
Nursing documentation reviewed up to this point in time: agreed with
History of Present Illness
History of Present Illness:
64-year-old male presenting with concerns of pain to the lower extremities bilaterally distal to the knees. Recently diagnosed with Gamber a syndrome discharged from [facility] ago after having some improving symptoms after receiving IVIG.
Is taking gabapentin for discomfort of the lower extremities. Denies any chest pain shortness of breath denies any history of blood clots was on Lovenox during hospital stay.
Past History
<Fam Mcbride Jr., PA-C - Last Filed: 06/07/25 02:41>
Past History
ED Past Medical History: HTN, Hypercholesterolemia, NIDDM and Other (GOUT, C. difficile, hepatitis C, hemochromatosis, gout, iron deficiency anemia)
ED Past Surgical History: Other (Liver biopsy, left first toe surgical debridement secondary to gout)
Social History
Tobacco: Non-smoker
Alcohol: None
Drug: None
Personal:
Living: with family
Employment: Employed
Family History
Family History: Other (Reviewed and noncontributory)
Review of Systems
<TIFFANIE Cobos Jr. Last Filed: 06/07/25 02:41>
Review of Systems
Allergies reviewed?: Yes
All Other Systems: ROS reviewed and negative except as documented in HPI and ROS
Phy Exam
<TIFFANIE Cobos Jr. Last Filed: 06/07/25 02:41>
Physical Exam
Physical Exam:
GENERAL: Alert , in no apparent distress
EYE: pupils equal and reactive
NECK: Supple, no significant adenopathy.
ENT: o/p clr, mmm.
CARDIAC: Regular rate and rhythm .
LUNGS: Clear breath sounds bilaterally, no acute respiratory distress, no wheezes/rales/rhonchi
ABDOMEN: Soft, without focal tenderness, no r/g, no cvat
NEUROLOGICAL: Alert and oriented, no focal neuro deficits
SKIN: Warm and dry, skin intact.
MUSCULOSKELETAL: Some swelling to the right knee and left ankle. No redness vague warmth good range of motion of the all joints well perfused.
PSYCH: Normal and appropriate interaction.
Course
<Fam Mcbride Jr., PA-C - Last Filed: 06/07/25 02:41>
Orders/Labs/Results
Orders:
Orders
06/06/25 19:54
Complete Blood Count/With Diff Urgent
Comprehensive Metabolic Panel Urgent
Uric Acid Urgent
06/06/25 22:01
Venous Doppler Lwr Ext Left [US Periph Venous LOWER Ext LT] Urgent
Comment:
Reason For Exam: leg pain recent GBS
06/06/25 23:45
Ketorolac [Toradol] 30 mg IM NOW STA
Ketorolac [Toradol] 30 mg IM NOW STA
Abnormal Lab Results
06/06/25
19:54
WBC 12.8 H 10^3/uL
(4.8-10.8)
RBC 4.17 L 10^6/uL
(4.70-6.10)
MCV 95.9 H fL
(80.0-94.0)
MCH 31.9 H pg
(27.0-31.0)
Plt Count 425 H 10^3/uL
(130-400)
Abs Immat Gran (auto) 0.4 H 10^3/uL
(0-0.05)
Absolute Neuts (auto) 8.9 H 10^3/uL
(1.4-6.5)
Absolute Monos (auto) 0.8 H 10^3/uL
(0.1-0.6)
Immature Gran % 3.0 H %
(0-0.5)
Lymphocytes % 20.0 L %
(20.5-51.1)
Sodium 133 L mmol/L
(135-145)
Glucose 214 H mg/dl
(70-99)
ALT 54 H U/L
(0-50)
06/06/25 19:54
06/06/25 19:54
Vital Signs
Initial and Last Documented VS:
Initial Vital Signs
Temp Pulse Resp BP Pulse Ox
97.9 F 95 20 139/83 99
06/06/25 19:46 06/06/25 19:46 06/06/25 19:46 06/06/25 19:46 06/06/25 19:46
Last Documented Vital Signs
Temp Pulse Resp BP Pulse Ox
97.9 F 87 20 116/81 97
06/06/25 19:46 06/07/25 01:00 06/06/25 19:46 06/07/25 01:00 06/07/25 01:25
<Sandoval Grover, DO - Last Filed: 06/07/25 01:57>
Orders/Labs/Results
Orders:
Orders
06/06/25 19:54
Complete Blood Count/With Diff Urgent
Comprehensive Metabolic Panel Urgent
Uric Acid Urgent
06/06/25 22:01
Venous Doppler Lwr Ext Left [US Periph Venous LOWER Ext LT] Urgent
Comment:
Reason For Exam: leg pain recent GBS
06/06/25 23:45
Ketorolac [Toradol] 30 mg IM NOW STA
Ketorolac [Toradol] 30 mg IM NOW STA
Abnormal Lab Results
06/06/25
19:54
WBC 12.8 H 10^3/uL
(4.8-10.8)
RBC 4.17 L 10^6/uL
(4.70-6.10)
MCV 95.9 H fL
(80.0-94.0)
MCH 31.9 H pg
(27.0-31.0)
Plt Count 425 H 10^3/uL
(130-400)
Abs Immat Gran (auto) 0.4 H 10^3/uL
(0-0.05)
Absolute Neuts (auto) 8.9 H 10^3/uL
(1.4-6.5)
Absolute Monos (auto) 0.8 H 10^3/uL
(0.1-0.6)
Immature Gran % 3.0 H %
(0-0.5)
Lymphocytes % 20.0 L %
(20.5-51.1)
Sodium 133 L mmol/L
(135-145)
Glucose 214 H mg/dl
(70-99)
ALT 54 H U/L
(0-50)
06/06/25 19:54
06/06/25 19:54
Vital Signs
Initial and Last Documented VS:
Initial Vital Signs
Temp Pulse Resp BP Pulse Ox
97.9 F 95 20 139/83 99
06/06/25 19:46 06/06/25 19:46 06/06/25 19:46 06/06/25 19:46 06/06/25 19:46
Last Documented Vital Signs
Temp Pulse Resp BP Pulse Ox
97.9 F 87 20 116/81 97
06/06/25 19:46 06/07/25 01:00 06/06/25 19:46 06/07/25 01:00 06/07/25 01:25
<Fam Mcbride Jr., PA-C - Last Filed: 06/07/25 02:41>
MDM/Problems Addressed
MDM/Problems Addressed:
64-year-old male presenting to the emergency department today with concerns of discomfort to the lower extremities bilaterally over the past day or so. Recently diagnosed with Gamber a and discharged from [facility] recently as well. Some vague
swelling to the right knee left ankle not consistent with septic arthritis good range of motion no redness minimal warmth no fevers no systemic symptoms. Patient does have a long history of gout was given a dose of Toradol here with significant
improvement of symptoms. Able to ambulate. Case also discussed with neuro the recommended increasing gabapentin dose as Guillain-Ramirez� syndrome can be very painful. Otherwise stable for discharge return precautions given.
<Fam Mcbride Jr., PA-C - Last Filed: 06/07/25 02:41>
*Pulse Oximetry
SaO2: 97
Oxygen Mode of Delivery: Room air
Patient hypoxic: no (97)
*Critical Care Note
Total Time (30-74mins, 75-104mins- exclusive of procedures): Not Applicable
ED Attending Note
<Fam Mcbride Jr., PA-C - Last Filed: 06/07/25 02:41>
-
Portions of this chart may have been created with voice recognition software.� Occasional wrong word or��sound alike� substitutions may have occurred due to the inherent limitations of voice recognition software.
<Sandoval Grover DO - Last Filed: 06/07/25 01:57>
ED Attending Note
Patient seen and examined by attending physician: Yes
I performed the substantive portion of visit, reviewed & personally made and approve the management plan that is documented in note by myself or SHERON.: Yes
I performed a history and physical exam of patient and discussed management with resident, I reviewed resident's note and agree with documented findings and plan of care.: Yes
ED Attending Note:
64-year-old male presents to the ER for treatment of severe pain to his bilateral lower extremities along with a feeling of weakness. Patient was recently discharged from [facility] after being treated for Guillain-Ramirez�. He had been using
gabapentin but had not had it recently. He denies fevers. No prior personal history of venous thromboembolism. He does have a prior history of gout and admits that this pain does feel similar. Vital signs reviewed, patient is awake, alert,
appears no acute distress, gouty tophi noted on anterior left knee, small joint effusion present to the left ankle which is bearing grinder comparison to palpation of normal right ankle, no erythema overlying the left ankle, right knee with moderate joint
effusion and increased warmth in comparison to left knee, 2+ DP pulses present symmetric bilateral feet, no calf pain on palpation, no erythema, no proximal streaking. I discussed with patient and family members present at bedside clinical exam
most consistent with acute gouty flare of both left ankle and right knee. Will give dose of NSAIDs and assess for pain relief. Ultrasound bilateral lower extremities negative. Physician psychology assistant was also able to review case with on-call
neurologist given recent history of Catarino aranda
Discharge Plan
Departure
Patient Disposition: Home (Routine Discharge)
Date of Disposition: 06/07/25
Time of Disposition: 01:24
Patient with high blood pressure during this ER visit?: No
Condition: Good
Covid-19: Not Applicable
Discharge Problem:
Acute leg pain, Gout
Instructions: Gout
Prescriptions:
New
indomethacin 50 mg capsule
50 mg PO TID 3 Days Qty: 9 0RF
famotidine 20 mg tablet
20 mg PO BID 4 Days Qty: 8 0RF
No Action
allopurinol 300 mg Tablet
600 mg PO HS
gabapentin 300 mg Capsule
300 mg PO TID Qty: 0 0RF
levothyroxine 100 mcg Tablet
100 mcg PO DAILY@0600 Qty: 0 0RF
metoprolol tartrate 25 mg Tablet
25 mg PO TID 30 Days Qty: 90 0RF
multivitamin with folic acid [Tab-A-Demetri] 400 mcg Tablet
1 tab PO DAILY Qty: 0 0RF
Referrals:
UNKNOWN - PT DOES,NOT KNOW [Family Provider]
Activity Restrictions/Additional Instructions:
You came to the emergency department today with concerns of leg pain. Here you have a reassuring assessment with normal ultrasound and labs. Please take the indomethacin for potential gout flare. Also increase your gabapentin to 600 mg 3 times
daily to help with potential neuropathic pain. Otherwise follow-up closely as an outpatient. Return for any worsening, new or concerning symptoms.
Interventions
Interventions:
*Risk Screen - Suicide Last Done: 06/06/25 19:49
*General Assessment Last Done: 06/06/25 19:49
*Neglect/Abuse Screening Last Done: 06/06/25 19:49
*ED- Fall Risk Assessment Last Done: 06/06/25 21:13
*ED COVID-19 Vaccine History Last Done: 06/06/25 19:49
*ED Influenza Vaccine History Last Done: 06/06/25 19:49
*Nursing Disposition Last Done: 06/07/25 01:36
ED-Musculoskeletal Assessment Last Done: 06/06/25 23:42
Discharge Date and Time
Discharge Date/Time: 06/07/25 01:36
Print Language: DANISH
== END 2025-06-07 01:36 | disposition home or self-care (01) ==
LOC: EMR 19:42
PROVIDERS: Emergency Medicine; EMERGENCY PHYSICIAN Emergency Medicine
DX: M79.604 Pain in right leg (principal); M79.605 Pain in left leg; M10.9 Gout, unspecified; I10 Essential (primary) hypertension; E78.00 Pure hypercholesterolemia, unspecified; E11.9 Type 2 diabetes mellitus without complications; E83.110 Hereditary hemochromatosis; Z86.19 Personal history of other infectious and parasitic diseases
CPT/HCPCS: 99284; 96372; 80053; 84550; 85025; 93971

== ENCOUNTER 2025-06-25 06:38 | Outpatient (RCR) | payer OTHER, SELFPAY | END 2025-06-25 23:59 | disposition home or self-care (01) | LOC: RPT 06:38 | PROVIDERS: ATTENDING PHYSICIAN Physical Medicine & Rehabilitation; FAMILY PHYSICIAN Family Medicine | DX: G61.0 Guillain-Barre syndrome (principal); R54 Age-related physical debility; Z73.6 Limitation of activities due to disability | CPT/HCPCS: 97112; 97161; 97530 ==

== ENCOUNTER → 2025-08-19 16:33 | Outpatient (REF) | payer OTHER, SELFPAY | LOC: MRI 16:33 | PROVIDERS: ATTENDING PHYSICIAN Nurse Practitioner Adult Health; FAMILY PHYSICIAN Physician Assistant | DX: R93.89 Abnormal findings on diagnostic imaging of other specified body structures (principal) | CPT/HCPCS: 72157; A9575 ==